=== PATIENT | male | born 1930 | race Caucasian/White ===

== ENCOUNTER 2016-11-14 12:30 | Inpatient (IN) | payer MEDICARE, OTHER ==
[~2016-11-14] VITALS: Ht 177.8 cm; Wt 83.9 kg
--- NOTE | 2016-11-14 13:04 | EKG ---
[facility] [address] [place] [address] Test Date: 2016-11-14 Test Time: 12:36:44 Pat Name: VILMA CELESTIN Department: Room: Gender: Deckhand Maintenance: [place] : 1930 Requested By: Blake CHAMBERS Order Number: [id number] Reading MD: Eugenia Almendarez Measurements Intervals [place] Rate: 90 P: 28 VA: 166 QRS: 0 QRSD: 92 T: 38 QT: 390 QTc: 481 Interpretive Statements SINUS RHYTHM VENTRICULAR PREMATURE COMPLEX(ES) IN COUPLETS No previous ECG available for comparison Electronically Signed On 11-14-2016 21:04:24 CDT by Eugenia Almendarez
--- NOTE | 2016-11-14 13:18 | RAD ---
EXAM: Chest, single view. HISTORY: Syncope. COMPARISON: None. FINDINGS: A frontal view of the chest is obtained. There is no infiltrate, effusion or pneumothorax. The heart is normal in size. There are a few calcified granulomas. There are coarse likely chronic interstitial markings. IMPRESSION: No acute pulmonary finding.
[2016-11-14 13:22] LABS: BASO # 0.1 x10^3/uL (0.0-0.2); BASO % 1 % (0-3); EOS % 2 % (0-3); HEMATOCRIT 40.3 % (39.0-53.0); HEMOGLOBIN 13.4 g/dL (13.0-17.5); LYMPH # 1.5 x10^3/uL (1.0-4.8); LYMPH % 24 % (24-48); MEAN CORPUSCULAR HEMOGLOBIN 30 pg (25-35); MEAN CORPUSCULAR HGB CONC 33 g/dL (31-37); MEAN CORPUSCULAR VOLUME 89 fL (79-100); MONO % 11 % (0-9); NEUT % 62 % (31-73); PLATELET COUNT 173 x10^3/uL (140-400); RED BLOOD COUNT 4.54 x10^6/uL (4.30-5.70); RED CELL DISTRIBUTION WIDTH 14.5 % (11.5-14.5); WHITE BLOOD COUNT 6.1 x10^3/uL (4.0-11.0)
[2016-11-14] MEDS ORDERED: FENTANYL PF 100 MCG/2 ML VIAL. IV PRN ×2 (13:30→15:15)
[2016-11-14 13:42] LABS: CREATININE 2.5 mg/dL (0.7-1.3); GFR 24.6; MAGNESIUM 2.2 mg/dL (1.8-2.4); POTASSIUM 4.1 mmol/L (3.5-5.1)
[2016-11-14] MEDS ORDERED: IV NORMAL SALINE 500ML BAG 500 ML IV ONE (14:00)
--- NOTE | 2016-11-14 14:29 | PHYS DOC ---
Past Medical History Past Medical History: CAD, High Cholesterol, Hypertension Additional Past Medical Histor: V fib arrest Past Surgical History: Other Additional Past Surgical Histo: HERNIA, Cardiac Stent x2 Alcohol Use: None Drug Use: None Adult General Chief Complaint Chief Complaint: SHOULDER INJURY HPI HPI Patient is a 86 year old male who presents with right shoulder pain and right face laceration after fall with presyncope. States he did not have total LOC, but was close. He had an episode of presyncope today and 3 days ago. He saw his PCP yesterday and was feeling well. States both episodes occurred when he changed position from sitting to standing. He tried to reach out with his right hand to catch himself today, and has muscle soreness through right shoulder area , constant, worse with ROM. He denies headache, vision changes, resting dizziness or lightheadedness, chest pain, palpitations, dyspnea, cough, abdominal pain, nausea vomiting, fever or chills, diarrhea, dysuria. Review of Systems Review of Systems Constitutional: Denies fever or chills [] Eyes: Denies change in visual acuity, redness, or eye pain [] HENT: Denies nasal congestion or sore throat [] Respiratory: Denies cough or shortness of breath [] Cardiovascular: No additional information not addressed in HPI [] GI: Denies abdominal pain, nausea, vomiting, bloody stools or diarrhea [] : Denies dysuria or hematuria [] Musculoskeletal: Denies back pain or joint pain [] Integument: Denies rash or skin lesions [] Neurologic: Denies headache, focal weakness or sensory changes [] Endocrine: Denies polyuria or polydipsia [] Current Medications Current Medications Current Medications Medications (Trade) Dose Ordered Sig/Mamta Start Time Stop Time Status Last Admin Dose Admin Acetaminophen (Tylenol) 650 mg PRN Q4HRS PRN 11/14/16 15:15 11/15/16 15:14 Fentanyl Citrate (Fentanyl 2ml Vial) 50 mcg PRN Q2HR PRN 11/14/16 15:15 11/15/16 15:14 Fentanyl Citrate 25 mcg 25 mcg PRN Q15MIN PRN 11/14/16 13:30 11/14/16 13:40 25 MCG Ondansetron HCl (Zofran) 4 mg PRN Q8HRS PRN 11/14/16 15:15 11/15/16 15:14 Sodium Chloride (Iv Sodium Chloride 0.9% 500ml Bag) 500 ml @ 500 mls/hr 1X ONCE 11/14/16 14:00 11/14/16 14:59 DC Allergies Allergies Allergies Coded Allergies Type Severity Reaction Last Updated Verified No Known Drug Allergies 11/14/16 No Physical Exam Physical Exam Constitutional: Well developed, well nourished, no acute distress, non-toxic appearance. [] HENT: Normocephalic, bilateral external ears normal, oropharynx moist, no oral exudates, nose normal. Small abrasion to right cheek that is nonbleeding. No monk sign, hemotympanum, or raccoon eyes [] Eyes: PERRLA, EOMI. [] Neck: Normal range of motion, no tenderness, supple. [] Cardiovascular:Heart rate regular rhythm [] Lungs & Thorax: Bilateral breath sounds clear to auscultation [] Abdomen: Bowel sounds normal, soft, no tenderness. [] Skin: Warm, dry, no erythema, no rash. [] Back: No tenderness, no CVA tenderness. [] Extremities: No tenderness, ROM intact, no edema. [] Neurologic: Alert and oriented X 3, normal motor function, normal sensory function, no focal deficits noted. [] Psychologic: Affect normal, judgement normal, mood normal. [] Current Patient Data Vital Signs Vital Signs Date Time Temp Pulse Resp B/P Pulse Ox O2 Delivery O2 Flow Rate FiO2 11/14/16 13:40 24 98 Room Air 11/14/16 12:45 97.8 90 153/106 97.8 Lab Values Laboratory Tests Test 11/14/16 13:13 White Blood Count 6.1x10^3/uL (4.0-11.0) Red Blood Count 4.54x10^6/uL (4.30-5.70) Hemoglobin 13.4g/dL (13.0-17.5) Hematocrit 40.3% (39.0-53.0) Mean Corpuscular Volume 89fL (79-100) Mean Corpuscular Hemoglobin 30pg (25-35) Mean Corpuscular Hemoglobin Concent 33g/dL (31-37) Red Cell Distribution Width 14.5% (11.5-14.5) Platelet Count 173x10^3/uL (140-400) Neutrophils (%) (Auto) 62% (31-73) Lymphocytes (%) (Auto) 24% (24-48) Monocytes (%) (Auto) 11% (0-9) H Eosinophils (%) (Auto) 2% (0-3) Basophils (%) (Auto) 1% (0-3) Neutrophils # (Auto) 3.8x10^3uL (1.8-7.7) Lymphocytes # (Auto) 1.5x10^3/uL (1.0-4.8) Monocytes # (Auto) 0.7x10^3/uL (0.0-1.1) Eosinophils # (Auto) 0.1x10^3/uL (0.0-0.7) Basophils # (Auto) 0.1x10^3/uL (0.0-0.2) Sodium Level 140mmol/L (136-145) Potassium Level 4.1mmol/L (3.5-5.1) Chloride Level 104mmol/L (98-107) Carbon Dioxide Level 21mmol/L (21-32) Anion Gap 15 (6-14) H Blood Urea Nitrogen 57mg/dL (8-26) H Creatinine 2.5mg/dL (0.7-1.3) H Estimated GFR (Cockcroft-Gault) 24.6 Glucose Level 135mg/dL (70-99) H Calcium Level 9.0mg/dL (8.5-10.1) Magnesium Level 2.2mg/dL (1.8-2.4) Troponin I Quantitative 0.065ng/mL (0.000-0.055) XZ-Zze-H-Type Natriuretic Peptide 2436pg/mL (0-449) H Laboratory Tests 11/14/16 13:13 Laboratory Tests 11/14/16 13:13 EKG EKG EKG as interpreted by me as normal sinus rhythm, rate 90, no ST-T changes, P-R 166, QTC 41, and frequent PVCs Radiology/Procedures Radiology/Procedures Chest xray as interpreted by me with no acute cardiopulmonary disease process Head CT without contrast IMPRESSION: 1. Chronic findings as described above. 2. No acute intracranial abnormality is detected. CT of the cervical spine without contrast, 11/14/2016: IMPRESSION: 1. Moderate multilevel degenerative change as described above. 2. No acute bony abnormality is detected. DICTATED and SIGNED BY: BOLIVAR VILLANUEVA MD DATE: 11/14/16 0593 Course & Med Decision Making Course & Med Decision Making Pertinent Labs and Imaging studies reviewed. (See chart for details) Presyncopal/syncopal episodes are concerning. Imaging is nonacute as above. Has acute on chronic renal insufficiency as well as elevated troponin. Discussed case with Dr. Oneal, who will admit. Discussed case with Dr. Seals, cardiology , for routine consult. Dragon Disclaimer Dragon Disclaimer This electronic medical record was generated, in whole or in part, using a voice recognition dictation system. Departure Departure Impression: Primary Impression: Pre-syncope Additional Impressions: Acute renal failure Elevated troponin Disposition: ADMITTED INPATIENT Condition: STABLE Referrals: LAKHWINDER ONEAL MD (PCP) Problem Qualifiers Additional Impressions: Acute renal failure Acute renal failure type: unspecified Qualified Code: N17.9 - Acute kidney failure, unspecified Blake CHAMBERS MD Nov 14, 2016 14:29
--- NOTE | 2016-11-14 14:59 | RAD ---
CT of the head without contrast, 11/14/2016: History: Syncope, fall, head injury There is mild cerebral atrophy. There are mild bilateral deep white matter lucencies compatible with chronic ischemic change. The ventricles are within normal limits in size. There is no shift of the midline structures. There is no evidence of acute intracranial hemorrhage or mass effect. There is moderate calcific plaquing of the distal internal carotid and vertebral arteries. A small scalp hematoma is noted in the right frontal region. No underlying bony abnormality is detected. IMPRESSION: 1. Chronic findings as described above. 2. No acute intracranial abnormality is detected. CT of the cervical spine without contrast, 11/14/2016: History: Fall, injury Noncontrast scans were obtained with multiplanar reconstructions produced. The cervical vertebral heights are well-maintained. There is moderate disc space narrowing and marginal spurring at multiple levels in the mid and lower cervical spine. There are moderate degenerative changes involving multiple facet joints bilaterally. There is a minimal associated spondylolisthesis at C3-4 and C5-6 due to facet joint arthropathy. There are mild scattered posterior disc bulges. There is mild associated narrowing of the central spinal canal at several levels. No acute fracture or dislocation is evident. There is moderate calcific plaquing at the carotid bifurcations. IMPRESSION: 1. Moderate multilevel degenerative change as described above. 2. No acute bony abnormality is detected. PQRS Compliance Statement: One or more of the following individualized dose reduction techniques were utilized for this examination: 1. Automated exposure control 2. Adjustment of the mA and/or kV according to patient size 3. Use of iterative reconstruction technique
[2016-11-14] MEDS ORDERED: ONDANSETRON PF 4 MG/2 ML VIAL. IV PRN (15:15)
[2016-11-14] MEDS ORDERED: ACETAMINOPHEN 325 MG TABLET. PO PRN (15:15)
--- NOTE | 2016-11-14 16:12 | PDOC2 ---
CYNTHIA GIANG CONVERTIBLE POWER SHOVEL OPERATOR 11/14/16 1612: CARDIAC CONSULT DATE OF CONSULT Date of Consult DATE: 11/14/16 TIME: 15:38 REASON FOR CONSULT Reason for Consult: presyncope REFERRING PHYSICIAN Referring Physician: Horace SOURCE Source: Chart review, Patient HISTORY OF PRESENT ILLNESS HISTORY OF PRESENT ILLNESS This is a pleasant 86 yo male admitted for complains of lightheadedness and fall. Reports that Sunday afternoon he was at [employer] and got lightheaded standing up to read the gospel but immediately resolved after sitting. He end up going home prematurely since he was not feeling good afterwards. He did remember not drinking enough fluids at that time. Sunday around 9AM he started not to feel funny but no experiences of lightheadedness. He just decided to rest that day. Both days he did not have any symptoms of palpitations, SOA nor CP. He has been compliant with his medications. Sunday he did well and no notable complaints till today Sunday when he was no feeling that well to begin with. Around on he was doing laundry at his home with several motions of bending over. After getting out of the laundry room he felt lightheaded. He then leaned to the fridge and decided to sit down trying to reach for the table when he saw floaters, felt lightheaded and noted blurred vision and vision darkening. No tinnitus. No facial droop nor unilateral weakness. Reports that he remembers him falling and no lost of consciousness. after fall he did sustained right facial laceration, supraorbital contusion with swelling and possible contusion or strain to right shoulder. Denies any palpitations, CP, SOA with this event. He then called his friend, a golf club head inspector and adjuster, since his phone is just right by him and was brought to ED. He has been doing well lately till the start of last weekend. Kaleb to do his ADLs without difficulty. PAST MEDICAL HISTORY Cardiovascular: CAD (NSTEMI), CHF (diastolic), HTN, Syncope (associated with NSTEMI and sustained VT), Hyperlipidemia Pulmonary: No pertinent hx CENTRAL NERVOUS SYSTEM: Other (No pertinent history) GI: No pertinent hx Heme/Onc: No pertinent hx Hepatobiliary: No pertinent hx Psych: No pertinent hx Musculoskeletal: Osteoarthritis, Other (traumatic fall 11/2015 associated with very brief cardiac arrest) Infectious disease: No pertinent hx ENT: No pertinent hx Renal/: Chronic renal insuff (CKD3) Endocrine: No pertinent hx Dermatology: No pertinent hx PAST SURGICAL HISTORY Past Surgical History: Arthroscopy (left meniscus repair), Hernia Repair ( right inguinal), Other (PCI/ORQUIDEA to OM1 and LCx 11/2015) FAMILY HISTORY Family History noncontributory to CV SOCIAL HISTORY Smoke: No ALCOHOL: occassional Drugs: None Lives: Alone CURRENT MEDICATIONS CURRENT MEDICATIONS Current Medications Medications (Trade) Dose Ordered Sig/Mamta Route PRN Reason Start Time Stop Time Status Last Admin Dose Admin Fentanyl Citrate (Fentanyl 2ml Vial) 25 mcg PRN Q15MIN PRN IV pain greater than 3 for 3 dose 11/14/16 13:30 11/14/16 13:40 ALLERGIES ALLERGIES: Coded Allergies: No Known Drug Allergies (Unverified , 11/14/16) ROS Review of System 14 point ROS evaluated with pertinent positives noted per HPI PHYSICAL EXAM General: Alert, Oriented X3, Cooperative, No acute distress HEENT: Atraumatic, Mucous membr. moist/pink Lungs: Clear to auscultation, Normal air movement Heart: Normal S1, Normal S2, Other (SR with frequent PVCs) Abdomen: Soft, No tenderness Extremities: No cyanosis, Other (1-2+ bilateral LE pitting edema) Skin: Other (right facial laceration; right supraorbital contusion swelling; no visual disturbances) Neuro: Normal speech, Sensation intact Psych/Mental Status: Mental status NL, Mood NL MUSCULOSKELETAL: Other (limited ROM to left shoulder due to pain) VITALS VITALS Vital Signs Date Time Temp Pulse Resp B/P Pulse Ox O2 Delivery O2 Flow Rate FiO2 11/14/16 13:40 24 98 Room Air 11/14/16 12:45 97.8 90 153/106 97.8 LABS Lab: Laboratory Tests Test 11/14/16 13:13 White Blood Count 6.1x10^3/uL (4.0-11.0) Red Blood Count 4.54x10^6/uL (4.30-5.70) Hemoglobin 13.4g/dL (13.0-17.5) Hematocrit 40.3% (39.0-53.0) Mean Corpuscular Volume 89fL (79-100) Mean Corpuscular Hemoglobin 30pg (25-35) Mean Corpuscular Hemoglobin Concent 33g/dL (31-37) Red Cell Distribution Width 14.5% (11.5-14.5) Platelet Count 173x10^3/uL (140-400) Neutrophils (%) (Auto) 62% (31-73) Lymphocytes (%) (Auto) 24% (24-48) Monocytes (%) (Auto) 11% (0-9) Eosinophils (%) (Auto) 2% (0-3) Basophils (%) (Auto) 1% (0-3) Neutrophils # (Auto) 3.8x10^3uL (1.8-7.7) Lymphocytes # (Auto) 1.5x10^3/uL (1.0-4.8) Monocytes # (Auto) 0.7x10^3/uL (0.0-1.1) Eosinophils # (Auto) 0.1x10^3/uL (0.0-0.7) Basophils # (Auto) 0.1x10^3/uL (0.0-0.2) Sodium Level 140mmol/L (136-145) Potassium Level 4.1mmol/L (3.5-5.1) Chloride Level 104mmol/L (98-107) Carbon Dioxide Level 21mmol/L (21-32) Anion Gap 15 (6-14) Blood Urea Nitrogen 57mg/dL (8-26) Creatinine 2.5mg/dL (0.7-1.3) Estimated GFR (Cockcroft-Gault) 24.6 Glucose Level 135mg/dL (70-99) Calcium Level 9.0mg/dL (8.5-10.1) Magnesium Level 2.2mg/dL (1.8-2.4) Troponin I Quantitative 0.065ng/mL (0.000-0.055) DV-Eji-N-Type Natriuretic Peptide 2436pg/mL (0-449) ASSESSMENT/PLAN ASSESSMENT/PLAN 1. Presyncope with fall (right facial laceration/right supraorbital contusion/ right shoulder pain): Likely vagal episode with element of orthostasis/ dehydration 2. Arrhythmia: frequent PVCs otherwise SR on EKG without acute changes. Bradyarrhythmia possible. 3. CAD: 11/2015 PCI/ORQUIDEA to OM1 and LCx with notable 50% RCA midstenosis. EF at that time was 55%. CP free. 4. Hx of syncope/cardiac arrest associated with NSTEMI and sustained VT r/t CAD on 11/2015 5. Chronic diastolic CHF: compensated, no recent lasix, has been taking lasix intermittently. On lisinopril/HCTZ combo at home 6. HTN: controlled, reports controlled at home as well 7. HLP 8. Mild troponin elevation: initially at 0.065 in the setting renal insufficiency 9. WARNER on CKD: suspect baseline stage 3. likely inadequate po hydration. 10. UTI: per PCP Recommendation 1. Will check for orthostasis. Hold lisinopril/HCTZ. 2. Monitor tele for any significant arrhythmia. TTE today 3. Continue secondary prevention 4. If no significant rhythm changes then will plan for event monitor vs loop recorder. 5. Trend troponin, will consider for ischemic workup pending TTE and trop trend. NPO p MN 6. Continue with secondary prevention. Plavix 7. IVF received in ED. Maintain adequate hydration. 8. TSH, lipids, 9. Recommend right shoulder Xray will defer to PCP 10. Check CK. Recommend renal consult, defer to PCP 11. On adalat at home. Will hold this and will place on low dose metoprolol and note response overnight. 12. PRN IV hydralazine Problems: JUAN CORTES MD 11/15/16 1508: CARDIAC CONSULT ALLERGIES ALLERGIES: Coded Allergies: No Known Drug Allergies (Unverified , 11/14/16) ASSESSMENT/PLAN ASSESSMENT/PLAN Patient seen and examined 11/15/16. Agree with ACCOUNT SUPPORT REP's assessment and plan. Patient with history of coronary artery disease has been admitted with near syncope. Check orthostatics. Monitor with telemetry to rule out any significant arrhythmias. Check 2-D echo to rule out any significant structural abnormalities. We will consider further ischemic workup based on trend of serial cardiac enzymes. Thank you for the consultation. Problems: CYNTHIA GIANG APRN Nov 14, 2016 16:12 JUAN CORTES MD Nov 15, 2016 15:08
[2016-11-14 16:31] VITALS: BP 146/77
--- NOTE | 2016-11-14 16:45 | ACF ---
Admission Forms Criteria SYNCOPE Clinical Indications for Admission to Inpatient Care ( Place 'X' for any and all applicable criteria): Admission is indicated for syncope and ANY ONE of the following (1)(2)(3)(4)(5) (6)(7) : [ ]I. Inpatient admission required rather than observation care (Also use Syncope: Observation Care Criteria as appropriate) because of ANY ONE of the following: [ ]a) Hemodynamic instability that is severe or persistent [ ]b) Cardiac arrhythmias of immediate concern identified or strongly suspected (eg, needs electrophysiologic study) [ ]c) Acute coronary syndrome identified (Also use Myocardial Infarction or Angina Criteria form ) [ ]d) Structural cardiac disorder (eg, aortic stenosis) suspected as cause that requires immediate correction [ ]e) Respiratory symptoms (eg, dyspnea, tachypnea) that are severe or persistent [ ]f) Neurologic signs or symptoms that are severe or persistent ( eg, stroke, seizures, altered mental status) [ ]g) Severe electrolyte abnormalities requiring inpatient care [ ]h) Supplemental oxygen or respiratory treatment for over 24 hrs that are performable only in acute inpatient setting [ ]i) IV fluid to replace significant ongoing (eg, for over 24 hrs ) losses (>3 L/m2 per day) [ ]j) Continuous intravenous infusion of anticoagulation, platelet inhibitor, vasoactive, or antiarrhythmic medication(15)(16) [ ]k) Pulmonary artery catheter monitoring [ ]l) Temporary pacemaker placement(17) [ ]m) Emergent cardioversion(18) [ ]n) Other conditions, treatment or monitoring requiring inpatient admission [ ]II. Suspicion of imminently dangerous cause (eg, rare causes like pericardial tamponade, pulmonary embolism) [X]III. Syncope causing severe injury requiring hospitalization Extended stay beyond goal length of stay may be needed for(28) [ ]a) Dangerous arrhythmia(15)(23)(27)(29) [ ]b) Myocardial ischemia [ ]c) Seizure disorder [ ]d) Syncope-related injuries The original [employer] content created by [employer] has been revised. The portions of the content which have been revised are identified through the use of italic text or in bold, and [facility] has neither reviewed nor approved the modified material. All other unmodified content is copyright [facility]. Please see references footnoted in the original [facility] 2016 Admission Criteria Met?: Yes ARACELI COPELAND Nov 14, 2016 16:45
[2016-11-14 16:52] LABS: ALBUMIN 3.6 g/dL (3.4-5.0); ALBUMIN/GLOBULIN RATIO 1.2 (1.0-1.7); CREATININE 2.4 mg/dL (0.7-1.3); GFR 25.7; POTASSIUM 4.1 mmol/L (3.5-5.1); TOTAL BILIRUBIN 0.5 mg/dL (0.2-1.0); TOTAL PROTEIN 6.7 g/dL (6.4-8.2)
[2016-11-14 17:50] VITALS: BP 152/67
[2016-11-14 17:55] VITALS: BP 141/67
[2016-11-14 18:00] VITALS: BP 125/71
[2016-11-14 18:39] LABS: BILIRUBIN,URINE NEGATIVE (NEG); GLUCOSE,URINE NEGATIVE (NEG); NITRITE,URINE NEGATIVE (NEG); PROTEIN,URINE 100 mg/dL (NEG-TRACE); UROBILINOGEN,URINE 0.2 mg/dL (0.2 mg/dL)
[2016-11-14] MEDS ORDERED: ADENOSINE 6 MG/2 ML VIAL. IV ONE ×2 (18:45)
[2016-11-14 18:54] LABS: BACTERIA,URINE 0 /HPF (0-FEW); WBC,URINE 20-40 /HPF (0-4)
[2016-11-14] MEDS ORDERED: AMIODARONE 900 MG in IV DEXTROSE 5% 500 ML IV PRN (19:00)
[2016-11-14] MEDS ORDERED: AMIODARONE 150 MG in IV DEXTROSE 5% 100 ML IV ONE (19:00)
--- NOTE | 2016-11-14 21:10 | PDOC ---
GENERAL General: see dictated H&P. Problems: VITAL SIGNS Vital Signs: Vital Signs Date Time Temp Pulse Resp B/P Pulse Ox O2 Delivery O2 Flow Rate FiO2 11/14/16 19:30 Nasal Cannula 2.0 11/14/16 18:54 87 146/77 11/14/16 18:00 18 96 11/14/16 16:31 97.3 97.3 ALLERGIES Allergies: Allergies Coded Allergies Type Severity Reaction Last Updated Verified No Known Drug Allergies 11/14/16 No MEDS Medications: Current Medications Medications (Trade) Dose Ordered Sig/Mamta Start Time Stop Time Status Last Admin Dose Admin Acetaminophen (Tylenol) 650 mg PRN Q4HRS PRN 11/14/16 15:15 11/15/16 15:14 Adenosine (Adenocard) 12 mg 1X ONCE 11/14/16 18:45 11/14/16 18:46 DC Amiodarone HCl 150 mg/Dextrose 103 ml @ 618 mls/hr 1X ONCE 11/14/16 19:00 11/14/16 19:09 DC 11/14/16 18:54 618 MLS/HR Amiodarone HCl/ Dextrose (Cordarone) 518 ml @ 0 mls/hr CONT PRN 11/14/16 19:00 Clopidogrel Bisulfate (Plavix) 75 mg [id number] 11/15/16 08:00 Fentanyl Citrate (Fentanyl 2ml Vial) 50 mcg PRN Q2HR PRN 11/14/16 15:15 11/15/16 15:14 Fentanyl Citrate 25 mcg 25 mcg PRN Q15MIN PRN 11/14/16 13:30 11/14/16 13:40 25 MCG Hydralazine HCl 10 mg 10 mg PRN Q4HRS PRN 11/14/16 16:30 Metoprolol Tartrate (Lopressor) 12.5 mg BID 11/14/16 21:00 Ondansetron HCl (Zofran) 4 mg PRN Q8HRS PRN 11/14/16 15:15 11/15/16 15:14 Sodium Chloride (Iv Sodium Chloride 0.9% 500ml Bag) 500 ml @ 500 mls/hr 1X ONCE 11/14/16 14:00 11/14/16 14:59 DC 11/14/16 16:02 500 MLS/HR LAB Lab: Laboratory Tests Test 11/14/16 13:13 11/14/16 17:30 11/14/16 19:45 White Blood Count 6.1x10^3/uL (4.0-11.0) Red Blood Count 4.54x10^6/uL (4.30-5.70) Hemoglobin 13.4g/dL (13.0-17.5) Hematocrit 40.3% (39.0-53.0) Mean Corpuscular Volume 89fL (79-100) Mean Corpuscular Hemoglobin 30pg (25-35) Mean Corpuscular Hemoglobin Concent 33g/dL (31-37) Red Cell Distribution Width 14.5% (11.5-14.5) Platelet Count 173x10^3/uL (140-400) Neutrophils (%) (Auto) 62% (31-73) Lymphocytes (%) (Auto) 24% (24-48) Monocytes (%) (Auto) 11% (0-9) Eosinophils (%) (Auto) 2% (0-3) Basophils (%) (Auto) 1% (0-3) Neutrophils # (Auto) 3.8x10^3uL (1.8-7.7) Lymphocytes # (Auto) 1.5x10^3/uL (1.0-4.8) Monocytes # (Auto) 0.7x10^3/uL (0.0-1.1) Eosinophils # (Auto) 0.1x10^3/uL (0.0-0.7) Basophils # (Auto) 0.1x10^3/uL (0.0-0.2) Sodium Level 140mmol/L (136-145) Potassium Level 4.1mmol/L (3.5-5.1) Chloride Level 104mmol/L (98-107) Carbon Dioxide Level 20mmol/L (21-32) Anion Gap 16 (6-14) Blood Urea Nitrogen 56mg/dL (8-26) Creatinine 2.4mg/dL (0.7-1.3) Estimated GFR (Cockcroft-Gault) 25.7 BUN/Creatinine Ratio 23 (6-20) Glucose Level 136mg/dL (70-99) Calcium Level 9.0mg/dL (8.5-10.1) Magnesium Level 2.2mg/dL (1.8-2.4) Total Bilirubin 0.5mg/dL (0.2-1.0) Aspartate Amino Transf (AST/SGOT) 21U/L (15-37) Alanine Aminotransferase (ALT/SGPT) 26U/L (16-63) Alkaline Phosphatase 78U/L (46-116) Creatine Kinase 261U/L (39-308) Troponin I Quantitative 0.065ng/mL (0.000-0.055) 0.099ng/mL (0.000-0.055) RT-Gxv-B-Type Natriuretic Peptide 2436pg/mL (0-449) Total Protein 6.7g/dL (6.4-8.2) Albumin 3.6g/dL (3.4-5.0) Albumin/Globulin Ratio 1.2 (1.0-1.7) Thyroid Stimulating Hormone (TSH) 1.430uIU/mL (0.358-3.74) Urine Collection Type Unknown Urine Color Yellow Urine Clarity Clear Urine pH 6.0 Urine Specific [place] 1.015 Urine Protein 100mg/dL (NEG-TRACE) Urine Glucose (UA) Negativemg/dL (NEG) Urine Ketones (Stick) Negativemg/dL (NEG) Urine Blood Small (NEG) Urine Nitrite Negative (NEG) Urine Bilirubin Negative (NEG) Urine Urobilinogen Dipstick 0.2mg/dL (0.2 mg/dL) Urine Leukocyte Esterase Moderate (NEG) Urine RBC 1-2/HPF (0-2) Urine WBC 20-40/HPF (0-4) Urine Bacteria 0/HPF (0-FEW) LAKHWINDER AMAYA MD Nov 14, 2016 21:09
[2016-11-14] MEDS: METOPROLOL TART IMMED RELEASE 25 MG TABLET PO SCH (22:19)
[2016-11-14 22:48] VITALS: BP 144/75
--- NOTE | 2016-11-15 01:07 | HP ---
ADMIT DATE: 11/14/2016 CHIEF COMPLAINT AND HISTORY OF PRESENT ILLNESS: This 86-year-old white male is well known to me from followup in the office. The patient had a presyncopal episode on the day of admission with fall sustaining a right shoulder injury as well as right facial lacerations. He states he did not completely lose consciousness, but things started to go dark. I had seen him in the office the day prior to this admission when he had had a ____ on Sunday afternoon where he stood up and got ringing in his ears and sat back down and it went away almost immediately and ____. There was another spell on Sunday where he had just not felt good allover in a week, but no lightheadedness or anything associated with that. Because of the presyncopal episode and the above, the patient was admitted to the hospital. PAST MEDICAL HISTORY: Remarkable for coronary artery disease with stenting of the circumflex coronary artery, has a history of hypertension, hyperlipidemia, chronic kidney disease with a creatinine in the 2 range, had prior V-fib with arrest necessitating a stenting to his circumflex. He has a history of hernia repair. MEDICATIONS: Brought with the patient, listed on the computer and have been addressed. ALLERGIES: He has no known drug allergies. SOCIAL HISTORY: He is , nonsmoker, nondrinker, does not use drugs, he is very active. FAMILY HISTORY: Noncontributory. REVIEW OF SYSTEMS: As mentioned above. PHYSICAL EXAMINATION: GENERAL: He is a well-developed, well-nourished white male appearing younger than his stated age. HEAD, EYES, EARS, NOSE AND THROAT: Remarkable for a small abrasion in the right cheek. NECK: Supple without adenopathy or thyromegaly. CHEST: Clear to auscultation and percussion. HEART: Regular rate and rhythm without S3, S4, or murmur. ABDOMEN: Soft, nontender, without hepatosplenomegaly or masses. EXTREMITIES: Without cyanosis, clubbing, or edema. He has some pain with range of motion of the right shoulder. NEUROLOGIC: Nonfocal. The patient did have imaging done of the head. CT of the head showing no acute changes as well as a CT of the neck showing no acute changes, and chest x-ray was unremarkable. Laboratory screening in the office showed essentially normal CBC, creatinine of 2.4 with BUN of 56, and BNP of 2400. Troponin was elevated at 0.065 on admission. Urine showing 20-40 white blood cells, but no bacteria. IMPRESSION: Presyncopal episode with right shoulder injury as listed above. PLAN: The patient has been admitted. Cardiology has been consulted with his cardiac history. The patient will be monitored, managed, and treated appropriately. LAKHWINDER AMAYA MD DR: DORA/greyson JOB#: [id number] / [id number]
[2016-11-15 02:48] VITALS: BP 135/73
[2016-11-15 04:59] LABS: CHOLESTEROL/HDL RATIO 2.2
[2016-11-15 07:00] VITALS: BP 158/74
[2016-11-15] MEDS: CLOPIDOGREL BISULFATE 75 MG TABLET PO SCH (08:25)
[2016-11-15] MEDS: METOPROLOL TART IMMED RELEASE 25 MG TABLET PO SCH ×2 (08:27→21:54)
[2016-11-15] MEDS ORDERED: HEPARIN 25,000UTS/500ML PREMIX 500 ML IV PRN (09:15)
[2016-11-15] MEDS ORDERED: ASPIRIN 81 MG TAB.CHEW PO SCH (09:15)
[2016-11-15] MEDS ORDERED: HEPARIN for IV BOLUS 10,000 UNIT/10 ML VIAL. IV PRN (09:15)
[2016-11-15] MEDS ORDERED: HEPARIN for IV BOLUS 10,000 UNIT/10 ML VIAL. IV ONE (09:45)
[2016-11-15] MEDS ORDERED: METOPROLOL TART IMMED RELEASE 25 MG TABLET PO ONE (09:45)
--- NOTE | 2016-11-15 09:51 | PDOC ---
CYNTHIA GIANG RAILROAD REPAIRER 11/15/16 0951: CARDIO Progress Notes Date and Time Date of Service 11/15/2016 Time of Evaluation 0900 Subjective Subjective: No Chest Pain, No shortness of breath, No Palpitations, No Dizziness Vitals Vitals Vital Signs Date Time Temp Pulse Resp B/P Pulse Ox O2 Delivery O2 Flow Rate FiO2 11/15/16 08:27 75 158/74 11/15/16 07:00 98.1 22 99 Nasal Cannula 98.1 11/15/16 02:48 2.0 Weight Weight [ ] Input and Output Intake and Output Intake and Output 11/15/16 07:00 Intake Total 250 ml Output Total 350 ml Balance -100 ml Intake Oral 250 ml Output Urine Total 350 ml Laboratory Labs Laboratory Tests Test 11/14/16 13:13 11/14/16 17:30 11/14/16 19:45 11/15/16 03:12 White Blood Count 6.1x10^3/uL (4.0-11.0) Red Blood Count 4.54x10^6/uL (4.30-5.70) Hemoglobin 13.4g/dL (13.0-17.5) Hematocrit 40.3% (39.0-53.0) Mean Corpuscular Volume 89fL (79-100) Mean Corpuscular Hemoglobin 30pg (25-35) Mean Corpuscular Hemoglobin Concent 33g/dL (31-37) Red Cell Distribution Width 14.5% (11.5-14.5) Platelet Count 173x10^3/uL (140-400) Neutrophils (%) (Auto) 62% (31-73) Lymphocytes (%) (Auto) 24% (24-48) Monocytes (%) (Auto) 11% (0-9) Eosinophils (%) (Auto) 2% (0-3) Basophils (%) (Auto) 1% (0-3) Neutrophils # (Auto) 3.8x10^3uL (1.8-7.7) Lymphocytes # (Auto) 1.5x10^3/uL (1.0-4.8) Monocytes # (Auto) 0.7x10^3/uL (0.0-1.1) Eosinophils # (Auto) 0.1x10^3/uL (0.0-0.7) Basophils # (Auto) 0.1x10^3/uL (0.0-0.2) Sodium Level 140mmol/L (136-145) Potassium Level 4.1mmol/L (3.5-5.1) Chloride Level 104mmol/L (98-107) Carbon Dioxide Level 20mmol/L (21-32) Anion Gap 16 (6-14) Blood Urea Nitrogen 56mg/dL (8-26) Creatinine 2.4mg/dL (0.7-1.3) Estimated GFR (Cockcroft-Gault) 25.7 BUN/Creatinine Ratio 23 (6-20) Glucose Level 136mg/dL (70-99) Calcium Level 9.0mg/dL (8.5-10.1) Magnesium Level 2.2mg/dL (1.8-2.4) Total Bilirubin 0.5mg/dL (0.2-1.0) Aspartate Amino Transf (AST/SGOT) 21U/L (15-37) Alanine Aminotransferase (ALT/SGPT) 26U/L (16-63) Alkaline Phosphatase 78U/L (46-116) Creatine Kinase 261U/L (39-308) Troponin I Quantitative 0.065ng/mL (0.000-0.055) 0.099ng/mL (0.000-0.055) 0.256ng/mL (0.000-0.055) EH-Psb-P-Type Natriuretic Peptide 2436pg/mL (0-449) Total Protein 6.7g/dL (6.4-8.2) Albumin 3.6g/dL (3.4-5.0) Albumin/Globulin Ratio 1.2 (1.0-1.7) Thyroid Stimulating Hormone (TSH) 1.430uIU/mL (0.358-3.74) Urine Collection Type Unknown Urine Color Yellow Urine Clarity Clear Urine pH 6.0 Urine Specific [place] 1.015 Urine Protein 100mg/dL (NEG-TRACE) Urine Glucose (UA) Negativemg/dL (NEG) Urine Ketones (Stick) Negativemg/dL (NEG) Urine Blood Small (NEG) Urine Nitrite Negative (NEG) Urine Bilirubin Negative (NEG) Urine Urobilinogen Dipstick 0.2mg/dL (0.2 mg/dL) Urine Leukocyte Esterase Moderate (NEG) Urine RBC 1-2/HPF (0-2) Urine WBC 20-40/HPF (0-4) Urine Bacteria 0/HPF (0-FEW) Triglycerides Level 76mg/dL (0-150) Cholesterol Level 121mg/dL (0-200) LDL Cholesterol, Calculated 52mg/dL (0-100) VLDL Cholesterol, Calculated 15mg/dL (0-40) HDL Cholesterol 54mg/dL (40-60) Cholesterol/HDL Ratio 2.2 Physical Exam HEENT: Neck Supple W Full Motion Chest: Symmetric LUNGS: Clear to Auscultation Heart: S1S2, RRR (SR, episode of sutained VT yesterday), murmurs (2/6 systolic murmur to LLS border) Abdomen: Soft N/T Extremities: No Calf Tenderness, Other (1-2+ bilateral LE pitting edema) Neurology: alert, oriented, follow commands Assessment Assessment 1. Sustained VT about 1800 (approximately 20 minutes duration per staff) with syncope at rest (approx 5 minutes per staff): spontaneously resolved, unresponsive to adenosines 2. Presyncope at home with traumatic fall: likely occurrence as above. Possible mild orthostasis. 3. CAD: 11/2015 PCI/ORQUIDEA to OM1 and LCx with notable 50% RCA midstenosis. EF at that time was 55%. Remains CP free. 4. Elevated troponin: currently at 0.256, expected with previous arrhythmia. Will need to rule out underlying ischemic etiology in relation to #1. 5. Hx of syncope/cardiac arrest associated with NSTEMI and sustained VT r/t CAD on 11/2015 6. 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 HTN: controlled 8. HLP 9. Chronic diastolic CHF: compensated Recommendations 1. Continue with DAPT and amiodarone, increase BB, start on heparin drip 2. Consult renal, anticipate LHC tomorrow pending renal optimization 3. Repeat EKG, TTE pending 4. Continue to hold HCTZ/ACEi/adalat 5. Will start on norvasc pending BP trend after BB adjustment 6. Repeat EKG and troponin 7. VT ablation AICD is a consideration pending result of LHC 8. BMP and Mg today replace K and Mg as warranted. JUAN CORTES MD 11/15/16 9125: CARDIO Progress Notes Assessment Assessment Patient seen and examined. Agree with SPECIAL EDUCATION ADMINISTRATOR's assessment and plan. Episode of approximately 20 minute run of symptomatic ventricular tachycardia noted. Plan for cardiac catheterization in the morning to rule out any significant coronary artery disease. If this does not show any significant stenosis, we will consider AICD implantation for secondary prevention. CYNTHIA GIANG APRN Nov 15, 2016 09:51 JUAN CORTES MD Nov 15, 2016 15:15
--- NOTE | 2016-11-15 10:05 | EKG ---
[facility] [address] [place] [address] Test Date: 2016-11-15 Test Time: 10:03:43 Pat Name: VILMA CELESTIN Department: Room: 208 1 Gender: M Relations Specialist: BLAKE : 1930 Requested By: CYNTHIA GIANG Order Number: [id number] Reading MD: Javier Garcia Measurements Intervals [place] Rate: 70 P: 33 IA: 186 QRS: 1 QRSD: 92 T: 41 QT: 416 QTc: 452 Interpretive Statements SINUS RHYTHM QRS(T) CONTOUR ABNORMALITY CONSIDER ANTEROLATERAL MYOCARDIAL DAMAGE POSSIBLY ABNORMAL ECG Electronically Signed On 11-20-2016 17:01:01 CDT by Javier Garcia
[2016-11-15] MEDS ORDERED: CLOP75TA PO (10:33)
[2016-11-15] MEDS ORDERED: NIFE60TA16 PO (10:33)
[2016-11-15] MEDS ORDERED: LISI1TAB5 PO (10:33)
[2016-11-15] MEDS ORDERED: ATOR40TA59 PO (10:33)
--- NOTE | 2016-11-15 10:40 | EKG ---
[facility] [address] [place] [address] Test Date: 2016-11-14 Test Time: 18:10:35 Pat Name: VILMA CELESTIN Department: Room: 208 1 Gender: M Licensed Professional Counselor: BLAKE : 1930 Requested By: LAKHWINDER AMAYA Order Number: [id number] Reading MD: Eugenia Almendarez Measurements Intervals [place] Rate: 213 P: DC: QRS: 32 QRSD: 126 T: -152 QT: 260 QTc: 491 Interpretive Statements WIDE QRS TACHYCARDIA CANNOT RULE OUT VETRICULAR TACHYCARDIA ABNORMAL ECG RI6.01 Compared to ECG 11/14/2016 12:36:44 Sinus rhythm no longer present Electronically Signed On 11-15-2016 20:00:10 CDT by Eugenia Almendarez
--- NOTE | 2016-11-15 10:57 | PDOC2 ---
CONSULT Date of Consult Date of Consult DATE: 11/15/16 TIME: 10:53 Reason for Consult Reason for Consult: RENAL FAILURE Referring Physician Referring Physician: JOSE LUIS Identification/Chief Complaint Chief Complaint SYNCOPE Source Source: Chart review, Patient History of Present Illness Reason for Visit: THIS IS AN 86 YR OLD WITH SYNCOPE AND CARDIAC ARRHYTHMIA. HIS TROPONIN HAS BEEN HIGH. HE IS IN NEED OF A HEART CATH. HIS CR IS 2.4. NO OLD RECORDS HERE. ACCORDING TO DR AMAYA'S NOTE HIS BASELINE CR IS ABOUT 2.0. NO HX OF ANY KIDNEY OR BLADDER SURGERIES HEMATURIA DYSURIA OR FREQUENCY NOTED Past Medical History Cardiovascular: CAD (NSTEMI), CHF (diastolic), HTN, Syncope (associated with NSTEMI and sustained VT), Hyperlipidemia Pulmonary: No pertinent hx CENTRAL NERVOUS SYSTEM: Other (No pertinent history) GI: No pertinent hx Heme/Onc: No pertinent hx Hepatobiliary: No pertinent hx Psych: No pertinent hx Musculoskeletal: Osteoarthritis, Other (traumatic fall 11/2015 associated with very brief cardiac arrest) Infectious disease: No pertinent hx ENT: No pertinent hx Renal/: Chronic renal insuff (CKD3) Endocrine: No pertinent hx Dermatology: No pertinent hx Past Surgical History Past Surgical History: Arthroscopy (left meniscus repair), Hernia Repair ( right inguinal), Other (PCI/ORQUIDEA to OM1 and LCx 11/2015) Social History No ALCOHOL: occassional Drugs: None Lives: Alone Current Problem List Problem List Problems Medical Problems: (1) Acute renal failure Status: Acute (2) Elevated troponin Status: Acute (3) Pre-syncope Status: Acute (4) Syncope Status: Acute Current Medications Current Medications Current Medications Fentanyl Citrate 25 mcg 25 mcg PRN Q15MIN PRN IV pain greater than 3 for 3 dose Last administered on 11/14/16 13:40; Start 11/14/16 at 13:30 Sodium Chloride (Iv Sodium Chloride 0.9% 500ml Bag) 500 ml @ 500 mls/hr 1X ONCE IV Last administered on 11/14/16 16:02; Start 11/14/16 at 14:00; Stop at 14:59; Status DC Ondansetron HCl (Zofran) 4 mg PRN Q8HRS PRN IV NAUSEA/VOMITING; Start 11/14/16 at 15:15; Stop 11/15/16 at 15:14 Fentanyl Citrate (Fentanyl 2ml Vial) 50 mcg PRN Q2HR PRN IV PAIN; Start at 15:15; Stop 11/15/16 at 15:14 Acetaminophen (Tylenol) 650 mg PRN Q4HRS PRN PO FEVER; Start 11/14/16 at 15:15 ; Stop 11/15/16 at 15:14 Clopidogrel Bisulfate (Plavix) 75 mg DAILYWBKFT PO Last administered on 08:25; Start 11/15/16 at 08:00 Metoprolol Tartrate (Lopressor) 12.5 mg BID PO Last administered on 11/15/16 08:27; Start 11/14/16 at 21:00; Stop 11/15/16 at 09:26; Status DC Hydralazine HCl 10 mg 10 mg PRN Q4HRS PRN IVP ELEVATED BP, SEE COMMENTS; Start 11/14/16 at 16:30 Amiodarone HCl 150 mg/Dextrose 103 ml @ 618 mls/hr 1X ONCE IV Last administered on 11/14/16 18:54; Start 11/14/16 at 19:00; Stop 11/14/16 at 19:09 ; Status DC Amiodarone HCl/ Dextrose (Cordarone) 518 ml @ 0 mls/hr CONT PRN IV SEE I/O RECORD; Start 11/14/16 at 19:00 Adenosine (Adenocard) 12 mg 1X ONCE IV Last administered on 11/14/16 18:40; Start 11/14/16 at 18:45; Stop 11/14/16 at 18:46; Status DC Adenosine (Adenocard) 12 mg 1X ONCE IV ; Start 11/14/16 at 18:45; Stop at 18:46; Status DC Metoprolol Tartrate (Lopressor) 25 mg BID PO ; Start 11/15/16 at 21:00 Aspirin 81 mg 81 mg DAILYWBKFT PO Last administered on 11/15/16 10:22; Start 11/15/16 at 09:15 Heparin Sodium/ Dextrose 500 ml @ 0 mls/hr CONT PRN IV SEE I/O RECORD; Start at 09:15 Heparin Sodium (Porcine) 2,100 unit PRN Q6HRS PRN IV FOR UFH LEVEL LESS THAN 0.2; Start 11/15/16 at 09:15 Metoprolol Tartrate (Lopressor) 12.5 mg 1X ONCE PO Last administered on t 10:22; Start 11/15/16 at 09:45; Stop 11/15/16 at 09:46; Status DC Heparin Sodium (Porcine) 4,000 unit 1X ONCE IV ; Start 11/15/16 at 09:45; Stop 11/15/16 at 09:46; Status DC Active Scripts Active Reported Clopidogrel (Clopidogrel Bisulfate) 75 Mg Tablet 1 Tab PO DAILY Atorvastatin Calcium 40 Mg Tablet 1 Tab PO QHS Lisinopril-Hctz 20-12.5 Mg Tab (Lisinopril/Hydrochlorothiazide) 1 Each Tablet 1 Tab PO DAILY Nifedipine Er (Nifedipine) 60 Mg Tab.er.24 1 Tab PO DAILY Allergies Allergies: Coded Allergies: No Known Drug Allergies (Unverified , 11/14/16) ROS General: YES: Fatigue, Malaise PSYCHOLOGICAL ROS: YES: Anxiety Eyes: Yes Decreased vision HEENT: YES: Heacaches Respiratory: YES: Cough Cardiovascular: yes Palpitations Gastrointestinal: Yes Constipation Genitourinary: YES Other (NOCTURIA) Musculoskeletal: Yes Muscular Weakness Neurological: Yes Weakness Skin: Yes Dry Skin Physical Exam General: Alert, Oriented X3, Cooperative, No acute distress HEENT: Atraumatic, PERRLA, EOMI, Mucous membr. moist/pink Lungs: Clear to auscultation, Normal air movement Heart: Regular rate, Normal S1, Normal S2 Abdomen: Normal bowel sounds Extremities: No clubbing, No cyanosis Skin: No breakdown Neuro: Normal speech, Cranial nerves 3-12 NL Psych/Mental Status: Mental status NL, Mood NL MUSCULOSKELETAL: No deformity Vitals VITALS Vital Signs Date Time Temp Pulse Resp B/P Pulse Ox O2 Delivery O2 Flow Rate FiO2 11/15/16 10:22 68 158/74 11/15/16 07:00 98.1 22 99 Nasal Cannula 98.1 11/15/16 02:48 2.0 Labs Labs Laboratory Tests Test 11/14/16 13:13 11/14/16 17:30 11/14/16 19:45 11/15/16 03:12 White Blood Count 6.1x10^3/uL (4.0-11.0) Red Blood Count 4.54x10^6/uL (4.30-5.70) Hemoglobin 13.4g/dL (13.0-17.5) Hematocrit 40.3% (39.0-53.0) Mean Corpuscular Volume 89fL (79-100) Mean Corpuscular Hemoglobin 30pg (25-35) Mean Corpuscular Hemoglobin Concent 33g/dL (31-37) Red Cell Distribution Width 14.5% (11.5-14.5) Platelet Count 173x10^3/uL (140-400) Neutrophils (%) (Auto) 62% (31-73) Lymphocytes (%) (Auto) 24% (24-48) Monocytes (%) (Auto) 11% (0-9) Eosinophils (%) (Auto) 2% (0-3) Basophils (%) (Auto) 1% (0-3) Neutrophils # (Auto) 3.8x10^3uL (1.8-7.7) Lymphocytes # (Auto) 1.5x10^3/uL (1.0-4.8) Monocytes # (Auto) 0.7x10^3/uL (0.0-1.1) Eosinophils # (Auto) 0.1x10^3/uL (0.0-0.7) Basophils # (Auto) 0.1x10^3/uL (0.0-0.2) Sodium Level 140mmol/L (136-145) Potassium Level 4.1mmol/L (3.5-5.1) Chloride Level 104mmol/L (98-107) Carbon Dioxide Level 20mmol/L (21-32) Anion Gap 16 (6-14) Blood Urea Nitrogen 56mg/dL (8-26) Creatinine 2.4mg/dL (0.7-1.3) Estimated GFR (Cockcroft-Gault) 25.7 BUN/Creatinine Ratio 23 (6-20) Glucose Level 136mg/dL (70-99) Calcium Level 9.0mg/dL (8.5-10.1) Magnesium Level 2.2mg/dL (1.8-2.4) Total Bilirubin 0.5mg/dL (0.2-1.0) Aspartate Amino Transf (AST/SGOT) 21U/L (15-37) Alanine Aminotransferase (ALT/SGPT) 26U/L (16-63) Alkaline Phosphatase 78U/L (46-116) Creatine Kinase 261U/L (39-308) Troponin I Quantitative 0.065ng/mL (0.000-0.055) 0.099ng/mL (0.000-0.055) 0.256ng/mL (0.000-0.055) UX-Ghx-R-Type Natriuretic Peptide 2436pg/mL (0-449) Total Protein 6.7g/dL (6.4-8.2) Albumin 3.6g/dL (3.4-5.0) Albumin/Globulin Ratio 1.2 (1.0-1.7) Thyroid Stimulating Hormone (TSH) 1.430uIU/mL (0.358-3.74) Urine Collection Type Unknown Urine Color Yellow Urine Clarity Clear Urine pH 6.0 Urine Specific [place] 1.015 Urine Protein 100mg/dL (NEG-TRACE) Urine Glucose (UA) Negativemg/dL (NEG) Urine Ketones (Stick) Negativemg/dL (NEG) Urine Blood Small (NEG) Urine Nitrite Negative (NEG) Urine Bilirubin Negative (NEG) Urine Urobilinogen Dipstick 0.2mg/dL (0.2 mg/dL) Urine Leukocyte Esterase Moderate (NEG) Urine RBC 1-2/HPF (0-2) Urine WBC 20-40/HPF (0-4) Urine Bacteria 0/HPF (0-FEW) Triglycerides Level 76mg/dL (0-150) Cholesterol Level 121mg/dL (0-200) LDL Cholesterol, Calculated 52mg/dL (0-100) VLDL Cholesterol, Calculated 15mg/dL (0-40) HDL Cholesterol 54mg/dL (40-60) Cholesterol/HDL Ratio 2.2 Laboratory Tests Test 11/14/16 13:13 11/14/16 17:30 11/14/16 19:45 11/15/16 03:12 White Blood Count 6.1x10^3/uL (4.0-11.0) Red Blood Count 4.54x10^6/uL (4.30-5.70) Hemoglobin 13.4g/dL (13.0-17.5) Hematocrit 40.3% (39.0-53.0) Mean Corpuscular Volume 89fL (79-100) Mean Corpuscular Hemoglobin 30pg (25-35) Mean Corpuscular Hemoglobin Concent 33g/dL (31-37) Red Cell Distribution Width 14.5% (11.5-14.5) Platelet Count 173x10^3/uL (140-400) Neutrophils (%) (Auto) 62% (31-73) Lymphocytes (%) (Auto) 24% (24-48) Monocytes (%) (Auto) 11% (0-9) Eosinophils (%) (Auto) 2% (0-3) Basophils (%) (Auto) 1% (0-3) Neutrophils # (Auto) 3.8x10^3uL (1.8-7.7) Lymphocytes # (Auto) 1.5x10^3/uL (1.0-4.8) Monocytes # (Auto) 0.7x10^3/uL (0.0-1.1) Eosinophils # (Auto) 0.1x10^3/uL (0.0-0.7) Basophils # (Auto) 0.1x10^3/uL (0.0-0.2) Sodium Level 140mmol/L (136-145) Potassium Level 4.1mmol/L (3.5-5.1) Chloride Level 104mmol/L (98-107) Carbon Dioxide Level 20mmol/L (21-32) Anion Gap 16 (6-14) Blood Urea Nitrogen 56mg/dL (8-26) Creatinine 2.4mg/dL (0.7-1.3) Estimated GFR (Cockcroft-Gault) 25.7 BUN/Creatinine Ratio 23 (6-20) Glucose Level 136mg/dL (70-99) Calcium Level 9.0mg/dL (8.5-10.1) Magnesium Level 2.2mg/dL (1.8-2.4) Total Bilirubin 0.5mg/dL (0.2-1.0) Aspartate Amino Transf (AST/SGOT) 21U/L (15-37) Alanine Aminotransferase (ALT/SGPT) 26U/L (16-63) Alkaline Phosphatase 78U/L (46-116) Creatine Kinase 261U/L (39-308) Troponin I Quantitative 0.065ng/mL (0.000-0.055) 0.099ng/mL (0.000-0.055) 0.256ng/mL (0.000-0.055) HJ-Vbs-B-Type Natriuretic Peptide 2436pg/mL (0-449) Total Protein 6.7g/dL (6.4-8.2) Albumin 3.6g/dL (3.4-5.0) Albumin/Globulin Ratio 1.2 (1.0-1.7) Thyroid Stimulating Hormone (TSH) 1.430uIU/mL (0.358-3.74) Urine Collection Type Unknown Urine Color Yellow Urine Clarity Clear Urine pH 6.0 Urine Specific [place] 1.015 Urine Protein 100mg/dL (NEG-TRACE) Urine Glucose (UA) Negativemg/dL (NEG) Urine Ketones (Stick) Negativemg/dL (NEG) Urine Blood Small (NEG) Urine Nitrite Negative (NEG) Urine Bilirubin Negative (NEG) Urine Urobilinogen Dipstick 0.2mg/dL (0.2 mg/dL) Urine Leukocyte Esterase Moderate (NEG) Urine RBC 1-2/HPF (0-2) Urine WBC 20-40/HPF (0-4) Urine Bacteria 0/HPF (0-FEW) Triglycerides Level 76mg/dL (0-150) Cholesterol Level 121mg/dL (0-200) LDL Cholesterol, Calculated 52mg/dL (0-100) VLDL Cholesterol, Calculated 15mg/dL (0-40) HDL Cholesterol 54mg/dL (40-60) Cholesterol/HDL Ratio 2.2 Assessment/Plan Assessment/Plan IMP SYNCOPE CARDIAC ARRHYTHMIA CKD PROB STAGE 3 FROM NEPHROSCLEROSIS HX OF CAD HTN PLAN IVF'S CR AT BASELINE HEART CATH PROB TOMORROW RISK OF CONTRAST NEPHROPATHY D/W PT AND SON WILL FOLLOW ZACH PATTERSON MD Nov 15, 2016 10:57
[2016-11-15 11:18] VITALS: BP 119/57
[2016-11-15] MEDS: IV NORMAL SALINE 1000ML BAG 1,000 ML IV SCH (11:29)
[2016-11-15 11:46] LABS: CALCIUM 9.1 mg/dL (8.5-10.1); CREATININE 0.8 mg/dL (0.7-1.3); GFR 91.4
[2016-11-15 14:47] VITALS: BP 134/70
--- NOTE | 2016-11-15 16:17 | CARD ---
APPROVED REPORT EXAM: Two-dimensional and M-mode echocardiogram with Doppler and color Doppler. Other Information Quality : GoodHR: 79bpm Rhythm : PVC's INDICATION Pre-syncope RISK FACTORS Hypertension Hyperlipidemia 2D DIMENSIONS RVDd2.3 (2.9-3.5cm)Left Atrium(2D)0.9 (1.6-4.0cm) IVSd1.3 (0.7-1.1cm)Aortic Root(2D)2.6 (2.0-3.7cm) LVDd4.3 (3.9-5.9cm)LVOT Diameter2.4 (1.8-2.4cm) PWd1.3 (0.7-1.1cm)LVDs2.8 (2.5-4.0cm) FS (%) 44.5 %SV62.5 ml Mitral Valve MV E Agwsmjxf40.8cm/sMV E Peak Gr.4mmHg MV DECEL [id number] A Krrkyvqr02.9cm/s MV E Mean Gr.2mmHgE/A Ratio1.3 MV A [id number] TDI Medial E' P. V5.61cm/sE/Medial E'15.7 Tricuspid Valve TR P. Taxphqvq696lr/sRAP [id number] TR Peak Gr.43mmHg LEFT VENTRICLE The left ventricle is normal size. There is mild concentric left ventricular hypertrophy. The left ve ntricular systolic function is normal and the ejection fraction is within normal range. The Ejection Fraction is 55-60%. There is normal LV segmental wall motion. The left ventricular diastolic function and filling is normal for age. RIGHT VENTRICLE The right ventricle is normal size. There is normal right ventricular wall thickness. The right ventr icular systolic function is normal. ATRIA The left atrium is mildly dilated. The right atrium size is normal. The interatrial septum is intact with no evidence for an atrial septal defect or patent foramen ovale as noted on 2-D or Doppler imagi ng. AORTIC VALVE The aortic valve is moderately sclerotic. The aortic valve is trileaflet. Doppler and Color Flow reve aled no significant aortic regurgitation. There is no significant aortic valvular stenosis. MITRAL VALVE The mitral valve leaflets are thickened. There is no evidence of mitral valve prolapse. There is no m itral valve stenosis. Doppler and Color Flow revealed mild mitral regurgitation. TRICUSPID VALVE Doppler and Color Flow revealed mild to moderate tricuspid regurgitation. The pulmonary artery systol ic pressure is estimated at 44 mmHg. PULMONIC VALVE The pulmonary valve is normal in structure and function. GREAT VESSELS The aortic root is normal in size. The ascending aorta is normal in size. The pulmonary artery is nor mal. The IVC is normal in size and collapses >50% with inspiration. PERICARDIAL EFFUSION There is no evidence of significant pericardial effusion. Critical Notification Critical Value: No <Conclusion> The left ventricle is normal size. The left ventricular systolic function is normal and the ejection fraction is within normal range. The Ejection Fraction is 55-60%. There is mild concentric left ventricular hypertrophy. There is no significant aortic valvular stenosis. Doppler and Color Flow revealed no significant aortic regurgitation. Doppler and Color Flow revealed mild mitral regurgitation. Doppler and Color Flow revealed mild to moderate tricuspid regurgitation. The pulmonary artery systolic pressure is estimated at 44 mmHg.
--- NOTE | 2016-11-15 17:11 | PDOC ---
GENERAL General: seen this am. patient minimizes events of yesterday but strips reviewed and most consistent with V-tach and syncope reported with same by nursing. chest clear and heart regular and on amiodarone drip this am. cardiology help appreciated and agree with need for cath. Problems: VITAL SIGNS Vital Signs: Vital Signs Date Time Temp Pulse Resp B/P Pulse Ox O2 Delivery O2 Flow Rate FiO2 11/15/16 14:47 98.0 65 18 134/70 98 Room Air 98.0 11/15/16 08:00 2.0 I & O I & O Intake and Output 11/15/16 07:00 Intake Total 250 ml Output Total 350 ml Balance -100 ml Intake Oral 250 ml Output Urine Total 350 ml ALLERGIES Allergies: Allergies Coded Allergies Type Severity Reaction Last Updated Verified No Known Drug Allergies 11/14/16 No MEDS Medications: Current Medications Medications (Trade) Dose Ordered Sig/Mamta Start Time Stop Time Status Last Admin Dose Admin Acetaminophen (Tylenol) 650 mg PRN Q4HRS PRN 11/14/16 15:15 11/15/16 15:14 DC Adenosine (Adenocard) 12 mg 1X ONCE 11/14/16 18:45 11/14/16 18:46 DC Amiodarone HCl (Cordarone) 200 mg DAILY 11/16/16 09:00 Amiodarone HCl 150 mg/Dextrose 103 ml @ 618 mls/hr 1X ONCE 11/14/16 19:00 11/14/16 19:09 DC 11/14/16 18:54 618 MLS/HR Amiodarone HCl/ Dextrose (Cordarone) 518 ml @ 0 mls/hr CONT PRN 11/14/16 19:00 Aspirin 81 mg 81 mg [id number] 11/15/16 09:15 11/15/16 10:22 81 MG Clopidogrel Bisulfate (Plavix) 75 mg DAILYWBKFT 11/15/16 08:00 11/15/16 08:25 75 MG Fentanyl Citrate (Fentanyl 2ml Vial) 50 mcg PRN Q2HR PRN 11/14/16 15:15 11/15/16 15:14 DC Fentanyl Citrate 25 mcg 25 mcg PRN Q15MIN PRN 11/14/16 13:30 11/14/16 13:40 25 MCG Heparin Sodium (Porcine) 2,100 unit PRN Q6HRS PRN 11/15/16 09:15 Heparin Sodium (Porcine) 4000 unit 4,000 unit 1X ONCE 11/15/16 09:45 11/15/16 09:46 DC 11/15/16 11:21 4,000 UNIT Heparin Sodium/ Dextrose 500 ml @ 0 mls/hr CONT PRN 11/15/16 09:15 11/15/16 11:18 19.9 MLS/HR Hydralazine HCl 10 mg 10 mg PRN Q4HRS PRN 11/14/16 16:30 Metoprolol Tartrate (Lopressor) 12.5 mg 1X ONCE 11/15/16 09:45 11/15/16 09:46 DC 11/15/16 10:22 12.5 MG Ondansetron HCl (Zofran) 4 mg PRN Q8HRS PRN 11/14/16 15:15 11/15/16 15:14 DC Sodium Chloride (Iv Sodium Chloride 0.9% 500ml Bag) 500 ml @ 500 mls/hr 1X ONCE 11/14/16 14:00 11/14/16 14:59 DC 11/14/16 16:02 500 MLS/HR Sodium Chloride (Iv Sodium Chloride 0.9% 1000ml Bag) 1,000 ml @ 75 mls/hr [id number] 11/15/16 11:15 11/15/16 11:29 75 MLS/HR LAB Lab: Laboratory Tests Test 11/14/16 17:30 11/14/16 19:45 11/15/16 03:12 11/15/16 09:45 Urine Collection Type Unknown Urine Color Yellow Urine Clarity Clear Urine pH 6.0 Urine Specific Roland 1.015 Urine Protein 100mg/dL (NEG-TRACE) Urine Glucose (UA) Negativemg/dL (NEG) Urine Ketones (Stick) Negativemg/dL (NEG) Urine Blood Small (NEG) Urine Nitrite Negative (NEG) Urine Bilirubin Negative (NEG) Urine Urobilinogen Dipstick 0.2mg/dL (0.2 mg/dL) Urine Leukocyte Esterase Moderate (NEG) Urine RBC 1-2/HPF (0-2) Urine WBC 20-40/HPF (0-4) Urine Bacteria 0/HPF (0-FEW) Troponin I Quantitative 0.099ng/mL (0.000-0.055) 0.256ng/mL (0.000-0.055) < 0.017ng/mL (0.000-0.055) Triglycerides Level 76mg/dL (0-150) Cholesterol Level 121mg/dL (0-200) LDL Cholesterol, Calculated 52mg/dL (0-100) VLDL Cholesterol, Calculated 15mg/dL (0-40) HDL Cholesterol 54mg/dL (40-60) Cholesterol/HDL Ratio 2.2 Sodium Level 142mmol/L (136-145) Potassium Level 4.0mmol/L (3.5-5.1) Chloride Level 106mmol/L (98-107) Carbon Dioxide Level 27mmol/L (21-32) Anion Gap 9 (6-14) Blood Urea Nitrogen 17mg/dL (8-26) Creatinine 0.8mg/dL (0.7-1.3) Estimated GFR (Cockcroft-Gault) 91.4 Glucose Level 199mg/dL (70-99) Calcium Level 9.1mg/dL (8.5-10.1) Magnesium Level 2.1mg/dL (1.8-2.4) LAKHWINDER AMAYA MD Nov 15, 2016 17:11
[2016-11-15] MEDS ORDERED: ACETAMINOPHEN 325 MG TABLET. PO PRN ×3 (17:30→17:45)
[2016-11-15] MEDS: AMIODARONE HCL 200 MG TABLET. PO SCH (17:56)
[2016-11-15 19:20] VITALS: BP 135/69
[2016-11-15 23:25] VITALS: BP 168/87
[2016-11-16] VITALS (13 sets, daily range): BP systolic 97–183; BP diastolic 6–88
[2016-11-16] MEDS: IV NORMAL SALINE 1000ML BAG 1,000 ML IV SCH ×2 (00:30→13:55)
[2016-11-16] MEDS ORDERED: ACETAMINOPHEN 325 MG TABLET. PO PRN (04:53)
[2016-11-16 05:36] LABS: HEMATOCRIT 42.6 % (39.0-53.0); HEMOGLOBIN 14.1 g/dL (13.0-17.5); RED BLOOD COUNT 4.74 x10^6/uL (4.30-5.70); RED CELL DISTRIBUTION WIDTH 14.4 % (11.5-14.5); WHITE BLOOD COUNT 7.5 x10^3/uL (4.0-11.0)
[2016-11-16 05:57] LABS: CALCIUM 8.8 mg/dL (8.5-10.1); CREATININE 2.2 mg/dL (0.7-1.3); GFR 28.5; POTASSIUM 3.9 mmol/L (3.5-5.1)
[2016-11-16] MEDS ORDERED: AMIODARONE HCL 200 MG TABLET. PO SCH (09:00)
[2016-11-16] MEDS: METOPROLOL TART IMMED RELEASE 25 MG TABLET PO SCH (09:23)
[2016-11-16] MEDS: CLOPIDOGREL BISULFATE 75 MG TABLET PO SCH (09:24)
[2016-11-16] MEDS: ASPIRIN CHEWABLE 81 MG TABLET. PO SCH (09:24)
[2016-11-16] MEDS: AMIODARONE HCL 200 MG TABLET. PO SCH (09:25)
--- NOTE | 2016-11-16 11:23 | PDOC ---
Renal-Progress Notes Subjective Notes Notes NO COMPLAINTS History of Present Illness Hx of present illness STABLE Vitals Vitals Vital Signs Date Time Temp Pulse Resp B/P Pulse Ox O2 Delivery O2 Flow Rate FiO2 11/16/16 09:25 81 182/86 11/16/16 07:00 98.4 18 97 Nasal Cannula 2.0 98.4 Weight Weight [ ] I.O. Intake and Output Intake and Output 11/16/16 07:00 Intake Total 2594 ml Output Total 1250 ml Balance 1344 ml Intake Oral 980 ml IV Total 1614 ml Output Urine Total 1250 ml # Voids 3 Labs Labs Laboratory Tests Test 11/15/16 17:35 11/15/16 23:32 11/16/16 04:00 Heparin Anti-Xa Act, Unfractionated 0.37IU/mL (0.30-0.70) 0.43IU/mL (0.30-0.70) 0.37IU/mL (0.30-0.70) White Blood Count 7.5x10^3/uL (4.0-11.0) Red Blood Count 4.74x10^6/uL (4.30-5.70) Hemoglobin 14.1g/dL (13.0-17.5) Hematocrit 42.6% (39.0-53.0) Mean Corpuscular Volume 90fL (79-100) Mean Corpuscular Hemoglobin 30pg (25-35) Mean Corpuscular Hemoglobin Concent 33g/dL (31-37) Red Cell Distribution Width 14.4% (11.5-14.5) Platelet Count 160x10^3/uL (140-400) Sodium Level 140mmol/L (136-145) Potassium Level 3.9mmol/L (3.5-5.1) Chloride Level 104mmol/L (98-107) Carbon Dioxide Level 24mmol/L (21-32) Anion Gap 12 (6-14) Blood Urea Nitrogen 49mg/dL (8-26) Creatinine 2.2mg/dL (0.7-1.3) Estimated GFR (Cockcroft-Gault) 28.5 Glucose Level 95mg/dL (70-99) Calcium Level 8.8mg/dL (8.5-10.1) Review of Systems Constitutional: yes: alert, oriented Ears/Nose/Throat: Yes: no symptom reported Pulmonary: Yes no symptom reported Cardiovascular: Yes no symptom reported Gastrointestional: Yes: no symptom reported Genitourinary: Yes: no symptom reported Musculoskeletal: Yes: no symptom reported Physical Exam General Appearance: no apparent distress Skin: warm Respiratory: bilateral CTA Heart: S1S2 Abdomen: soft, bowel sounds present Neurology: alert, oriented, follow commands Musculoskeletal: Other (traumatic fall 11/2015 associated with very brief cardiac arrest) Assessment Assessment IMP CKD STAGE 3 WITH CR STABLE AT 2.2 CHEST PAIN ARRHYTHMIA SYNCOPE PLAN CONT IVF'S HEART CATH THIS AFTERNOON ZACH PATTERSON MD Nov 16, 2016 11:23
[2016-11-16] MEDS: hydrALAZINE 20 MG/ML VIAL. IVP PRN (12:50)
[2016-11-16] MEDS ORDERED: VERAPAMIL 5 MG/2 ML VIAL. ONE (13:49)
[2016-11-16] MEDS ORDERED: FENTANYL PF 100 MCG/2 ML VIAL. ONE ×2 (13:49→13:59)
[2016-11-16] MEDS ORDERED: MIDAZOLAM HCL/PF 2 MG/2 ML VIAL. ONE ×2 (13:49→13:59)
[2016-11-16] MEDS ORDERED: HEPARIN for IV BOLUS 10,000 UNIT/10 ML VIAL. ONE (13:49)
[2016-11-16] MEDS ORDERED: MIDAZOLAM HCL/PF 2 MG/2 ML VIAL. IV ONE (14:15)
[2016-11-16] MEDS ORDERED: IODIXANOL 320 MG/ML 100 ML VIAL. IART ONE (14:15)
[2016-11-16] MEDS ORDERED: VERAPAMIL 5 MG/2 ML VIAL. IART ONE (14:15)
[2016-11-16] MEDS ORDERED: CONTRAST GIVEN MC PRN (14:15)
[2016-11-16] MEDS ORDERED: LIDOCAINE 2% 20 ML VIAL. IJ ONE (14:15)
[2016-11-16] MEDS ORDERED: FENTANYL PF 100 MCG/2 ML VIAL. IV ONE (14:15)
[2016-11-16] MEDS ORDERED: NITROGLYCERIN 200 MCG/2 ML SYRINGE FOR CATH/VASC LAB. IART ONE (14:15)
[2016-11-16] MEDS ORDERED: HEPARIN for IV BOLUS 10,000 UNIT/10 ML VIAL. IART ONE (14:15)
[2016-11-16] MEDS ORDERED: ADENOSINE 90 MG/30 ML VIAL. IV ONE (14:19)
[2016-11-16] MEDS ORDERED: ATROPINE 0.5 MG/5 ML DISP.SYRIN. ONE (14:32)
[2016-11-16] MEDS ORDERED: ADENOSINE 90 MG in IV NORMAL SALINE 50ML 90 ML IV ONE (14:45)
--- NOTE | 2016-11-16 14:49 | PDOC ---
GENERAL General: vss and afebrile. awake and alert without complaints. son in attendance. black eyes bilaterally this am. has k-pad on right posterior shoulder with full rom right shoulder without pain. for heart cath this pm. no further v-tach since on amiodarone. creatinine at 2.2 which is his baseline. plans to follow heart cath. Problems: VITAL SIGNS Vital Signs: Vital Signs Date Time Temp Pulse Resp B/P Pulse Ox O2 Delivery O2 Flow Rate FiO2 11/16/16 12:50 78 171/80 11/16/16 11:00 98.6 18 98 Nasal Cannula 2.0 98.6 I & O I & O Intake and Output 11/16/16 07:00 Intake Total 2594 ml Output Total 1250 ml Balance 1344 ml Intake Oral 980 ml IV Total 1614 ml Output Urine Total 1250 ml # Voids 3 ALLERGIES Allergies: Allergies Coded Allergies Type Severity Reaction Last Updated Verified No Known Drug Allergies 11/14/16 No MEDS Medications: Current Medications Medications (Trade) Dose Ordered Sig/Mamta Start Time Stop Time Status Last Admin Dose Admin Acetaminophen (Tylenol) 650 mg PRN Q4HRS PRN 11/16/16 04:53 Adenosine (Adenocard) 12 mg 1X ONCE 11/14/16 18:45 11/14/16 18:46 DC Adenosine (Adenoscan) 90 mg STK-MED ONCE 11/16/16 14:19 11/16/16 14:20 DC Adenosine/Sodium Chloride (Adenoscan/Iv Sodium Chloride 0.9% 50ml) 120 ml @ 200 mls/hr 1X ONCE 11/16/16 14:45 11/16/16 15:20 Amiodarone HCl (Cordarone) 200 mg DAILY 11/15/16 17:45 11/16/16 09:25 200 MG Amiodarone HCl 150 mg/Dextrose 103 ml @ 618 mls/hr 1X ONCE 11/14/16 19:00 11/14/16 19:09 DC 11/14/16 18:54 618 MLS/HR Amiodarone HCl/ Dextrose (Cordarone) 518 ml @ 0 mls/hr CONT PRN 11/14/16 19:00 11/15/16 18:09 DC 11/14/16 19:04 33 MLS/HR Aspirin (Children'S Aspirin) 81 mg DAILYWBKFT 11/16/16 08:00 11/16/16 09:24 81 MG Aspirin 81 mg 81 mg DAILYWBKFT 11/15/16 09:15 11/16/16 04:53 DC 11/15/16 10:22 81 MG Atropine Sulfate 0.5 mg 0.5 mg STK-MED ONCE 11/16/16 14:32 11/16/16 14:33 DC Clopidogrel Bisulfate (Plavix) 75 mg DAILYWBKFT 11/15/16 08:00 11/16/16 09:24 75 MG Fentanyl Citrate (Fentanyl 2ml Vial) 100 mcg 1X ONCE 11/16/16 14:15 11/16/16 14:16 DC Fentanyl Citrate 25 mcg 25 mcg PRN Q15MIN PRN 11/14/16 13:30 11/16/16 04:55 DC 11/14/16 13:40 25 MCG Heparin Sodium (Porcine) 2,500 unit 1X ONCE 11/16/16 14:15 11/16/16 14:16 DC Heparin Sodium (Porcine) 4000 unit 4,000 unit 1X ONCE 11/15/16 09:45 11/15/16 09:46 DC 11/15/16 11:21 4,000 UNIT Heparin Sodium/ Dextrose 500 ml @ 0 mls/hr CONT PRN 11/15/16 09:15 11/15/16 11:18 19.9 MLS/HR Heparin Sodium/ Sodium Chloride 1,000 unit 1X ONCE 11/16/16 14:15 11/16/16 14:16 DC Hydralazine HCl 10 mg 10 mg PRN Q4HRS PRN 11/14/16 16:30 11/16/16 12:50 10 MG Info (Do NOT chart on this entry -- for MONITORING) 1 each PRN DAILY PRN 11/16/16 14:15 11/18/16 14:14 Iodixanol (Visipaque 320) 100 ml 1X ONCE 11/16/16 14:15 11/16/16 14:16 DC Lidocaine HCl 20 ml 1X ONCE 11/16/16 14:15 11/16/16 14:16 DC Metoprolol Tartrate (Lopressor) 12.5 mg 1X ONCE 11/15/16 09:45 11/15/16 09:46 DC 11/15/16 10:22 12.5 MG Midazolam HCl (Versed) 2 mg 1X ONCE 11/16/16 14:15 11/16/16 14:16 DC Nitroglycerin (Nitroglycerin) 200 mcg 1X ONCE 11/16/16 14:15 11/16/16 14:16 DC Ondansetron HCl (Zofran) 4 mg PRN Q8HRS PRN 11/14/16 15:15 11/15/16 15:14 DC Sodium Chloride (Iv Sodium Chloride 0.9% 500ml Bag) 500 ml @ 500 mls/hr 1X ONCE 11/14/16 14:00 11/14/16 14:59 DC 11/14/16 16:02 500 MLS/HR Sodium Chloride (Iv Sodium Chloride 0.9% 1000ml Bag) 1,000 ml @ 75 mls/hr [id number] 11/15/16 11:15 11/16/16 00:30 75 MLS/HR Verapamil HCl (Verapamil) 2.5 mg 1X ONCE 11/16/16 14:15 11/16/16 14:16 DC LAB Lab: Laboratory Tests Test 11/15/16 17:35 11/15/16 23:32 11/16/16 04:00 11/16/16 14:13 Heparin Anti-Xa Act, Unfractionated 0.37IU/mL (0.30-0.70) 0.43IU/mL (0.30-0.70) 0.37IU/mL (0.30-0.70) White Blood Count 7.5x10^3/uL (4.0-11.0) Red Blood Count 4.74x10^6/uL (4.30-5.70) Hemoglobin 14.1g/dL (13.0-17.5) Hematocrit 42.6% (39.0-53.0) Mean Corpuscular Volume 90fL (79-100) Mean Corpuscular Hemoglobin 30pg (25-35) Mean Corpuscular Hemoglobin Concent 33g/dL (31-37) Red Cell Distribution Width 14.4% (11.5-14.5) Platelet Count 160x10^3/uL (140-400) Sodium Level 140mmol/L (136-145) Potassium Level 3.9mmol/L (3.5-5.1) Chloride Level 104mmol/L (98-107) Carbon Dioxide Level 24mmol/L (21-32) Anion Gap 12 (6-14) Blood Urea Nitrogen 49mg/dL (8-26) Creatinine 2.2mg/dL (0.7-1.3) Estimated GFR (Cockcroft-Gault) 28.5 Glucose Level 95mg/dL (70-99) Calcium Level 8.8mg/dL (8.5-10.1) Activated Clotting Time 185sec (92-181) APPL,LAKHWINDER Trevino MD Nov 16, 2016 14:49
[2016-11-16] MEDS ORDERED: METOPROLOL TART IMMED RELEASE 25 MG TABLET PO ONE (16:00)
--- NOTE | 2016-11-16 17:35 | CARD ---
APPROVED REPORT Procedure(s) performed: Right transradial approach Left Heart Catheterization IFR / FFR RCA FFR CIRCUMFLEX HISTORY previous MT: previous CHF, previous PCI (The PCI date was 11/23/14), hypertension, dyslipidemia. INDICATION The indication(s) include : unstable angina , arrhythmia, VT. CASE TECHNIQUE During this case, Fluoroscopy and low osmolar contrast were used for imaging. PROCEDURE NARRATIVE The patient was brought electively to the cardiac catheterization lab. A timeout was performed confi rming the patient's name, date of , procedure, and site of procedure. All necessary personnel w ere wearing the appropriate protective equipment and radiation monitor devices. After explaining the risks and benefits of the procedure and alternatives, informed consent was obtained. (See nursing no lakeisha for medications administered). The right wrist was sterilely prepped and draped in the usual fas hion. The right wrist was infiltrated with 1 mL of 2% lidocaine for subcutaneous anesthesia. A 6 Fr ench Terumo glide sheath was inserted into the right radial artery without difficulty. Right and lef t coronary angiography was performed using a 6Fr TIG 4.0 catheter. HEMODYNAMICS: LVEDP 20 mm Hg No gradient on LV to aortic pullback. LEFT VENTRICULOGRAM: Deferred due to renal insufficiency. CORONARY ANGIOGRAPHY: LM is a large caliber vessel with normal angiographic appearance. LAD is a large caliber vessel with mild diffuse luminal irregularities. D1 is a small to moderate caliber vessel with normal angiographic apeparance. LCx is a moderate caliber non-dominant vessel with patent proximal stents, the distal vessel AV LCx i s small in caliber. OM1 is a moderate caliber vessel with patent proximal stent, followed by a proximal 40% stenosis. RCA is a large caliber dominant vessel with a proximal 40%, mid eccentric 50% calcified lesion. RPDA and RPL are moderate caliber vessels with normal angiographic appearance. INTERVENTIONAL TECHNIQUE: The due to the patient's presentation with ventricular tachycardia and moderate caliber stenoses in t he RCA and left circumflex and physiologic ischemic study was performed. Heparin weight-based bolus d osing was used to achieve and maintain an ACT greater than 200. Through a 6 Indian JR4 guide catheter a 0.014 inch pressure wire was advanced to the distal RCA and an initial IFR measurement was perform ed which was positive at 0.85. Unfortunately, due to the patient's multiple PVCs this was felt to be erroneous and therefore a intravenous adenosine infusion at 140 mcg/kg/m was initiated and an FFR valentino surement was noted to be 0.88 (physiologically insignificant stenosis). Next, attention was turned to the left circumflex/obtuse marginal lesion. Through a 6 Indian EBU 3.5 guide catheter the pressure w evette was then advanced to the distal OM1. An FFR measurement was also performed on this lesion and it was negative at 0.97. Given that the coronary disease was insignificant from a physiologic perspectiv e further intervention was deferred. Most FFR angiography of the RCA and left main/LAD and circumflex vessels did not reveal any guide or wire-related complications. Left ventricular end diastolic press ure was obtained with a pigtail catheter and pullback was performed. All catheter exchanges and adv ancements were performed over a guidewire. At case completion the right radial sheath was removed an d a Terumo radial band was applied with 13 ml of air. The patient tolerated the procedure well and t here were no immediate complications. Conclusion 1. Mildly elevated left ventricular filling pressures. 2. Two-vessel coronary artery disease with patent stents in the circumflex and obtuse marginal vessel s. 3. Negative FFR of the RCA at 0.88 and negative FFR of the obtuse marginal and 0.97. Recommendations Aggressive Medical Therapy ICD implantation for symptomatically ventricular tachycardia
[2016-11-16] MEDS ORDERED: METOPROLOL TART IMMED RELEASE 50 MG TABLET PO SCH (21:00)
[2016-11-16] MEDS ORDERED: PHENOL ORAL SPRAY 177ML BOTTLE. PO PRN (22:15)
[2016-11-16] MEDS ORDERED: ALBUTEROL SULFATE 2.5 MG/3 ML NEBU. NEB PRN (22:15)
[2016-11-16] MEDS ORDERED: RACEPINEPHRINE 2.25% 0.5 ML NEBU. NEB ONE (23:00)
[2016-11-17] VITALS (10 sets, daily range): BP systolic 154–176; BP diastolic 74–90
[2016-11-17] MEDS: IV NORMAL SALINE 1000ML BAG 1,000 ML IV SCH ×2 (03:56→17:29)
[2016-11-17] MEDS ORDERED: CALCIUM CARBONATE 500 MG TAB.CHEW PO ONE (04:00)
[2016-11-17 05:28] LABS: CALCIUM 8.4 mg/dL (8.5-10.1); GFR 31.8; POTASSIUM 4.2 mmol/L (3.5-5.1)
[2016-11-17 06:47] LABS: BASO % 0 % (0-3); EOS % 0 % (0-3); HEMATOCRIT 38.3 % (39.0-53.0); HEMOGLOBIN 12.7 g/dL (13.0-17.5); LYMPH % 11 % (24-48); MEAN CORPUSCULAR HEMOGLOBIN 30 pg (25-35); MEAN CORPUSCULAR HGB CONC 33 g/dL (31-37); MEAN CORPUSCULAR VOLUME 89 fL (79-100); MONO % 13 % (0-9); NEUT % 76 % (31-73); PLATELET COUNT 154 x10^3/uL (140-400); RED BLOOD COUNT 4.29 x10^6/uL (4.30-5.70); RED CELL DISTRIBUTION WIDTH 14.6 % (11.5-14.5); WHITE BLOOD COUNT 9.8 x10^3/uL (4.0-11.0)
[2016-11-17] MEDS: CLOPIDOGREL BISULFATE 75 MG TABLET PO SCH (08:00)
[2016-11-17] MEDS: ASPIRIN CHEWABLE 81 MG TABLET. PO SCH (08:00)
[2016-11-17] MEDS ORDERED: CEFAZOLIN 2GM PREMIX 50 ML IV ONE ×4 (08:45→18:00)
[2016-11-17] MEDS: METOPROLOL TART IMMED RELEASE 50 MG TABLET. PO SCH ×2 (08:51→20:40)
[2016-11-17] MEDS: AMIODARONE HCL 200 MG TABLET. PO SCH (08:51)
[2016-11-17] MEDS ORDERED: BACITRACIN 50,000 UNIT in IV NORMAL SALINE 250ML 250 ML IRR ONE (09:00)
[2016-11-17] MEDS ORDERED: LIDOCAINE 2% 100 MG/5 ML DISP.SYRIN. ONE (10:01)
[2016-11-17] MEDS ORDERED: PROPOFOL 20 ML IV ONE ×2 (10:01)
[2016-11-17] MEDS ORDERED: PROPOFOL 0 ML IV ONE (10:02)
[2016-11-17] MEDS ORDERED: LIDOCAINE 2%/EPI 1:100,000 20 ML VIAL. ONE (10:14)
[2016-11-17] MEDS ORDERED: LIDOCAINE 2%/EPI 1:100,000 20 ML VIAL. IJ ONE (11:00)
--- NOTE | 2016-11-17 11:56 | PDOC ---
Renal-Progress Notes Subjective Notes Notes NONE History of Present Illness Hx of present illness NO CHANGE Vitals Vitals Vital Signs Date Time Temp Pulse Resp B/P Pulse Ox O2 Delivery O2 Flow Rate FiO2 11/17/16 08:51 83 171/87 11/17/16 08:00 Room Air 11/17/16 07:46 98.6 19 98 98.6 11/17/16 03:40 2.0 Weight Weight [ ] I.O. Intake and Output Intake and Output 11/17/16 07:00 Intake Total 2040 ml Output Total 2475 ml Balance -435 ml Intake Oral 910 ml IV Total 1130 ml Output Urine Total 2475 ml # Voids 3 # Bowel Movements 3 Labs Labs Laboratory Tests Test 11/16/16 14:13 11/17/16 03:40 11/17/16 05:00 Activated Clotting Time 185sec (92-181) Sodium Level 143mmol/L (136-145) Potassium Level 4.2mmol/L (3.5-5.1) Chloride Level 109mmol/L (98-107) Carbon Dioxide Level 23mmol/L (21-32) Anion Gap 11 (6-14) Blood Urea Nitrogen 45mg/dL (8-26) Creatinine 2.0mg/dL (0.7-1.3) Estimated GFR (Cockcroft-Gault) 31.8 Glucose Level 131mg/dL (70-99) Calcium Level 8.4mg/dL (8.5-10.1) White Blood Count 9.8x10^3/uL (4.0-11.0) Red Blood Count 4.29x10^6/uL (4.30-5.70) Hemoglobin 12.7g/dL (13.0-17.5) Hematocrit 38.3% (39.0-53.0) Mean Corpuscular Volume 89fL (79-100) Mean Corpuscular Hemoglobin 30pg (25-35) Mean Corpuscular Hemoglobin Concent 33g/dL (31-37) Red Cell Distribution Width 14.6% (11.5-14.5) Platelet Count 154x10^3/uL (140-400) Neutrophils (%) (Auto) 76% (31-73) Lymphocytes (%) (Auto) 11% (24-48) Monocytes (%) (Auto) 13% (0-9) Eosinophils (%) (Auto) 0% (0-3) Basophils (%) (Auto) 0% (0-3) Neutrophils # (Auto) 7.5x10^3uL (1.8-7.7) Lymphocytes # (Auto) 1.0x10^3/uL (1.0-4.8) Monocytes # (Auto) 1.2x10^3/uL (0.0-1.1) Eosinophils # (Auto) 0.0x10^3/uL (0.0-0.7) Basophils # (Auto) 0.0x10^3/uL (0.0-0.2) Review of Systems Constitutional: yes: alert, oriented Ears/Nose/Throat: Yes: no symptom reported Pulmonary: Yes no symptom reported Cardiovascular: Yes no symptom reported Gastrointestional: Yes: no symptom reported Genitourinary: Yes: no symptom reported Musculoskeletal: Yes: no symptom reported Physical Exam General Appearance: no apparent distress Skin: warm Respiratory: bilateral CTA Heart: S1S2 Abdomen: soft, bowel sounds present Neurology: alert, oriented, follow commands Musculoskeletal: Other (traumatic fall 11/2015 associated with very brief cardiac arrest) Assessment Assessment IMP CKD STAGE 3 WITH CR STABLE AT 2.0 CHEST PAIN ARRHYTHMIA SYNCOPE PLAN CONT IVF'S LABS IN AM ZACH PATTERSON MD Nov 17, 2016 11:56
--- NOTE | 2016-11-17 12:48 | CARD ---
APPROVED REPORT EXAM Successful implantation of Biotronik dual-chamber automatic implantable cardioverter defibrillator wi defibrillation threshold measurement at the time of implantation. INDICATIONS Secondary prevention of sudden cardiac in a patient with sustained ventricular tachycardia and syncope PROCEDURE After explaining the risks, benefits, and alternative options, informed consent was obtained from the patient. The patient was brought to the cardiac catheterization lab and the left chest and shoulder were prepp ed and draped in the usual fashion. 30 mL of 2% lidocaine was infiltrated into the skin and subcutaneous tissues for local anesthesia. An incision was made over the left infraclavicular fossa and using blunt dissection and cautery pocket was created. Venous access was obtained in the left subclavian vein and 10 and 7 Kazakh sheaths were inserted. A Biotronik bipolar active fixation right ventricular lead model Protego, serial #[id number] was advanc ed under fluoroscopic guidance and the tip was positioned in the right ventricular apex. Following th is, a Biotronik bipolar active fixation right atrial lead model Solia serial #[id number] was advanced u nder fluoroscopic guidance and the tip was positioned in the right atrial appendage. The leads were s ecured into place and very attached to a Biotronik dual-chamber AICD generator model Itrevia 7 DR-T D F4, serial #[id number]. This was placed in the pocket was subsequently closed in 3 layers. Hemostasis w as secured. Ventricular fibrillation was then induced to check defibrillation threshold. Patient successfully con verted to sinus rhythm with 15 J shock therapy with a shock impedance of 44 ohms. At the end of proce dure, the right ventricular lead showed sensing amplitude of 8.7 mV, impedance of 540 ohms and a thre shold of 0.5 V. The right atrial lead showed a sensing amplitude of 4.3 mV, impedance of 435 ohms and a threshold of 1.4 V. Patient are the procedure well. There were no immediate complications. CONCLUSION Successful implantation of Biotronik dual-chamber automatic implantable cardioverter defibrillator fo r secondary prevention of sudden cardiac in a patient with sustained ventricular tachycardia an d syncope. Defibrillation thresholds were measured at the time of implantation.
--- NOTE | 2016-11-17 13:19 | RAD ---
Portable chest, 11/17/2016: History: Post pacemaker insertion Comparison is made to a study from 11/14/2016. A left-sided transvenous pacemaker has been inserted with one lead extending into the right ventricle with the tip of the other lead is projected over the superior aspect of the right atrium. The heart size and pulmonary vascularity are within normal limits. There is calcific plaquing of aorta. No pulmonary infiltrates are seen. There is no evidence of pleural fluid or pneumothorax. IMPRESSION: 1. Interval insertion of a left-sided transvenous pacing device. 2. No acute cardiopulmonary abnormality is detected.
--- NOTE | 2016-11-17 20:32 | PDOC ---
GENERAL General: seen/examined this am. awake and alert and no futher arythmmias. chest clear and heart regular. bilateral black eyes. for defibrillator placement today. blood pressure some increased and will need to address after surgery. Problems: VITAL SIGNS Vital Signs: Vital Signs Date Time Temp Pulse Resp B/P Pulse Ox O2 Delivery O2 Flow Rate FiO2 11/17/16 14:58 80 167/78 11/17/16 14:30 98.4 18 97 Room Air 98.4 11/17/16 11:43 2.0 I & O I & O Intake and Output 11/17/16 07:00 Intake Total 2040 ml Output Total 2475 ml Balance -435 ml Intake Oral 910 ml IV Total 1130 ml Output Urine Total 2475 ml # Voids 3 # Bowel Movements 3 ALLERGIES Allergies: Allergies Coded Allergies Type Severity Reaction Last Updated Verified No Known Drug Allergies 11/14/16 No MEDS Medications: Current Medications Medications (Trade) Dose Ordered Sig/Mamta Start Time Stop Time Status Last Admin Dose Admin Acetaminophen (Tylenol) 650 mg PRN Q4HRS PRN 11/16/16 04:53 Adenosine (Adenocard) 12 mg 1X ONCE 11/14/16 18:45 11/14/16 18:46 DC Adenosine (Adenoscan) 90 mg STK-MED ONCE 11/16/16 14:19 11/16/16 14:20 DC Adenosine/Sodium Chloride (Adenoscan/Iv Sodium Chloride 0.9% 50ml) 120 ml @ 200 mls/hr 1X ONCE 11/16/16 14:45 11/16/16 15:21 DC 11/16/16 14:45 200 MLS/HR Albuterol Sulfate (Ventolin Neb Soln) 2.5 mg PRN Q6HRS PRN 11/16/16 22:15 11/16/16 22:27 2.5 MG Amiodarone HCl (Cordarone) 200 mg DAILY 11/15/16 17:45 11/17/16 08:51 200 MG Amiodarone HCl 150 mg/Dextrose 103 ml @ 618 mls/hr 1X ONCE 11/14/16 19:00 11/14/16 19:09 DC 11/14/16 18:54 618 MLS/HR Amiodarone HCl/ Dextrose (Cordarone) 518 ml @ 0 mls/hr CONT PRN 11/14/16 19:00 11/15/16 18:09 DC 11/14/16 19:04 33 MLS/HR Aspirin (Children'S Aspirin) 81 mg DAILYWBKFT 11/16/16 08:00 11/16/16 09:24 81 MG Aspirin 81 mg 81 mg DAILYWBKFT 11/15/16 09:15 11/16/16 04:53 DC 11/15/16 10:22 81 MG Atropine Sulfate 0.5 mg 0.5 mg STK-MED ONCE 11/16/16 14:32 11/16/16 14:33 DC Bacitracin/Sodium Chloride (Bacitracin/Iv Sodium Chloride 0.9% 250ml) 250 ml @ 0 mls/hr 1X ONCE 11/17/16 09:00 11/17/16 09:01 DC 11/17/16 11:36 250 MLS/HR Calcium Carbonate/ Glycine (Tums) 500 mg 1X ONCE 11/17/16 04:00 11/17/16 04:01 DC 11/17/16 03:55 500 MG Cefazolin Sodium/ Dextrose (Ancef 2gm Premix) 50 ml @ 100 mls/hr 1X ONCE 11/17/16 18:00 11/17/16 18:29 DC 11/17/16 17:49 100 MLS/HR Clopidogrel Bisulfate (Plavix) 75 mg DAILYWBKFT 11/15/16 08:00 11/16/16 09:24 75 MG Epinephrine (S2 Racepinephrine) 0.5 ml 1X ONCE 11/16/16 23:00 11/16/16 23:01 DC 11/16/16 22:33 0.5 ML Fentanyl Citrate (Fentanyl 2ml Vial) 100 mcg 1X ONCE 11/16/16 14:15 11/16/16 14:16 DC 11/16/16 15:03 100 MCG Fentanyl Citrate 25 mcg 25 mcg PRN Q15MIN PRN 11/14/16 13:30 11/16/16 04:55 DC 11/14/16 13:40 25 MCG Heparin Sodium (Porcine) 2,500 unit 1X ONCE 11/16/16 14:15 11/16/16 14:16 DC 11/16/16 15:05 2,500 UNIT Heparin Sodium (Porcine) 4000 unit 4,000 unit 1X ONCE 11/15/16 09:45 11/15/16 09:46 DC 11/15/16 11:21 4,000 UNIT Heparin Sodium/ Dextrose 500 ml @ 0 mls/hr CONT PRN 11/15/16 09:15 11/17/16 08:28 DC 11/15/16 11:18 19.9 MLS/HR Heparin Sodium/ Sodium Chloride 1,000 unit 1X ONCE 11/16/16 14:15 11/16/16 14:16 DC 11/16/16 15:04 1,000 UNIT Hydralazine HCl 10 mg 10 mg PRN Q4HRS PRN 11/14/16 16:30 11/16/16 12:50 10 MG Info (Do NOT chart on this entry -- for MONITORING) 1 each PRN DAILY PRN 11/16/16 14:15 11/18/16 14:14 Iodixanol (Visipaque 320) 100 ml 1X ONCE 11/16/16 14:15 11/16/16 14:16 DC 11/16/16 14:59 98 ML Lidocaine HCl 20 ml 1X ONCE 11/16/16 14:15 11/16/16 14:16 DC 11/16/16 15:01 2 ML Lidocaine HCl 100 mg 100 mg STK-MED ONCE 11/17/16 10:01 11/17/16 10:02 DC Lidocaine/ Epinephrine (Xylocaine 2%-Epi 1:100,000) 20 ml STK-MED ONCE 11/17/16 10:14 11/17/16 10:15 DC Lidocaine/ Epinephrine 20 ml 20 ml 1X ONCE 11/17/16 11:00 11/17/16 11:05 DC 11/17/16 11:36 30 ML Metoprolol Tartrate (Lopressor) 25 mg 1X ONCE 11/16/16 16:00 11/16/16 16:01 DC 11/16/16 16:23 25 MG Metoprolol Tartrate 50 mg 50 mg BID 11/17/16 09:00 11/17/16 08:51 50 MG Midazolam HCl (Versed) 2 mg 1X ONCE 11/16/16 14:15 11/16/16 14:16 DC 11/16/16 15:03 3 MG Nitroglycerin (Nitroglycerin) 200 mcg 1X ONCE 11/16/16 14:15 11/16/16 14:16 DC 11/16/16 15:04 200 MCG Ondansetron HCl (Zofran) 4 mg PRN Q8HRS PRN 11/14/16 15:15 11/15/16 15:14 DC Propofol (Diprivan) 0 ml @ As Directed STK-MED ONCE 11/17/16 10:02 11/17/16 10:03 DC Sodium Chloride (Iv Sodium Chloride 0.9% 500ml Bag) 500 ml @ 500 mls/hr 1X ONCE 11/14/16 14:00 11/14/16 14:59 DC 11/14/16 16:02 500 MLS/HR Sodium Chloride (Iv Sodium Chloride 0.9% 1000ml Bag) 1,000 ml @ 75 mls/hr [id number] 11/15/16 11:15 11/17/16 17:29 75 MLS/HR Throat Lozenges (Chloraseptic) 1 spray PRN Q2HR PRN 11/16/16 22:15 11/17/16 00:04 1 SPRAY Verapamil HCl (Verapamil) 2.5 mg 1X ONCE 11/16/16 14:15 11/16/16 14:16 DC 11/16/16 15:04 2.5 MG LAB Lab: Laboratory Tests Test 11/17/16 03:40 11/17/16 05:00 Sodium Level 143mmol/L (136-145) Potassium Level 4.2mmol/L (3.5-5.1) Chloride Level 109mmol/L (98-107) Carbon Dioxide Level 23mmol/L (21-32) Anion Gap 11 (6-14) Blood Urea Nitrogen 45mg/dL (8-26) Creatinine 2.0mg/dL (0.7-1.3) Estimated GFR (Cockcroft-Gault) 31.8 Glucose Level 131mg/dL (70-99) Calcium Level 8.4mg/dL (8.5-10.1) White Blood Count 9.8x10^3/uL (4.0-11.0) Red Blood Count 4.29x10^6/uL (4.30-5.70) Hemoglobin 12.7g/dL (13.0-17.5) Hematocrit 38.3% (39.0-53.0) Mean Corpuscular Volume 89fL (79-100) Mean Corpuscular Hemoglobin 30pg (25-35) Mean Corpuscular Hemoglobin Concent 33g/dL (31-37) Red Cell Distribution Width 14.6% (11.5-14.5) Platelet Count 154x10^3/uL (140-400) Neutrophils (%) (Auto) 76% (31-73) Lymphocytes (%) (Auto) 11% (24-48) Monocytes (%) (Auto) 13% (0-9) Eosinophils (%) (Auto) 0% (0-3) Basophils (%) (Auto) 0% (0-3) Neutrophils # (Auto) 7.5x10^3uL (1.8-7.7) Lymphocytes # (Auto) 1.0x10^3/uL (1.0-4.8) Monocytes # (Auto) 1.2x10^3/uL (0.0-1.1) Eosinophils # (Auto) 0.0x10^3/uL (0.0-0.7) Basophils # (Auto) 0.0x10^3/uL (0.0-0.2) LAKHWINDER AMAYA MD Nov 17, 2016 20:32
[2016-11-17] MEDS: hydrALAZINE 20 MG/ML VIAL. IVP PRN (23:26)
[2016-11-18 03:45] VITALS: BP 153/70
[2016-11-18] MEDS: IV NORMAL SALINE 1000ML BAG 1,000 ML IV SCH ×2 (05:55→13:22)
[2016-11-18 06:07] LABS: CALCIUM 8.5 mg/dL (8.5-10.1); CREATININE 1.9 mg/dL (0.7-1.3); GFR 33.7; POTASSIUM 3.9 mmol/L (3.5-5.1)
[2016-11-18 07:15] VITALS: BP 169/77
[2016-11-18] MEDS: ASPIRIN CHEWABLE 81 MG TABLET. PO SCH (08:00)
--- NOTE | 2016-11-18 08:34 | RAD ---
EXAM: Chest, single view. HISTORY: Pacemaker. COMPARISON: 11/17/2016. FINDINGS: A frontal view of the chest is obtained. There is a left cardiac pacemaker defibrillator unchanged in position. There is no infiltrate, effusion or pneumothorax. There is lucency along the right hemidiaphragm likely due to linear basilar atelectasis or colonic interposition superior to the liver. IMPRESSION: Cardiac pacemaker defibrillator unchanged in position.
[2016-11-18] MEDS: METOPROLOL TART IMMED RELEASE 50 MG TABLET. PO SCH ×2 (09:00→21:10)
[2016-11-18] MEDS: AMIODARONE HCL 200 MG TABLET. PO SCH (09:00)
[2016-11-18] MEDS ORDERED: AMLODIPINE BESYLATE 5 MG TABLET. PO SCH (09:00)
--- NOTE | 2016-11-18 10:03 | PDOC ---
CARDIO Progress Notes Date and Time Date of Service 11/18/2016 Time of Evaluation 1003 Subjective Subjective: No Chest Pain, No shortness of breath, No Palpitations, No Dizziness Vitals Vitals Vital Signs Date Time Temp Pulse Resp B/P Pulse Ox O2 Delivery O2 Flow Rate FiO2 11/18/16 07:15 98.8 78 20 169/77 95 Room Air 98.8 11/17/16 11:43 2.0 Weight Weight [ ] Input and Output Intake and Output Intake and Output 11/18/16 06:59 Intake Total 1950 ml Output Total 1350 ml Balance 600 ml Intake Oral 500 ml IV Total 1450 ml Output Urine Total 1350 ml Laboratory Labs Laboratory Tests Test 11/18/16 05:00 Sodium Level 143mmol/L (136-145) Potassium Level 3.9mmol/L (3.5-5.1) Chloride Level 110mmol/L (98-107) Carbon Dioxide Level 22mmol/L (21-32) Anion Gap 11 (6-14) Blood Urea Nitrogen 43mg/dL (8-26) Creatinine 1.9mg/dL (0.7-1.3) Estimated GFR (Cockcroft-Gault) 33.7 Glucose Level 105mg/dL (70-99) Calcium Level 8.5mg/dL (8.5-10.1) Physical Exam HEENT: Neck Supple W Full Motion Chest: Symmetric, Other (left pectoral incision c/d/i - no evidence of erythema , edema, ecchymosis; steri-strips intact) LUNGS: Clear to Auscultation Heart: S1S2, RRR (SR, episode of sutained VT yesterday), murmurs (2/6 systolic murmur to LLS border) Abdomen: Soft N/T Extremities: Other (1+ bilateral LE edema) Neurology: alert, oriented, follow commands Diagnostic Tests Chest X-ray: Other (no pneumothorax) Assessment Assessment 1. Sustained VT; symptomatic s/p dual chamber Biotronik ICD for prevention of SCD CXR without ptx today no findings on interrogation continue anti-arrhythmic therapy f/u for wound check in one week and 3 months for ICD interrogation in office 2. CAD PCI/ORQUIDEA 11/2015 to OM1 and LCx cardiac cath demonstrating patent stents continue DAPT 3. chronic diastolic CHF, preserved LVEF of 55-60% compensated with medical management 4. HTN control with meds 5. hyperlipidemia LDLs controlled with statin therapy Agreeable with discharge when planned by primary services Cardiology will contact pt to schedule f/u hattiet. RICHARD CONSTANTINO TRAFFIC CONTROL SPECIALIST Nov 18, 2016 10:03
--- NOTE | 2016-11-18 10:17 | PDOC ---
GENERAL General: vss and afebrile. awake and alert. had short run of v-tach while I was seeing this am that was asymptomatic. will defer to cardiology. defibrillator in yest and site ok. chest clear and heart regular. little unsteady on feet and will ask therapy opinion on whether or not would need snu at md. Problems: VITAL SIGNS Vital Signs: Vital Signs Date Time Temp Pulse Resp B/P Pulse Ox O2 Delivery O2 Flow Rate FiO2 11/18/16 07:15 98.8 78 20 169/77 95 Room Air 98.8 11/17/16 11:43 2.0 I & O I & O Intake and Output 11/18/16 07:00 Intake Total 1950 ml Output Total 1350 ml Balance 600 ml Intake Oral 500 ml IV Total 1450 ml Output Urine Total 1350 ml ALLERGIES Allergies: Allergies Coded Allergies Type Severity Reaction Last Updated Verified No Known Drug Allergies 11/14/16 No MEDS Medications: Current Medications Medications (Trade) Dose Ordered Sig/Mamta Start Time Stop Time Status Last Admin Dose Admin Acetaminophen (Tylenol) 650 mg PRN Q4HRS PRN 11/16/16 04:53 11/17/16 20:40 650 MG Adenosine (Adenocard) 12 mg 1X ONCE 11/14/16 18:45 11/14/16 18:46 DC Adenosine (Adenoscan) 90 mg STK-MED ONCE 11/16/16 14:19 11/16/16 14:20 DC Adenosine/Sodium Chloride (Adenoscan/Iv Sodium Chloride 0.9% 50ml) 120 ml @ 200 mls/hr 1X ONCE 11/16/16 14:45 11/16/16 15:21 DC 11/16/16 14:45 200 MLS/HR Albuterol Sulfate (Ventolin Neb Soln) 2.5 mg PRN Q6HRS PRN 11/16/16 22:15 11/16/16 22:27 2.5 MG Amiodarone HCl (Cordarone) 200 mg DAILY 11/15/16 17:45 11/17/16 08:51 200 MG Amiodarone HCl 150 mg/Dextrose 103 ml @ 618 mls/hr 1X ONCE 11/14/16 19:00 11/14/16 19:09 DC 11/14/16 18:54 618 MLS/HR Amiodarone HCl/ Dextrose (Cordarone) 518 ml @ 0 mls/hr CONT PRN 11/14/16 19:00 11/15/16 18:09 DC 11/14/16 19:04 33 MLS/HR Amlodipine Besylate (Norvasc) 5 mg DAILY 11/18/16 09:00 Aspirin (Children'S Aspirin) 81 mg DAILYWBKFT 11/16/16 08:00 11/16/16 09:24 81 MG Aspirin 81 mg 81 mg DAILYWBKFT 11/15/16 09:15 11/16/16 04:53 DC 11/15/16 10:22 81 MG Atropine Sulfate 0.5 mg 0.5 mg STK-MED ONCE 11/16/16 14:32 11/16/16 14:33 DC Bacitracin/Sodium Chloride (Bacitracin/Iv Sodium Chloride 0.9% 250ml) 250 ml @ 0 mls/hr 1X ONCE 11/17/16 09:00 11/17/16 09:01 DC 11/17/16 11:36 250 MLS/HR Calcium Carbonate/ Glycine (Tums) 500 mg 1X ONCE 11/17/16 04:00 11/17/16 04:01 DC 11/17/16 03:55 500 MG Cefazolin Sodium/ Dextrose (Ancef 2gm Premix) 50 ml @ 100 mls/hr 1X ONCE 11/17/16 18:00 11/17/16 18:29 DC 11/17/16 17:49 100 MLS/HR Clopidogrel Bisulfate (Plavix) 75 mg DAILYWBKFT 11/15/16 08:00 11/16/16 09:24 75 MG Epinephrine (S2 Racepinephrine) 0.5 ml 1X ONCE 11/16/16 23:00 11/16/16 23:01 DC 11/16/16 22:33 0.5 ML Fentanyl Citrate (Fentanyl 2ml Vial) 100 mcg 1X ONCE 11/16/16 14:15 11/16/16 14:16 DC 11/16/16 15:03 100 MCG Fentanyl Citrate 25 mcg 25 mcg PRN Q15MIN PRN 11/14/16 13:30 11/16/16 04:55 DC 11/14/16 13:40 25 MCG Heparin Sodium (Porcine) 2,500 unit 1X ONCE 11/16/16 14:15 3/30/17 14:16 DC 11/16/16 15:05 2,500 UNIT Heparin Sodium (Porcine) 4000 unit 4,000 unit 1X ONCE 11/15/16 09:45 11/15/16 09:46 DC 11/15/16 11:21 4,000 UNIT Heparin Sodium/ Dextrose 500 ml @ 0 mls/hr CONT PRN 11/15/16 09:15 11/17/16 08:28 DC 11/15/16 11:18 19.9 MLS/HR Heparin Sodium/ Sodium Chloride 1,000 unit 1X ONCE 11/16/16 14:15 11/16/16 14:16 DC 11/16/16 15:04 1,000 UNIT Hydralazine HCl 10 mg 10 mg PRN Q4HRS PRN 11/14/16 16:30 11/17/16 23:26 10 MG Info (Do NOT chart on this entry -- for MONITORING) 1 each PRN DAILY PRN 11/16/16 14:15 11/18/16 14:14 Iodixanol (Visipaque 320) 100 ml 1X ONCE 11/16/16 14:15 11/16/16 14:16 DC 11/16/16 14:59 98 ML Lidocaine HCl 20 ml 1X ONCE 11/16/16 14:15 11/16/16 14:16 DC 11/16/16 15:01 2 ML Lidocaine HCl 100 mg 100 mg STK-MED ONCE 11/17/16 10:01 11/17/16 10:02 DC Lidocaine/ Epinephrine (Xylocaine 2%-Epi 1:100,000) 20 ml STK-MED ONCE 11/17/16 10:14 11/17/16 10:15 DC Lidocaine/ Epinephrine 20 ml 20 ml 1X ONCE 11/17/16 11:00 11/17/16 11:05 DC 11/17/16 11:36 30 ML Metoprolol Tartrate (Lopressor) 25 mg 1X ONCE 11/16/16 16:00 11/16/16 16:01 DC 11/16/16 16:23 25 MG Metoprolol Tartrate 50 mg 50 mg BID 11/17/16 09:00 11/17/16 20:40 50 MG Midazolam HCl (Versed) 2 mg 1X ONCE 11/16/16 14:15 11/16/16 14:16 DC 11/16/16 15:03 3 MG Nitroglycerin (Nitroglycerin) 200 mcg 1X ONCE 11/16/16 14:15 11/16/16 14:16 DC 11/16/16 15:04 200 MCG Ondansetron HCl (Zofran) 4 mg PRN Q8HRS PRN 11/14/16 15:15 11/15/16 15:14 DC Propofol (Diprivan) 0 ml @ As Directed STK-MED ONCE 11/17/16 10:02 11/17/16 10:03 DC Sodium Chloride (Iv Sodium Chloride 0.9% 500ml Bag) 500 ml @ 500 mls/hr 1X ONCE 11/14/16 14:00 11/14/16 14:59 DC 11/14/16 16:02 500 MLS/HR Sodium Chloride (Iv Sodium Chloride 0.9% 1000ml Bag) 1,000 ml @ 75 mls/hr [id number] 11/15/16 11:15 11/17/16 17:29 75 MLS/HR Throat Lozenges (Chloraseptic) 1 spray PRN Q2HR PRN 11/16/16 22:15 11/17/16 00:04 1 SPRAY Verapamil HCl (Verapamil) 2.5 mg 1X ONCE 11/16/16 14:15 11/16/16 14:16 DC 11/16/16 15:04 2.5 MG LAB Lab: Laboratory Tests Test 11/18/16 05:00 Sodium Level 143mmol/L (136-145) Potassium Level 3.9mmol/L (3.5-5.1) Chloride Level 110mmol/L (98-107) Carbon Dioxide Level 22mmol/L (21-32) Anion Gap 11 (6-14) Blood Urea Nitrogen 43mg/dL (8-26) Creatinine 1.9mg/dL (0.7-1.3) Estimated GFR (Cockcroft-Gault) 33.7 Glucose Level 105mg/dL (70-99) Calcium Level 8.5mg/dL (8.5-10.1) LAKHWINDER AMAYA MD Nov 18, 2016 10:17
[2016-11-18 11:50] VITALS: BP 169/73
[2016-11-18] MEDS: CLOPIDOGREL BISULFATE 75 MG TABLET PO SCH (12:49)
[2016-11-18 15:00] VITALS: BP 181/72
[2016-11-18] MEDS ORDERED: MAGNESIUM SULFATE 2GM 50 ML IV PRN (16:15)
--- NOTE | 2016-11-18 16:15 | PDOC ---
SUBJECTIVE ROS CKD III feeling fine CVS: no Orthopnea, no CP RESP: no SOB, no COLÓN GI: no Nausea, no Vomiting : no Dysuria, occ Urgency/ Frequency OBJECTIVE Vital Signs Vital Signs Date Time Temp Pulse Resp B/P Pulse Ox O2 Delivery O2 Flow Rate FiO2 11/18/16 11:50 98.1 75 20 169/73 96 Room Air 98.1 11/18/16 08:00 2.0 I & 0 Intake and Output 11/18/16 07:00 Intake Total 1950 ml Output Total 1350 ml Balance 600 ml Intake Oral 500 ml IV Total 1450 ml Output Urine Total 1350 ml PHYSICAL EXAM Physical Exam GEN: Awake, Oriented x 2, In no distress EYES: Vision Unchanged, Conjunctiva Normal; nya-orbital ecchymosis EN: No EN Drainage, Mucous Membranes moist NECK: no JVD, no JVP, Supple, no Thyromegaly CVS: S1S2, + Murmur, No Gallop, No Rub,no Edema RESP: no Rales, no Rhonchi,no Acc. Muscle Use GI: BS + ve, NO Bruit, Non Tender, Non Distended : no CVA tenderness, no Suprapubic Tenderness DIAGNOSIS/ASSESSMENT Assessment & Plan ARF: ? CAN vs AVALOS. Not sure if Creat of 0.8 was true normal. Current fluid and E-lyte status does not necessitate emergent need for dialysis. Will re- evaluate for dialysis in the am ? CKD III - Creat was ^ when he came in too - ? Du to HCTZ + CAITLYN-i (currently off and still ^) HTN: Current BP meds as reviewed. See orders for changes. Urgency / frequency - Bl Scan Discussed Plan of Care with family son at bedside Problems: COMMENT/RELEVANT DATA Meds Current Medications Medications (Trade) Dose Ordered Sig/Mamta Start Time Stop Time Status Last Admin Dose Admin Acetaminophen (Tylenol) 650 mg PRN Q4HRS PRN 11/16/16 04:53 11/17/16 20:40 650 MG Adenosine (Adenocard) 12 mg 1X ONCE 11/14/16 18:45 11/14/16 18:46 DC Adenosine (Adenoscan) 90 mg STK-MED ONCE 11/16/16 14:19 11/16/16 14:20 DC Adenosine/Sodium Chloride (Adenoscan/Iv Sodium Chloride 0.9% 50ml) 120 ml @ 200 mls/hr 1X ONCE 11/16/16 14:45 11/16/16 15:21 DC 11/16/16 14:45 200 MLS/HR Albuterol Sulfate (Ventolin Neb Soln) 2.5 mg PRN Q6HRS PRN 11/16/16 22:15 11/16/16 22:27 2.5 MG Amiodarone HCl (Cordarone) 200 mg DAILY 11/15/16 17:45 11/17/16 08:51 200 MG Amiodarone HCl 150 mg/Dextrose 103 ml @ 618 mls/hr 1X ONCE 11/14/16 19:00 11/14/16 19:09 DC 11/14/16 18:54 618 MLS/HR Amiodarone HCl/ Dextrose (Cordarone) 518 ml @ 0 mls/hr CONT PRN 11/14/16 19:00 11/15/16 18:09 DC 11/14/16 19:04 33 MLS/HR Amlodipine Besylate (Norvasc) 5 mg DAILY 11/18/16 09:00 Aspirin (Children'S Aspirin) 81 mg DAILYWBKFT 11/16/16 08:00 11/16/16 09:24 81 MG Aspirin 81 mg 81 mg DAILYWBKFT 11/15/16 09:15 11/16/16 04:53 DC 11/15/16 10:22 81 MG Atropine Sulfate 0.5 mg 0.5 mg STK-MED ONCE 11/16/16 14:32 11/16/16 14:33 DC Bacitracin/Sodium Chloride (Bacitracin/Iv Sodium Chloride 0.9% 250ml) 250 ml @ 0 mls/hr 1X ONCE 11/17/16 09:00 11/17/16 09:01 DC 11/17/16 11:36 250 MLS/HR Calcium Carbonate/ Glycine (Tums) 500 mg 1X ONCE 11/17/16 04:00 11/17/16 04:01 DC 11/17/16 03:55 500 MG Cefazolin Sodium/ Dextrose (Ancef 2gm Premix) 50 ml @ 100 mls/hr 1X ONCE 11/17/16 18:00 11/17/16 18:29 DC 11/17/16 17:49 100 MLS/HR Clopidogrel Bisulfate (Plavix) 75 mg DAILYWBKFT 11/15/16 08:00 11/18/16 12:49 75 MG Epinephrine (S2 Racepinephrine) 0.5 ml 1X ONCE 11/16/16 23:00 11/16/16 23:01 DC 11/16/16 22:33 0.5 ML Fentanyl Citrate (Fentanyl 2ml Vial) 100 mcg 1X ONCE 11/16/16 14:15 11/16/16 14:16 DC 11/16/16 15:03 100 MCG Fentanyl Citrate 25 mcg 25 mcg PRN Q15MIN PRN 11/14/16 13:30 11/16/16 04:55 DC 11/14/16 13:40 25 MCG Heparin Sodium (Porcine) 2,500 unit 1X ONCE 11/16/16 14:15 11/16/16 14:16 DC 11/16/16 15:05 2,500 UNIT Heparin Sodium (Porcine) 4000 unit 4,000 unit 1X ONCE 11/15/16 09:45 11/15/16 09:46 DC 11/15/16 11:21 4,000 UNIT Heparin Sodium/ Dextrose 500 ml @ 0 mls/hr CONT PRN 11/15/16 09:15 11/17/16 08:28 DC 11/15/16 11:18 19.9 MLS/HR Heparin Sodium/ Sodium Chloride 1,000 unit 1X ONCE 11/16/16 14:15 11/16/16 14:16 DC 11/16/16 15:04 1,000 UNIT Hydralazine HCl 10 mg 10 mg PRN Q4HRS PRN 11/14/16 16:30 11/17/16 23:26 10 MG Info (Do NOT chart on this entry -- for MONITORING) 1 each PRN DAILY PRN 11/16/16 14:15 11/18/16 14:14 DC Iodixanol (Visipaque 320) 100 ml 1X ONCE 11/16/16 14:15 11/16/16 14:16 DC 11/16/16 14:59 98 ML Lidocaine HCl 20 ml 1X ONCE 11/16/16 14:15 11/16/16 14:16 DC 11/16/16 15:01 2 ML Lidocaine HCl 100 mg 100 mg STK-MED ONCE 11/17/16 10:01 11/17/16 10:02 DC Lidocaine/ Epinephrine (Xylocaine 2%-Epi 1:100,000) 20 ml STK-MED ONCE 11/17/16 10:14 11/17/16 10:15 DC Lidocaine/ Epinephrine 20 ml 20 ml 1X ONCE 11/17/16 11:00 11/17/16 11:05 DC 11/17/16 11:36 30 ML Metoprolol Tartrate (Lopressor) 25 mg 1X ONCE 11/16/16 16:00 11/16/16 16:01 DC 11/16/16 16:23 25 MG Metoprolol Tartrate 50 mg 50 mg BID 11/17/16 09:00 11/17/16 20:40 50 MG Midazolam HCl (Versed) 2 mg 1X ONCE 11/16/16 14:15 11/16/16 14:16 DC 11/16/16 15:03 3 MG Nitroglycerin (Nitroglycerin) 200 mcg 1X ONCE 11/16/16 14:15 11/16/16 14:16 DC 11/16/16 15:04 200 MCG Ondansetron HCl (Zofran) 4 mg PRN Q8HRS PRN 11/14/16 15:15 11/15/16 15:14 DC Propofol (Diprivan) 0 ml @ As Directed STK-MED ONCE 11/17/16 10:02 11/17/16 10:03 DC Sodium Chloride (Iv Sodium Chloride 0.9% 500ml Bag) 500 ml @ 500 mls/hr 1X ONCE 11/14/16 14:00 11/14/16 14:59 DC 11/14/16 16:02 500 MLS/HR Sodium Chloride (Iv Sodium Chloride 0.9% 1000ml Bag) 1,000 ml @ 75 mls/hr [id number] 11/15/16 11:15 11/18/16 13:22 75 MLS/HR Throat Lozenges (Chloraseptic) 1 spray PRN Q2HR PRN 11/16/16 22:15 11/17/16 00:04 1 SPRAY Verapamil HCl (Verapamil) 2.5 mg 1X ONCE 11/16/16 14:15 11/16/16 14:16 DC 11/16/16 15:04 2.5 MG Lab Laboratory Tests Test 11/18/16 05:00 Sodium Level 143mmol/L (136-145) Potassium Level 3.9mmol/L (3.5-5.1) Chloride Level 110mmol/L (98-107) Carbon Dioxide Level 22mmol/L (21-32) Anion Gap 11 (6-14) Blood Urea Nitrogen 43mg/dL (8-26) Creatinine 1.9mg/dL (0.7-1.3) Estimated GFR (Cockcroft-Gault) 33.7 Glucose Level 105mg/dL (70-99) Calcium Level 8.5mg/dL (8.5-10.1) GORDO HARRISON MD Nov 18, 2016 16:15
[2016-11-18 19:45] VITALS: BP 183/74
[2016-11-18] MEDS: hydrALAZINE 20 MG/ML VIAL. IVP PRN (19:56)
[2016-11-18 23:40] VITALS: BP 154/64
[2016-11-19] VITALS (7 sets, daily range): BP systolic 148–182; BP diastolic 69–91
[2016-11-19] MEDS: IV NORMAL SALINE 1000ML BAG 1,000 ML IV SCH ×2 (03:12→17:43)
[2016-11-19 05:20] LABS: ALBUMIN 2.8 g/dL (3.4-5.0); CALCIUM 8.7 mg/dL (8.5-10.1); CREATININE 1.7 mg/dL (0.7-1.3); GFR 38.3; PHOSPHORUS 3.2 mg/dL (2.6-4.7); POTASSIUM 3.9 mmol/L (3.5-5.1)
--- NOTE | 2016-11-19 07:13 | PDOC ---
SUBJECTIVE ROS WARNER feeling better this am CVS: no Orthopnea, no CP RESP: no SOB, no COLÓN GI: no Nausea, no Vomiting : no Dysuria, occ Urgency OBJECTIVE Vital Signs Vital Signs Date Time Temp Pulse Resp B/P Pulse Ox O2 Delivery O2 Flow Rate FiO2 11/19/16 03:00 98.1 92 20 155/74 96 Room Air 98.1 11/18/16 08:00 2.0 I & 0 Intake and Output 11/19/16 07:00 Intake Total 1720 ml Output Total 1400 ml Balance 320 ml Intake Oral 820 ml IV Total 900 ml Output Urine Total 1400 ml # Bowel Movements 1 PHYSICAL EXAM Physical Exam GEN: Awake, Oriented x 2, In no distress EYES: Vision Unchanged, Conjunctiva Normal; nya-orbital ecchymosis EN: No EN Drainage, Mucous Membranes moist NECK: no JVD, no JVP, Supple, no Thyromegaly CVS: S1S2, + Murmur, No Gallop, No Rub,no Edema RESP: no Rales, no Rhonchi,no Acc. Muscle Use GI: BS + ve, NO Bruit, Non Tender, Non Distended : no CVA tenderness, no Suprapubic Tenderness DIAGNOSIS/ASSESSMENT Assessment & Plan ARF: ? CAN. Not sure if Creat of 0.8 was true normal however Creat is trending down now so will see where he settles (Off of CAITLYN-i) Current fluid and E-lyte status does not necessitate emergent need for dialysis. Will re-evaluate for dialysis in the am ? CKD III - Creat was ^ when he came in too - ? Du to HCTZ + CAITLYN-i (currently off) HTN: Current BP meds as reviewed. See orders for changes. ^ed Na - currently NPO for swallow eval - Urgency / frequency - Bl Scan had min PVR COMMENT/RELEVANT DATA Meds Current Medications Medications (Trade) Dose Ordered Sig/Mamta Start Time Stop Time Status Last Admin Dose Admin Acetaminophen (Tylenol) 650 mg PRN Q4HRS PRN 11/16/16 04:53 11/17/16 20:40 650 MG Adenosine (Adenocard) 12 mg 1X ONCE 11/14/16 18:45 11/14/16 18:46 DC Adenosine (Adenoscan) 90 mg STK-MED ONCE 11/16/16 14:19 11/16/16 14:20 DC Adenosine/Sodium Chloride (Adenoscan/Iv Sodium Chloride 0.9% 50ml) 120 ml @ 200 mls/hr 1X ONCE 11/16/16 14:45 11/16/16 15:21 DC 11/16/16 14:45 200 MLS/HR Albuterol Sulfate (Ventolin Neb Soln) 2.5 mg PRN Q6HRS PRN 11/16/16 22:15 11/16/16 22:27 2.5 MG Amiodarone HCl (Cordarone) 200 mg DAILY 11/15/16 17:45 11/18/16 09:00 200 MG Amiodarone HCl 150 mg/Dextrose 103 ml @ 618 mls/hr 1X ONCE 11/14/16 19:00 11/14/16 19:09 DC 11/14/16 18:54 618 MLS/HR Amiodarone HCl/ Dextrose (Cordarone) 518 ml @ 0 mls/hr CONT PRN 11/14/16 19:00 11/15/16 18:09 DC 11/14/16 19:04 33 MLS/HR Amlodipine Besylate (Norvasc) 10 mg DAILY 11/19/16 09:00 Amlodipine Besylate 5 mg 5 mg DAILY 11/18/16 09:00 11/18/16 16:17 DC 11/18/16 09:00 5 MG Aspirin (Children'S Aspirin) 81 mg DAILYWBKFT 11/16/16 08:00 11/18/16 08:00 81 MG Aspirin 81 mg 81 mg DAILYWBKFT 11/15/16 09:15 11/16/16 04:53 DC 11/15/16 10:22 81 MG Atropine Sulfate 0.5 mg 0.5 mg STK-MED ONCE 11/16/16 14:32 11/16/16 14:33 DC Bacitracin/Sodium Chloride (Bacitracin/Iv Sodium Chloride 0.9% 250ml) 250 ml @ 0 mls/hr 1X ONCE 11/17/16 09:00 11/17/16 09:01 DC 11/17/16 11:36 250 MLS/HR Calcium Carbonate/ Glycine (Tums) 500 mg 1X ONCE 11/17/16 04:00 11/17/16 04:01 DC 11/17/16 03:55 500 MG Cefazolin Sodium/ Dextrose (Ancef 2gm Premix) 50 ml @ 100 mls/hr 1X ONCE 11/17/16 18:00 11/17/16 18:29 DC 11/17/16 17:49 100 MLS/HR Clopidogrel Bisulfate (Plavix) 75 mg DAILYWBKFT 11/15/16 08:00 11/18/16 12:49 75 MG Epinephrine (S2 Racepinephrine) 0.5 ml 1X ONCE 11/16/16 23:00 11/16/16 23:01 DC 11/16/16 22:33 0.5 ML Fentanyl Citrate (Fentanyl 2ml Vial) 100 mcg 1X ONCE 11/16/16 14:15 11/16/16 14:16 DC 11/16/16 15:03 100 MCG Fentanyl Citrate 25 mcg 25 mcg PRN Q15MIN PRN 11/14/16 13:30 11/16/16 04:55 DC 11/14/16 13:40 25 MCG Heparin Sodium (Porcine) 2,500 unit 1X ONCE 11/16/16 14:15 11/16/16 14:16 DC 11/16/16 15:05 2,500 UNIT Heparin Sodium (Porcine) 4000 unit 4,000 unit 1X ONCE 11/15/16 09:45 11/15/16 09:46 DC 11/15/16 11:21 4,000 UNIT Heparin Sodium/ Dextrose 500 ml @ 0 mls/hr CONT PRN 11/15/16 09:15 11/17/16 08:28 DC 11/15/16 11:18 19.9 MLS/HR Heparin Sodium/ Sodium Chloride 1,000 unit 1X ONCE 11/16/16 14:15 11/16/16 14:16 DC 11/16/16 15:04 1,000 UNIT Hydralazine HCl 10 mg 10 mg PRN Q4HRS PRN 11/14/16 16:30 11/18/16 19:56 10 MG Info (Do NOT chart on this entry -- for MONITORING) 1 each PRN DAILY PRN 11/16/16 14:15 11/18/16 14:14 DC Iodixanol (Visipaque 320) 100 ml 1X ONCE 11/16/16 14:15 11/16/16 14:16 DC 11/16/16 14:59 98 ML Lidocaine HCl 20 ml 1X ONCE 11/16/16 14:15 11/16/16 14:16 DC 11/16/16 15:01 2 ML Lidocaine HCl 100 mg 100 mg STK-MED ONCE 11/17/16 10:01 11/17/16 10:02 DC Lidocaine/ Epinephrine (Xylocaine 2%-Epi 1:100,000) 20 ml STK-MED ONCE 11/17/16 10:14 11/17/16 10:15 DC Lidocaine/ Epinephrine 20 ml 20 ml 1X ONCE 11/17/16 11:00 11/17/16 11:05 DC 11/17/16 11:36 30 ML Magnesium Sulfate/ Dextrose (Magnesium Sulfate PREMIX 2GM) 50 ml @ 25 mls/hr PRN DAILY PRN 11/18/16 16:15 Metoprolol Tartrate (Lopressor) 25 mg 1X ONCE 11/16/16 16:00 11/16/16 16:01 DC 11/16/16 16:23 25 MG Metoprolol Tartrate 50 mg 50 mg BID 11/17/16 09:00 11/18/16 21:10 50 MG Midazolam HCl (Versed) 2 mg 1X ONCE 11/16/16 14:15 11/16/16 14:16 DC 11/16/16 15:03 3 MG Nitroglycerin (Nitroglycerin) 200 mcg 1X ONCE 11/16/16 14:15 11/16/16 14:16 DC 11/16/16 15:04 200 MCG Ondansetron HCl (Zofran) 4 mg PRN Q8HRS PRN 11/14/16 15:15 11/15/16 15:14 DC Propofol (Diprivan) 0 ml @ As Directed STK-MED ONCE 11/17/16 10:02 11/17/16 10:03 DC Sodium Chloride (Iv Sodium Chloride 0.9% 500ml Bag) 500 ml @ 500 mls/hr 1X ONCE 11/14/16 14:00 11/14/16 14:59 DC 11/14/16 16:02 500 MLS/HR Sodium Chloride (Iv Sodium Chloride 0.9% 1000ml Bag) 1,000 ml @ 75 mls/hr [id number] 11/15/16 11:15 11/19/16 03:12 75 MLS/HR Throat Lozenges (Chloraseptic) 1 spray PRN Q2HR PRN 11/16/16 22:15 11/17/16 00:04 1 SPRAY Verapamil HCl (Verapamil) 2.5 mg 1X ONCE 11/16/16 14:15 11/16/16 14:16 DC 11/16/16 15:04 2.5 MG Lab Laboratory Tests Test 11/19/16 04:00 11/19/16 05:00 Sodium Level 146mmol/L (136-145) Potassium Level 3.9mmol/L (3.5-5.1) Chloride Level 112mmol/L (98-107) Carbon Dioxide Level 23mmol/L (21-32) Anion Gap 11 (6-14) Blood Urea Nitrogen 36mg/dL (8-26) Creatinine 1.7mg/dL (0.7-1.3) Estimated GFR (Cockcroft-Gault) 38.3 Glucose Level 102mg/dL (70-99) Calcium Level 8.7mg/dL (8.5-10.1) Phosphorus Level 3.2mg/dL (2.6-4.7) Magnesium Level 1.9mg/dL (1.8-2.4) Albumin 2.8g/dL (3.4-5.0) Hemoglobin 11.8g/dL (13.0-17.5) GORDO HARRISON MD Nov 19, 2016 07:13
[2016-11-19] MEDS: CLOPIDOGREL BISULFATE 75 MG TABLET PO SCH (08:09)
[2016-11-19] MEDS: AMLODIPINE BESYLATE 10 MG TABLET. PO SCH (08:10)
[2016-11-19] MEDS: METOPROLOL TART IMMED RELEASE 50 MG TABLET. PO SCH ×2 (08:10→20:41)
[2016-11-19] MEDS: AMIODARONE HCL 200 MG TABLET. PO SCH (08:11)
[2016-11-19] MEDS: ASPIRIN CHEWABLE 81 MG TABLET. PO SCH (08:11)
[2016-11-19] MEDS: hydrALAZINE 20 MG/ML VIAL. IVP PRN (08:19)
--- NOTE | 2016-11-19 08:23 | RAD ---
EXAM: Renal sonogram. HISTORY: Renal insufficiency. TECHNIQUE: Sonographic imaging of the kidneys and bladder was performed. COMPARISON: None. FINDINGS: The right kidney measures 11.2 cm [id number] and the left kidney measures 12.5 cm [id number]. There are echogenic foci with posterior shadowing in the right kidney measuring 10 mm and 10 mm, likely nonobstructing stones. There is a 6.1 cm simple appearing cyst within the upper pole the left kidney. There is no hydronephrosis. The bladder is unremarkable. IMPRESSION: 1. Suspected right nephrolithiasis. 2. 6.1 cm simple appearing left renal cyst.
[2016-11-19] MEDS ORDERED: BARIUM SULFATE 40% (APPLE) 148 GM PWD. PO ONE (10:30)
--- NOTE | 2016-11-19 11:07 | RAD ---
EXAM: Video swallow evaluation. HISTORY: Dysphagia. TECHNIQUE: Fluoroscopic imaging was performed in coordination with the department of speech pathology during the oral administration of barium contrast of thin and thick consistencies. No fluoroscopic spot image is obtained. The total fluoroscopy time is 1.1 minute. COMPARISON: None. FINDINGS: There is prevertebral soft tissue prominence. This deviates the airway anteriorly and limits epiglottic motion. There is juan aspiration of thin and thick barium consistency without elicitation of a cough reflex. There is significant contrast residual following swallowing attempts. IMPRESSION: 1. Aspiration of thin and thick consistencies and significant residual following swallowing attempts. 2. Prevertebral soft tissue prominence resulting in anterior deviation of the airway and limited epiglottic motion. The possibility of a prevertebral mass, swelling or fluid collection is not excluded. This can better characterized with a contrast-enhanced neck CT.
--- NOTE | 2016-11-19 11:12 | PDOC ---
GENERAL General: vss and afebrile. awake and alert. still with difficulty swallowing and problems noted with bedside swallow and video swallow to be done today. creatinine down to 1.7 this am. blood pressures elevated with norvasc to start this am and will follow. otherwise same. likely will need snu at mt. Problems: VITAL SIGNS Vital Signs: Vital Signs Date Time Temp Pulse Resp B/P Pulse Ox O2 Delivery O2 Flow Rate FiO2 11/19/16 08:34 98 Room Air 11/19/16 08:19 88 180/81 11/19/16 07:45 98.8 20 98.8 11/18/16 08:00 2.0 I & O I & O Intake and Output 11/19/16 07:00 Intake Total 1720 ml Output Total 1400 ml Balance 320 ml Intake Oral 820 ml IV Total 900 ml Output Urine Total 1400 ml # Bowel Movements 1 ALLERGIES Allergies: Allergies Coded Allergies Type Severity Reaction Last Updated Verified No Known Drug Allergies 11/14/16 No MEDS Medications: Current Medications Medications (Trade) Dose Ordered Sig/Mamta Start Time Stop Time Status Last Admin Dose Admin Acetaminophen (Tylenol) 650 mg PRN Q4HRS PRN 11/16/16 04:53 11/17/16 20:40 650 MG Adenosine (Adenocard) 12 mg 1X ONCE 11/14/16 18:45 11/14/16 18:46 DC Adenosine (Adenoscan) 90 mg STK-MED ONCE 11/16/16 14:19 11/16/16 14:20 DC Adenosine/Sodium Chloride (Adenoscan/Iv Sodium Chloride 0.9% 50ml) 120 ml @ 200 mls/hr 1X ONCE 11/16/16 14:45 11/16/16 15:21 DC 11/16/16 14:45 200 MLS/HR Albuterol Sulfate (Ventolin Neb Soln) 2.5 mg PRN Q6HRS PRN 11/16/16 22:15 11/16/16 22:27 2.5 MG Amiodarone HCl (Cordarone) 200 mg DAILY 11/15/16 17:45 11/19/16 08:11 200 MG Amiodarone HCl 150 mg/Dextrose 103 ml @ 618 mls/hr 1X ONCE 11/14/16 19:00 11/14/16 19:09 DC 11/14/16 18:54 618 MLS/HR Amiodarone HCl/ Dextrose (Cordarone) 518 ml @ 0 mls/hr CONT PRN 11/14/16 19:00 11/15/16 18:09 DC 11/14/16 19:04 33 MLS/HR Amlodipine Besylate (Norvasc) 10 mg DAILY 11/19/16 09:00 11/19/16 08:10 10 MG Amlodipine Besylate 5 mg 5 mg DAILY 11/18/16 09:00 11/18/16 16:17 DC 11/18/16 09:00 5 MG Aspirin (Children'S Aspirin) 81 mg DAILYWBKFT 11/16/16 08:00 11/19/16 08:11 81 MG Aspirin 81 mg 81 mg DAILYWBKFT 11/15/16 09:15 11/16/16 04:53 DC 11/15/16 10:22 81 MG Atropine Sulfate 0.5 mg 0.5 mg STK-MED ONCE 11/16/16 14:32 11/16/16 14:33 DC Bacitracin/Sodium Chloride (Bacitracin/Iv Sodium Chloride 0.9% 250ml) 250 ml @ 0 mls/hr 1X ONCE 11/17/16 09:00 11/17/16 09:01 DC 11/17/16 11:36 250 MLS/HR Barium Sulfate (Varibar Thin Liquid Apple) 148 gm 1X ONCE 11/19/16 10:30 11/19/16 10:31 DC 11/19/16 11:02 148 GM Calcium Carbonate/ Glycine (Tums) 500 mg 1X ONCE 11/17/16 04:00 11/17/16 04:01 DC 11/17/16 03:55 500 MG Cefazolin Sodium/ Dextrose (Ancef 2gm Premix) 50 ml @ 100 mls/hr 1X ONCE 11/17/16 18:00 11/17/16 18:29 DC 11/17/16 17:49 100 MLS/HR Clopidogrel Bisulfate (Plavix) 75 mg DAILYWBKFT 11/15/16 08:00 11/19/16 08:09 75 MG Epinephrine (S2 Racepinephrine) 0.5 ml 1X ONCE 11/16/16 23:00 11/16/16 23:01 DC 11/16/16 22:33 0.5 ML Fentanyl Citrate (Fentanyl 2ml Vial) 100 mcg 1X ONCE 11/16/16 14:15 11/16/16 14:16 DC 11/16/16 15:03 100 MCG Fentanyl Citrate 25 mcg 25 mcg PRN Q15MIN PRN 11/14/16 13:30 11/16/16 04:55 DC 11/14/16 13:40 25 MCG Heparin Sodium (Porcine) 2,500 unit 1X ONCE 11/16/16 14:15 11/16/16 14:16 DC 11/16/16 15:05 2,500 UNIT Heparin Sodium (Porcine) 4000 unit 4,000 unit 1X ONCE 11/15/16 09:45 11/15/16 09:46 DC 11/15/16 11:21 4,000 UNIT Heparin Sodium/ Dextrose 500 ml @ 0 mls/hr CONT PRN 11/15/16 09:15 11/17/16 08:28 DC 11/15/16 11:18 19.9 MLS/HR Heparin Sodium/ Sodium Chloride 1,000 unit 1X ONCE 11/16/16 14:15 11/16/16 14:16 DC 11/16/16 15:04 1,000 UNIT Hydralazine HCl 10 mg 10 mg PRN Q4HRS PRN 11/14/16 16:30 11/19/16 08:19 10 MG Info (Do NOT chart on this entry -- for MONITORING) 1 each PRN DAILY PRN 11/16/16 14:15 11/18/16 14:14 DC Iodixanol (Visipaque 320) 100 ml 1X ONCE 11/16/16 14:15 11/16/16 14:16 DC 11/16/16 14:59 98 ML Lidocaine HCl 20 ml 1X ONCE 11/16/16 14:15 11/16/16 14:16 DC 11/16/16 15:01 2 ML Lidocaine HCl 100 mg 100 mg STK-MED ONCE 11/17/16 10:01 11/17/16 10:02 DC Lidocaine/ Epinephrine (Xylocaine 2%-Epi 1:100,000) 20 ml STK-MED ONCE 11/17/16 10:14 11/17/16 10:15 DC Lidocaine/ Epinephrine 20 ml 20 ml 1X ONCE 11/17/16 11:00 11/17/16 11:05 DC 11/17/16 11:36 30 ML Magnesium Sulfate/ Dextrose (Magnesium Sulfate PREMIX 2GM) 50 ml @ 25 mls/hr PRN DAILY PRN 11/18/16 16:15 Metoprolol Tartrate (Lopressor) 25 mg 1X ONCE 11/16/16 16:00 11/16/16 16:01 DC 11/16/16 16:23 25 MG Metoprolol Tartrate 50 mg 50 mg BID 11/17/16 09:00 11/19/16 08:10 50 MG Midazolam HCl (Versed) 2 mg 1X ONCE 11/16/16 14:15 11/16/16 14:16 DC 11/16/16 15:03 3 MG Nitroglycerin (Nitroglycerin) 200 mcg 1X ONCE 11/16/16 14:15 11/16/16 14:16 DC 11/16/16 15:04 200 MCG Ondansetron HCl (Zofran) 4 mg PRN Q8HRS PRN 11/14/16 15:15 11/15/16 15:14 DC Propofol (Diprivan) 0 ml @ As Directed STK-MED ONCE 11/17/16 10:02 11/17/16 10:03 DC Sodium Chloride (Iv Sodium Chloride 0.9% 500ml Bag) 500 ml @ 500 mls/hr 1X ONCE 11/14/16 14:00 11/14/16 14:59 DC 11/14/16 16:02 500 MLS/HR Sodium Chloride (Iv Sodium Chloride 0.9% 1000ml Bag) 1,000 ml @ 75 mls/hr [id number] 11/15/16 11:15 11/19/16 03:12 75 MLS/HR Throat Lozenges (Chloraseptic) 1 spray PRN Q2HR PRN 11/16/16 22:15 11/17/16 00:04 1 SPRAY Verapamil HCl (Verapamil) 2.5 mg 1X ONCE 11/16/16 14:15 11/16/16 14:16 DC 11/16/16 15:04 2.5 MG LAB Lab: Laboratory Tests Test 11/19/16 04:00 11/19/16 05:00 Sodium Level 146mmol/L (136-145) Potassium Level 3.9mmol/L (3.5-5.1) Chloride Level 112mmol/L (98-107) Carbon Dioxide Level 23mmol/L (21-32) Anion Gap 11 (6-14) Blood Urea Nitrogen 36mg/dL (8-26) Creatinine 1.7mg/dL (0.7-1.3) Estimated GFR (Cockcroft-Gault) 38.3 Glucose Level 102mg/dL (70-99) Calcium Level 8.7mg/dL (8.5-10.1) Phosphorus Level 3.2mg/dL (2.6-4.7) Magnesium Level 1.9mg/dL (1.8-2.4) Albumin 2.8g/dL (3.4-5.0) Hemoglobin 11.8g/dL (13.0-17.5) LAKHWINDER AMAYA MD Nov 19, 2016 11:12
[2016-11-19] MEDS ORDERED: IOHEXOL 300 MG/ML 75 ML VIAL IV ONE (13:45)
[2016-11-19] MEDS ORDERED: CONTRAST GIVEN MC PRN (14:00)
[2016-11-19 15:11] LABS: BILIRUBIN,URINE NEGATIVE (NEG); GLUCOSE,URINE NEGATIVE (NEG); NITRITE,URINE NEGATIVE (NEG); PH,URINE 5.5; PROTEIN,URINE >=300 mg/dL (NEG-TRACE); UROBILINOGEN,URINE 0.2 mg/dL (0.2 mg/dL)
[2016-11-19 15:22] LABS: BACTERIA,URINE 0 /HPF (0-FEW); RBC,URINE 0 /HPF (0-2)
[2016-11-19] MEDS: NITROGLYCERIN OINT 1 GM PACKET. TP SCH ×2 (17:43→18:00)
[2016-11-20] VITALS (7 sets, daily range): BP systolic 126–189; BP diastolic 68–93
[2016-11-20] MEDS: NITROGLYCERIN OINT 1 GM PACKET. TP SCH ×2 (00:42→06:16)
[2016-11-20] MEDS: hydrALAZINE 20 MG/ML VIAL. IVP PRN ×3 (01:04→21:13)
[2016-11-20 04:24] LABS: ALBUMIN 2.8 g/dL (3.4-5.0); CALCIUM 8.8 mg/dL (8.5-10.1); CREATININE 1.6 mg/dL (0.7-1.3); GFR 41.1; PHOSPHORUS 3.6 mg/dL (2.6-4.7); POTASSIUM 3.9 mmol/L (3.5-5.1)
[2016-11-20] MEDS: IV NORMAL SALINE 1000ML BAG 1,000 ML IV SCH (06:27)
[2016-11-20] MEDS: ASPIRIN CHEWABLE 81 MG TABLET. PO SCH (08:00)
[2016-11-20] MEDS: CLOPIDOGREL BISULFATE 75 MG TABLET PO SCH (08:00)
--- NOTE | 2016-11-20 08:01 | RAD ---
CT of the neck with contrast, 11/19/2016: History: Soft tissue prominence on the video dysphasia study Multidetector CT imaging was performed following an IV bolus injection of iodinated contrast material. There is extensive prevertebral soft tissue thickening centered at the midline extending from the C2-3 level down to the cervicothoracic junction. This was not present on the CT spine radiographs from 11/14/2016. The esophagus cannot be delineated through this region. There does appear to be mild circumferential mural thickening of the esophagus in its visualized portion in the upper chest. A small amount of radiopaque material in the upper thoracic esophagus is presumably residue from a recent video dysphasia exam. No discrete retropharyngeal fluid collection is seen to suggest a drainable abscess. The larynx and airway are displaced anteriorly by this process. No intrinsic laryngeal abnormality is seen. The trachea is not narrowed. The tonsillar regions are unremarkable. No cervical adenopathy is seen. There is moderate calcific plaquing at both carotid bifurcations. The parotid glands are unremarkable. The left submandibular gland is atrophic or surgically absent. No fluid is identified in the visualized paranasal sinuses. The thyroid gland contains a 13 mm cystic appearing nodule laterally. There is a small calcification in the right lobe of the thyroid. Moderate multilevel degenerative change is present in the cervical spine. No destructive bony lesion is seen. There appears to be a small scalp hematoma in the right frontal region. IMPRESSION: 1. Moderate retropharyngeal prevertebral soft tissue thickening at the midline, not present on 11/14/2016. Diagnostic considerations include an inflammatory process or hematoma. No discrete abscess is delineated. Underlying neoplasm cannot be excluded. 2. Mild associated mural thickening in the upper thoracic esophagus. PQRS Compliance Statement: One or more of the following individualized dose reduction techniques were utilized for this examination: 1. Automated exposure control 2. Adjustment of the mA and/or kV according to patient size 3. Use of iterative reconstruction technique
[2016-11-20] MEDS: AMLODIPINE BESYLATE 10 MG TABLET. PO SCH (09:00)
[2016-11-20] MEDS: AMIODARONE HCL 200 MG TABLET. PO SCH (09:00)
[2016-11-20] MEDS: METOPROLOL TART IMMED RELEASE 50 MG TABLET. PO SCH (09:00)
[2016-11-20] MEDS ORDERED: AMIODARONE 900 MG in IV DEXTROSE 5% 500 ML IV ONE (09:15)
--- NOTE | 2016-11-20 10:50 | PDOC ---
SUBJECTIVE ROS WARNER Doing ok , looks a little better overall CVS: no Orthopnea, no CP RESP: no SOB, no COLÓN GI: no Nausea, no Vomiting : no Dysuria, occ Urgency OBJECTIVE Vital Signs Vital Signs Date Time Temp Pulse Resp B/P Pulse Ox O2 Delivery O2 Flow Rate FiO2 11/20/16 07:58 98.4 102 14 161/89 94 Room Air 98.4 I & 0 Intake and Output 11/20/16 07:00 Intake Total 930 ml Output Total 1050 ml Balance -120 ml Intake Oral 0 ml IV Total 930 ml Output Urine Total 1050 ml PHYSICAL EXAM Physical Exam GEN: Awake, Oriented x 2, In no distress EYES: Vision Unchanged, Conjunctiva Normal; nya-orbital ecchymosis EN: No EN Drainage, Mucous Membranes moist NECK: no JVD, no JVP, Supple, no Thyromegaly CVS: S1S2, + Murmur, No Gallop, No Rub,no Edema RESP: no Rales, no Rhonchi,no Acc. Muscle Use GI: BS + ve, NO Bruit, Non Tender, Non Distended : no CVA tenderness, no Suprapubic Tenderness DIAGNOSIS/ASSESSMENT Assessment & Plan ARF/ ATN: ? CAN. Not sure if Creat of 0.8 was true normal however Creat is trending down now so will see where he settles (Off of CAITLYN-i) Current fluid and E-lyte status does not necessitate emergent need for dialysis. Will re- evaluate for dialysis in the am. ? CKD III - Creat was ^ when he came in too - ? Due to HCTZ + CAITLYN-i (currently off) HTN: Current BP meds as held due to NPO status. See orders for changes. ^ed Na - currently NPO for swallow eval Proteinuria - Quantitate with ratio; suspect worse after holding CAITLYN-i Marginal Anemia - watch trend ^Na - change IVF to PPN COMMENT/RELEVANT DATA Meds Current Medications Medications (Trade) Dose Ordered Sig/Ammta Start Time Stop Time Status Last Admin Dose Admin Acetaminophen (Tylenol) 650 mg PRN Q4HRS PRN 11/16/16 04:53 11/17/16 20:40 650 MG Adenosine (Adenocard) 12 mg 1X ONCE 11/14/16 18:45 11/14/16 18:46 DC Adenosine (Adenoscan) 90 mg STK-MED ONCE 11/16/16 14:19 11/16/16 14:20 DC Adenosine/Sodium Chloride (Adenoscan/Iv Sodium Chloride 0.9% 50ml) 120 ml @ 200 mls/hr 1X ONCE 11/16/16 14:45 11/16/16 15:21 DC 11/16/16 14:45 200 MLS/HR Albuterol Sulfate (Ventolin Neb Soln) 2.5 mg PRN Q6HRS PRN 11/16/16 22:15 11/16/16 22:27 2.5 MG Amiodarone HCl (Cordarone) 200 mg DAILY 11/15/16 17:45 11/19/16 08:11 200 MG Amiodarone HCl/ Dextrose (Cordarone) 518 ml @ 0 mls/hr 1X ONCE 11/20/16 09:15 11/20/16 09:22 DC Amlodipine Besylate (Norvasc) 10 mg DAILY 11/19/16 09:00 11/19/16 08:10 10 MG Amlodipine Besylate 5 mg 5 mg DAILY 11/18/16 09:00 11/18/16 16:17 DC 11/18/16 09:00 5 MG Aspirin (Children'S Aspirin) 81 mg DAILYWBKFT 11/16/16 08:00 11/19/16 08:11 81 MG Aspirin 81 mg 81 mg DAILYWBKFT 11/15/16 09:15 11/16/16 04:53 DC 11/15/16 10:22 81 MG Atropine Sulfate 0.5 mg 0.5 mg STK-MED ONCE 11/16/16 14:32 11/16/16 14:33 DC Bacitracin/Sodium Chloride (Bacitracin/Iv Sodium Chloride 0.9% 250ml) 250 ml @ 0 mls/hr 1X ONCE 11/17/16 09:00 11/17/16 09:01 DC 11/17/16 11:36 250 MLS/HR Barium Sulfate (Varibar Thin Liquid Apple) 148 gm 1X ONCE 11/19/16 10:30 11/19/16 10:31 DC 11/19/16 11:02 148 GM Calcium Carbonate/ Glycine (Tums) 500 mg 1X ONCE 11/17/16 04:00 11/17/16 04:01 DC 11/17/16 03:55 500 MG Cefazolin Sodium/ Dextrose (Ancef 2gm Premix) 50 ml @ 100 mls/hr 1X ONCE 11/17/16 18:00 11/17/16 18:29 DC 11/17/16 17:49 100 MLS/HR Clopidogrel Bisulfate (Plavix) 75 mg DAILYWBKFT 11/15/16 08:00 11/19/16 08:09 75 MG Epinephrine (S2 Racepinephrine) 0.5 ml 1X ONCE 11/16/16 23:00 11/16/16 23:01 DC 11/16/16 22:33 0.5 ML Fentanyl Citrate (Fentanyl 2ml Vial) 100 mcg 1X ONCE 11/16/16 14:15 11/16/16 14:16 DC 11/16/16 15:03 100 MCG Fentanyl Citrate 25 mcg 25 mcg PRN Q15MIN PRN 11/14/16 13:30 11/16/16 04:55 DC 11/14/16 13:40 25 MCG Heparin Sodium (Porcine) 2,500 unit 1X ONCE 11/16/16 14:15 11/16/16 14:16 DC 11/16/16 15:05 2,500 UNIT Heparin Sodium (Porcine) 4000 unit 4,000 unit 1X ONCE 11/15/16 09:45 11/15/16 09:46 DC 11/15/16 11:21 4,000 UNIT Heparin Sodium/ Dextrose 500 ml @ 0 mls/hr CONT PRN 11/15/16 09:15 11/17/16 08:28 DC 11/15/16 11:18 19.9 MLS/HR Heparin Sodium/ Sodium Chloride 1,000 unit 1X ONCE 11/16/16 14:15 11/16/16 14:16 DC 11/16/16 15:04 1,000 UNIT Hydralazine HCl (Apresoline) 10 mg PRN Q4HRS PRN 11/14/16 16:30 11/20/16 06:21 10 MG Info (Do NOT chart on this entry -- for MONITORING) 1 each PRN DAILY PRN 11/16/16 14:15 11/18/16 14:14 DC Info 1 each 1 each PRN DAILY PRN 11/19/16 14:00 11/21/16 13:59 Iodixanol (Visipaque 320) 100 ml 1X ONCE 11/16/16 14:15 11/16/16 14:16 DC 11/16/16 14:59 98 ML Iohexol (Omnipaque 300 Mg/ml) 75 ml 1X ONCE 11/19/16 13:45 11/19/16 13:46 DC 11/19/16 13:45 75 ML Lidocaine HCl 20 ml 1X ONCE 11/16/16 14:15 11/16/16 14:16 DC 11/16/16 15:01 2 ML Lidocaine HCl 100 mg 100 mg STK-MED ONCE 11/17/16 10:01 11/17/16 10:02 DC Lidocaine/ Epinephrine (Xylocaine 2%-Epi 1:100,000) 20 ml STK-MED ONCE 11/17/16 10:14 11/17/16 10:15 DC Lidocaine/ Epinephrine 20 ml 20 ml 1X ONCE 11/17/16 11:00 11/17/16 11:05 DC 11/17/16 11:36 30 ML Magnesium Sulfate/ Dextrose (Magnesium Sulfate PREMIX 2GM) 50 ml @ 25 mls/hr PRN DAILY PRN 11/18/16 16:15 Metoprolol Tartrate (Lopressor) 5 mg Q6H 11/20/16 10:00 Metoprolol Tartrate 50 mg 50 mg BID 11/17/16 09:00 11/20/16 09:21 DC 11/19/16 08:10 50 MG Midazolam HCl (Versed) 2 mg 1X ONCE 11/16/16 14:15 11/16/16 14:16 DC 11/16/16 15:03 3 MG Nitroglycerin (Nitro-Bid Oint) 1.5 inch Q6HRS 11/19/16 13:00 11/20/16 06:16 1.5 INCH Nitroglycerin (Nitroglycerin) 200 mcg 1X ONCE 11/16/16 14:15 11/16/16 14:16 DC 11/16/16 15:04 200 MCG Ondansetron HCl (Zofran) 4 mg PRN Q8HRS PRN 11/14/16 15:15 11/15/16 15:14 DC Propofol (Diprivan) 0 ml @ As Directed STK-MED ONCE 11/17/16 10:02 11/17/16 10:03 DC Sodium Chloride (Iv Sodium Chloride 0.9% 500ml Bag) 500 ml @ 500 mls/hr 1X ONCE 11/14/16 14:00 11/14/16 14:59 DC 11/14/16 16:02 500 MLS/HR Sodium Chloride (Iv Sodium Chloride 0.9% 1000ml Bag) 1,000 ml @ 75 mls/hr [id number] 11/15/16 11:15 11/20/16 06:27 75 MLS/HR Throat Lozenges (Chloraseptic) 1 spray PRN Q2HR PRN 11/16/16 22:15 11/17/16 00:04 1 SPRAY Verapamil HCl (Verapamil) 2.5 mg 1X ONCE 11/16/16 14:15 11/16/16 14:16 DC 11/16/16 15:04 2.5 MG Lab Laboratory Tests Test 11/19/16 13:17 11/20/16 03:40 Urine Collection Type Unknown Urine Color Yellow Urine Clarity Clear Urine pH 5.5 Urine Specific [place] 1.020 Urine Protein >=300mg/dL (NEG-TRACE) Urine Glucose (UA) Negativemg/dL (NEG) Urine Ketones (Stick) Tracemg/dL (NEG) Urine Blood Negative (NEG) Urine Nitrite Negative (NEG) Urine Bilirubin Negative (NEG) Urine Urobilinogen Dipstick 0.2mg/dL (0.2 mg/dL) Urine Leukocyte Esterase Small (NEG) Urine RBC 0/HPF (0-2) Urine WBC 5-10/HPF (0-4) Urine Squamous Epithelial Cells None/LPF Urine Bacteria 0/HPF (0-FEW) Urine Hyaline Casts Few/HPF Urine Mucus Marked/LPF Sodium Level 146mmol/L (136-145) Potassium Level 3.9mmol/L (3.5-5.1) Chloride Level 112mmol/L (98-107) Carbon Dioxide Level 21mmol/L (21-32) Anion Gap 13 (6-14) Blood Urea Nitrogen 36mg/dL (8-26) Creatinine 1.6mg/dL (0.7-1.3) Estimated GFR (Cockcroft-Gault) 41.1 Glucose Level 96mg/dL (70-99) Calcium Level 8.8mg/dL (8.5-10.1) Phosphorus Level 3.6mg/dL (2.6-4.7) Magnesium Level 2.0mg/dL (1.8-2.4) Albumin 2.8g/dL (3.4-5.0) GORDO HARRISON MD Nov 20, 2016 10:50
[2016-11-20] MEDS: METOPROLOL TARTRATE 5 MG/5 ML VIAL. IVP SCH ×2 (11:14→18:38)
[2016-11-20] MEDS: ASPIRIN 300 MG SUPP.RECT PR SCH (13:11)
[2016-11-20] MEDS: AA 4.25%/CALCIUM/LYTES/D5W 1,000 ML IV SCH (13:11)
--- NOTE | 2016-11-20 14:50 | PDOC ---
CARDIO Progress Notes Date and Time Date of Service 11/20/2016 Time of Evaluation 1433 Subjective Subjective: Other (sleeping - did not arouse) Vitals Vitals Vital Signs Date Time Temp Pulse Resp B/P Pulse Ox O2 Delivery O2 Flow Rate FiO2 11/20/16 11:59 97.5 88 19 169/68 94 Room Air 97.5 Weight Weight [ ] Input and Output Intake and Output Intake and Output 11/20/16 06:59 Intake Total 930 ml Output Total 1050 ml Balance -120 ml Intake Oral 0 ml IV Total 930 ml Output Urine Total 1050 ml Laboratory Labs Laboratory Tests Test 11/20/16 03:40 Sodium Level 146mmol/L (136-145) Potassium Level 3.9mmol/L (3.5-5.1) Chloride Level 112mmol/L (98-107) Carbon Dioxide Level 21mmol/L (21-32) Anion Gap 13 (6-14) Blood Urea Nitrogen 36mg/dL (8-26) Creatinine 1.6mg/dL (0.7-1.3) Estimated GFR (Cockcroft-Gault) 41.1 Glucose Level 96mg/dL (70-99) Calcium Level 8.8mg/dL (8.5-10.1) Phosphorus Level 3.6mg/dL (2.6-4.7) Magnesium Level 2.0mg/dL (1.8-2.4) Albumin 2.8g/dL (3.4-5.0) Physical Exam Chest: Other (left pectoral incision c/d/i - no evidence of erythema, edema, ecchymosis; steri-strips intact) LUNGS: Clear to Auscultation Heart: S1S2, RRR (SR, episode of sutained VT yesterday), murmurs (2/6 systolic murmur to LLS border) Abdomen: Soft N/T Extremities: Other (1+ bilateral LE edema) Neurology: alert, oriented, follow commands Diagnostic Tests Chest X-ray: Other (no pneumothorax) Assessment Assessment 1. Sustained VT; symptomatic s/p dual chamber Biotronik ICD for prevention of SCD anti-arrhythmic therapy converted to IV as currently NPO after failed video swallow f/u for wound check in one week and 3 months for ICD interrogation in office 2. CAD PCI/ORQUIDEA 11/2015 to OM1 and LCx cardiac cath demonstrating patent stents hold clopidogrel as NPO and convert ASA to suppository 3. chronic diastolic CHF, preserved LVEF of 55-60% compensated with medical management BB now IV while NPO 4. HTN control with meds 5. hyperlipidemia LDLs controlled with statin therapy 6. dysphagia failed video swallow CT scan demonstrating soft tissue swelling middle of the neck currently NPO RICHARD CONSTANTINO APRN Nov 20, 2016 14:50
--- NOTE | 2016-11-20 16:35 | PDOC ---
GENERAL General: vss and afebrile. awake and alert. throat less sore and not quite as hoarse. failed swallow eval and has prevertebral swelling on CT that is most certainly a hematoma as he relates this beginning after he was suctioned. with slow improvement in pain and hoarseness will watch for now as no ENT on staff to look at. Will start TPN while we wait for clearing of throat and could conceivably go to [facility] if they can take on TPN. Cardiac guerra stable. Problems: VITAL SIGNS Vital Signs: Vital Signs Date Time Temp Pulse Resp B/P Pulse Ox O2 Delivery O2 Flow Rate FiO2 11/20/16 11:59 97.5 88 19 169/68 94 Room Air 97.5 I & O I & O Intake and Output 11/20/16 06:59 Intake Total 930 ml Output Total 1050 ml Balance -120 ml Intake Oral 0 ml IV Total 930 ml Output Urine Total 1050 ml ALLERGIES Allergies: Allergies Coded Allergies Type Severity Reaction Last Updated Verified No Known Drug Allergies 11/14/16 No MEDS Medications: Current Medications Medications (Trade) Dose Ordered Sig/Mamta Start Time Stop Time Status Last Admin Dose Admin Acetaminophen (Tylenol) 650 mg PRN Q4HRS PRN 11/16/16 04:53 11/17/16 20:40 650 MG Adenosine (Adenocard) 12 mg 1X ONCE 11/14/16 18:45 11/14/16 18:46 DC Adenosine (Adenoscan) 90 mg STK-MED ONCE 11/16/16 14:19 11/16/16 14:20 DC Adenosine/Sodium Chloride (Adenoscan/Iv Sodium Chloride 0.9% 50ml) 120 ml @ 200 mls/hr 1X ONCE 11/16/16 14:45 11/16/16 15:21 DC 11/16/16 14:45 200 MLS/HR Albuterol Sulfate (Ventolin Neb Soln) 2.5 mg PRN Q6HRS PRN 11/16/16 22:15 11/16/16 22:27 2.5 MG Amino Acids/ Electrolytes/ Dextrose (Clinimix E 4.25%-5% Solution) 1,000 ml @ 80 mls/hr [id number] 11/20/16 11:00 11/20/16 13:11 80 MLS/HR Amiodarone HCl (Cordarone) 200 mg DAILY 11/15/16 17:45 11/20/16 10:50 DC 11/19/16 08:11 200 MG Amiodarone HCl/ Dextrose (Cordarone) 518 ml @ 0 mls/hr 1X ONCE 11/20/16 09:15 11/20/16 09:22 DC 11/20/16 11:18 0 MLS/HR Amlodipine Besylate (Norvasc) 10 mg DAILY 11/19/16 09:00 11/19/16 08:10 10 MG Amlodipine Besylate 5 mg 5 mg DAILY 11/18/16 09:00 11/18/16 16:17 DC 11/18/16 09:00 5 MG Aspirin (Aspirin) 300 mg DAILY 11/20/16 11:00 11/20/16 13:11 300 MG Aspirin (Children'S Aspirin) 81 mg [id number] 11/16/16 08:00 11/20/16 10:50 DC 11/19/16 08:11 81 MG Aspirin 81 mg 81 mg [id number] 11/15/16 09:15 11/16/16 04:53 DC 11/15/16 10:22 81 MG Atropine Sulfate 0.5 mg 0.5 mg STK-MED ONCE 11/16/16 14:32 11/16/16 14:33 DC Bacitracin/Sodium Chloride (Bacitracin/Iv Sodium Chloride 0.9% 250ml) 250 ml @ 0 mls/hr 1X ONCE 11/17/16 09:00 11/17/16 09:01 DC 11/17/16 11:36 250 MLS/HR Barium Sulfate (Varibar Thin Liquid Apple) 148 gm 1X ONCE 11/19/16 10:30 11/19/16 10:31 DC 11/19/16 11:02 148 GM Calcium Carbonate/ Glycine (Tums) 500 mg 1X ONCE 11/17/16 04:00 11/17/16 04:01 DC 11/17/16 03:55 500 MG Cefazolin Sodium/ Dextrose (Ancef 2gm Premix) 50 ml @ 100 mls/hr 1X ONCE 11/17/16 18:00 11/17/16 18:29 DC 11/17/16 17:49 100 MLS/HR Clopidogrel Bisulfate (Plavix) 75 mg [id number] 11/15/16 08:00 Future Hold 11/19/16 08:09 75 MG Epinephrine (S2 Racepinephrine) 0.5 ml 1X ONCE 11/16/16 23:00 11/16/16 23:01 DC 11/16/16 22:33 0.5 ML Fentanyl Citrate (Fentanyl 2ml Vial) 100 mcg 1X ONCE 11/16/16 14:15 11/16/16 14:16 DC 11/16/16 15:03 100 MCG Fentanyl Citrate 25 mcg 25 mcg PRN Q15MIN PRN 11/14/16 13:30 11/16/16 04:55 DC 11/14/16 13:40 25 MCG Heparin Sodium (Porcine) 2,500 unit 1X ONCE 11/16/16 14:15 11/16/16 14:16 DC 11/16/16 15:05 2,500 UNIT Heparin Sodium (Porcine) 4000 unit 4,000 unit 1X ONCE 11/15/16 09:45 11/15/16 09:46 DC 11/15/16 11:21 4,000 UNIT Heparin Sodium/ Dextrose 500 ml @ 0 mls/hr CONT PRN 11/15/16 09:15 11/17/16 08:28 DC 11/15/16 11:18 19.9 MLS/HR Heparin Sodium/ Sodium Chloride 1,000 unit 1X ONCE 11/16/16 14:15 11/16/16 14:16 DC 11/16/16 15:04 1,000 UNIT Hydralazine HCl (Apresoline) 10 mg PRN Q4HRS PRN 11/14/16 16:30 11/20/16 10:50 DC 11/20/16 06:21 10 MG Hydralazine HCl 20 mg 20 mg PRN Q4HRS PRN 11/20/16 10:45 Info (Do NOT chart on this entry -- for MONITORING) 1 each PRN DAILY PRN 11/16/16 14:15 11/18/16 14:14 DC Info 1 each 1 each PRN DAILY PRN 11/19/16 14:00 11/21/16 13:59 Iodixanol (Visipaque 320) 100 ml 1X ONCE 11/16/16 14:15 11/16/16 14:16 DC 11/16/16 14:59 98 ML Iohexol (Omnipaque 300 Mg/ml) 75 ml 1X ONCE 11/19/16 13:45 11/19/16 13:46 DC 11/19/16 13:45 75 ML Lidocaine HCl 20 ml 1X ONCE 11/16/16 14:15 11/16/16 14:16 DC 11/16/16 15:01 2 ML Lidocaine HCl 100 mg 100 mg STK-MED ONCE 11/17/16 10:01 11/17/16 10:02 DC Lidocaine/ Epinephrine (Xylocaine 2%-Epi 1:100,000) 20 ml STK-MED ONCE 11/17/16 10:14 11/17/16 10:15 DC Lidocaine/ Epinephrine 20 ml 20 ml 1X ONCE 11/17/16 11:00 11/17/16 11:05 DC 11/17/16 11:36 30 ML Magnesium Sulfate/ Dextrose (Magnesium Sulfate PREMIX 2GM) 50 ml @ 25 mls/hr PRN DAILY PRN 11/18/16 16:15 Metoprolol Tartrate (Lopressor) 5 mg Q6H 11/20/16 10:00 11/20/16 11:14 5 MG Metoprolol Tartrate 50 mg 50 mg BID 11/17/16 09:00 11/20/16 09:21 DC 11/19/16 08:10 50 MG Midazolam HCl (Versed) 2 mg 1X ONCE 11/16/16 14:15 11/16/16 14:16 DC 11/16/16 15:03 3 MG Nitroglycerin (Nitro-Bid Oint) 1.5 inch Q6HRS 11/19/16 13:00 11/20/16 10:50 DC 11/20/16 06:16 1.5 INCH Nitroglycerin (Nitroglycerin) 200 mcg 1X ONCE 11/16/16 14:15 11/16/16 14:16 DC 11/16/16 15:04 200 MCG Ondansetron HCl (Zofran) 4 mg PRN Q8HRS PRN 11/14/16 15:15 11/15/16 15:14 DC Propofol (Diprivan) 0 ml @ As Directed STK-MED ONCE 11/17/16 10:02 11/17/16 10:03 DC Sodium Chloride (Iv Sodium Chloride 0.9% 500ml Bag) 500 ml @ 500 mls/hr 1X ONCE 11/14/16 14:00 11/14/16 14:59 DC 11/14/16 16:02 500 MLS/HR Sodium Chloride (Iv Sodium Chloride 0.9% 1000ml Bag) 1,000 ml @ 75 mls/hr [id number] 11/15/16 11:15 11/20/16 10:50 DC 11/20/16 06:27 75 MLS/HR Throat Lozenges (Chloraseptic) 1 spray PRN Q2HR PRN 11/16/16 22:15 11/17/16 00:04 1 SPRAY Verapamil HCl (Verapamil) 2.5 mg 1X ONCE 11/16/16 14:15 11/16/16 14:16 DC 11/16/16 15:04 2.5 MG LAB Lab: Laboratory Tests Test 11/20/16 03:40 Sodium Level 146mmol/L (136-145) Potassium Level 3.9mmol/L (3.5-5.1) Chloride Level 112mmol/L (98-107) Carbon Dioxide Level 21mmol/L (21-32) Anion Gap 13 (6-14) Blood Urea Nitrogen 36mg/dL (8-26) Creatinine 1.6mg/dL (0.7-1.3) Estimated GFR (Cockcroft-Gault) 41.1 Glucose Level 96mg/dL (70-99) Calcium Level 8.8mg/dL (8.5-10.1) Phosphorus Level 3.6mg/dL (2.6-4.7) Magnesium Level 2.0mg/dL (1.8-2.4) Albumin 2.8g/dL (3.4-5.0) LAKHWINDER AMAYA MD Nov 20, 2016 16:35
[2016-11-20] MEDS ORDERED: LIDOCAINE 1% / SOD BICARB 8.4% 20 ML VIAL. IJ ONE ×2 (16:43→17:00)
--- NOTE | 2016-11-20 17:22 | PDOC ---
Exam Dental Prosthetist Dental Prosthetist Deshawn Mortgage Advisor Mortgage Advisor Omid Kim Pre-Procedure Diagnosis Pre-Procedure Diagnosis 86 YO male with cervical prevertebral soft tissue fullness, with dysphagia. Picc requested for TPN. Post-Procedure Diagnosis Post-Procedure Diagnosis Same Procedure Performed Procedure Performed Sono/fluoro guided Power Picc insertion Type of Anesthesia Type of Anesthesia Local Estimated Blood Loss EBL: Minimal Drain/Tubes Drains/Tubes Right basilic vein 5F 2L 44cm Power Picc Condition of Patient Condition of Patient Stable. No apparent complication. Disposition Disposition From IR return to [facility]. F/u with Dr Appl. RANGEL to use Power Picc. Full report to follow. KELLI FRANK MD Nov 20, 2016 17:22
[2016-11-20 18:11] LABS: TOTAL PROTEIN CREATININE RATIO >47850 mg/g creat (0-200); UR PROTEIN RD 191.4 mg/dL (Not Estab.)
[2016-11-21] MEDS: METOPROLOL TARTRATE 5 MG/5 ML VIAL. IVP SCH ×5 (00:10→21:39)
[2016-11-21] MEDS: AA 4.25%/CALCIUM/LYTES/D5W 1,000 ML IV SCH ×3 (03:04→17:00)
[2016-11-21 03:20] VITALS: BP 173/65
[2016-11-21] MEDS: hydrALAZINE 20 MG/ML VIAL. IVP PRN ×2 (04:56→11:31)
[2016-11-21 05:40] LABS: ALBUMIN 2.6 g/dL (3.4-5.0); CALCIUM 8.7 mg/dL (8.5-10.1); CREATININE 1.5 mg/dL (0.7-1.3); GFR 44.3; PHOSPHORUS 3.5 mg/dL (2.6-4.7)
[2016-11-21 06:01] VITALS: BP 140/76
--- NOTE | 2016-11-21 06:46 | RAD ---
Ultrasound and fluoro guided power PICC placement Indication: 86-year-old male with cervical prevertebral soft tissue fullness. Failed swallowing test. PICC requested for TPN. Fluoro time: 0.8 minutes Kerma-Area Product: 3 Gycm2 Anesthesia: Local only Sterility: All elements of maximal sterile barrier technique were utilized, including cap, mask, sterile gown, sterile gloves, large sterile sheet, appropriate hand hygiene, and 2% chlorhexidine for cutaneous antisepsis Procedure: Informed consent was obtained from the patient. He was placed supine on the angiography table. Preliminary ultrasound examination of right upper arm revealed wide patency of right basilic vein, which was documented with a hard copy ultrasound image. Right upper arm was then prepped and draped in the usual sterile fashion, utilizing all elements of maximal sterile barrier technique, as described above. Using aseptic technique, local anesthesia, direct ultrasound guidance, and the micropuncture system, successful percutaneous entry was achieved into right basilic vein at the level of distal humerus. A 5 [place] dual lumen power PICC was trimmed to 44 cm in length, was inserted through a 5 [place] peel-away sheath, and was easily advanced centrally under fluoroscopic control. Tip of the power PICC was positioned at upper-mid right atrium. This was documented with a single fluoroscopic spot image. The PICC was then demonstrated to flush and aspirate normally, and was secured at the skin exit site utilizing suture and sterile dressing. The patient tolerated the procedure well without apparent complication. Impression: Successful, uneventful ultrasound and fluoro guided placement of right basilic vein 5 Trin[place] dual-lumen 44 cm power PICC, as described.
[2016-11-21] MEDS: AMLODIPINE BESYLATE 10 MG TABLET. PO SCH (09:00)
[2016-11-21] MEDS: ASPIRIN 300 MG SUPP.RECT PR SCH (09:40)
[2016-11-21 10:02] VITALS: BP 162/75
--- NOTE | 2016-11-21 10:29 | PDOC ---
PROGRESS NOTES Subjective Subjective Pt awake and pleasant. C/o sore throat and hoarseness. Objective Objective Pt awake and alert. NAD. VSS. Afebrile. Lungs CTA bilat. Resp even and unlabored. Heart with RRR. No murmurs. S/p defib placement - incision site CDI without surrounding edema or erythema. Vital Signs Date Time Temp Pulse Resp B/P Pulse Ox O2 Delivery O2 Flow Rate FiO2 11/21/16 10:02 98.0 73 20 162/75 97 Room Air 98.0 11/18/16 08:00 2.0 Intake and Output 11/21/16 07:00 Intake Total 850 ml Output Total 1125 ml Balance -275 ml IV Total 850 ml Output Urine Total 1125 ml Assessment Assessment Problems Medical Problems: (1) Acute renal failure Status: Acute (2) Elevated troponin Status: Acute (3) Pre-syncope Status: Acute (4) Syncope Status: Acute Plan Plan of Care 1. Syncopal episode secondary to VT -Cardiology consulting -s/p dual chamber Biotronik ICD for prevention of SCD -anti-arrhythmic therapy converted to IV as currently NPO after failed video swallow -f/u for wound check in one week and 3 months for ICD interrogation in office 2. Dysphagia secondary to pharyngeal hematoma -Failed video swallow, pt NPO -hold clopidogrel as NPO and convert ASA to suppository -BB now IV while NPO -TPN per PICC placed on 11/20 Comment Review of Relevant I have reviewed the following items buck (where applicable) has been applied. Labs Laboratory Tests Test 11/19/16 13:17 11/20/16 03:40 11/21/16 04:25 Urine Collection Type Unknown Urine Color Yellow Urine Clarity Clear Urine pH 5.5 Urine Specific Woodrow 1.020 Urine Protein 191.4mg/dL (Not Estab.) Urine Glucose (UA) Negativemg/dL (NEG) Urine Ketones (Stick) Tracemg/dL (NEG) Urine Blood Negative (NEG) Urine Nitrite Negative (NEG) Urine Bilirubin Negative (NEG) Urine Urobilinogen Dipstick 0.2mg/dL (0.2 mg/dL) Urine Leukocyte Esterase Small (NEG) Urine RBC 0/HPF (0-2) Urine WBC 5-10/HPF (0-4) Urine Squamous Epithelial Cells None/LPF Urine Bacteria 0/HPF (0-FEW) Urine Hyaline Casts Few/HPF Urine Mucus Marked/LPF Urine Creatinine <4.0mg/dL (Not Estab.) Urine Protein/Creatinine Ratio >71504df/g creat (0-200) Sodium Level 146mmol/L (136-145) 145mmol/L (136-145) Potassium Level 3.9mmol/L (3.5-5.1) 4.0mmol/L (3.5-5.1) Chloride Level 112mmol/L (98-107) 112mmol/L (98-107) Carbon Dioxide Level 21mmol/L (21-32) 23mmol/L (21-32) Anion Gap 13 (6-14) 10 (6-14) Blood Urea Nitrogen 36mg/dL (8-26) 39mg/dL (8-26) Creatinine 1.6mg/dL (0.7-1.3) 1.5mg/dL (0.7-1.3) Estimated GFR (Cockcroft-Gault) 41.1 44.3 Glucose Level 96mg/dL (70-99) 143mg/dL (70-99) Calcium Level 8.8mg/dL (8.5-10.1) 8.7mg/dL (8.5-10.1) Phosphorus Level 3.6mg/dL (2.6-4.7) 3.5mg/dL (2.6-4.7) Magnesium Level 2.0mg/dL (1.8-2.4) 2.2mg/dL (1.8-2.4) Albumin 2.8g/dL (3.4-5.0) 2.6g/dL (3.4-5.0) Laboratory Tests Test 11/21/16 04:25 Sodium Level 145mmol/L (136-145) Potassium Level 4.0mmol/L (3.5-5.1) Chloride Level 112mmol/L (98-107) Carbon Dioxide Level 23mmol/L (21-32) Anion Gap 10 (6-14) Blood Urea Nitrogen 39mg/dL (8-26) Creatinine 1.5mg/dL (0.7-1.3) Estimated GFR (Cockcroft-Gault) 44.3 Glucose Level 143mg/dL (70-99) Calcium Level 8.7mg/dL (8.5-10.1) Phosphorus Level 3.5mg/dL (2.6-4.7) Magnesium Level 2.2mg/dL (1.8-2.4) Albumin 2.6g/dL (3.4-5.0) Microbiology 11/19/16 Urine Culture - Preliminary, Resulted 11/19/16 Urine Culture Result 1 (DARNELL) - Preliminary, Resulted Medications Current Medications Fentanyl Citrate 25 mcg 25 mcg PRN Q15MIN PRN IV pain greater than 3 for 3 dose Last administered on 11/14/16 13:40; Start 11/14/16 at 13:30; Stop at 04:55; Status DC Sodium Chloride (Iv Sodium Chloride 0.9% 500ml Bag) 500 ml @ 500 mls/hr 1X ONCE IV Last administered on 11/14/16 16:02; Start 11/14/16 at 14:00; Stop at 14:59; Status DC Ondansetron HCl (Zofran) 4 mg PRN Q8HRS PRN IV NAUSEA/VOMITING; Start 11/14/16 at 15:15; Stop 11/15/16 at 15:14; Status DC Fentanyl Citrate (Fentanyl 2ml Vial) 50 mcg PRN Q2HR PRN IV PAIN; Start at 15:15; Stop 11/15/16 at 15:14; Status DC Acetaminophen (Tylenol) 650 mg PRN Q4HRS PRN PO FEVER; Start 11/14/16 at 15:15 ; Stop 11/15/16 at 15:14; Status DC Clopidogrel Bisulfate (Plavix) 75 mg DAILYWBKFT PO Last administered on 08:09; Start 11/15/16 at 08:00; Status Future Hold Metoprolol Tartrate (Lopressor) 12.5 mg BID PO Last administered on 11/15/16 08:27; Start 11/14/16 at 21:00; Stop 11/15/16 at 09:26; Status DC Hydralazine HCl 10 mg 10 mg PRN Q4HRS PRN IVP ELEVATED BP, SEE COMMENTS Last administered on 11/20/16 06:21; Start 11/14/16 at 16:30; Stop 11/20/16 at 10:50; Status DC Amiodarone HCl 150 mg/Dextrose 103 ml @ 618 mls/hr 1X ONCE IV Last administered on 11/14/16 18:54; Start 11/14/16 at 19:00; Stop 11/14/16 at 19:09 ; Status DC Amiodarone HCl/ Dextrose (Cordarone) 518 ml @ 0 mls/hr CONT PRN IV SEE I/O RECORD Last administered on 11/14/16 19:04; Start 11/14/16 at 19:00; Stop 11/15 at 18:09; Status DC Adenosine (Adenocard) 12 mg 1X ONCE IV Last administered on 11/14/16 18:40; Start 11/14/16 at 18:45; Stop 11/14/16 at 18:46; Status DC Adenosine (Adenocard) 12 mg 1X ONCE IV ; Start 11/14/16 at 18:45; Stop at 18:46; Status DC Metoprolol Tartrate (Lopressor) 25 mg BID PO Last administered on 11/16/16 09: 23; Start 11/15/16 at 21:00; Stop 11/16/16 at 15:56; Status DC Aspirin 81 mg 81 mg DAILYWBKFT PO Last administered on 11/15/16 10:22; Start 11/15/16 at 09:15; Stop 11/16/16 at 04:53; Status DC Heparin Sodium/ Dextrose 500 ml @ 0 mls/hr CONT PRN IV SEE I/O RECORD Last administered on 11/15/16 11:18; Start 11/15/16 at 09:15; Stop 11/17/16 at 08:28 ; Status DC Heparin Sodium (Porcine) 2,100 unit PRN Q6HRS PRN IV FOR UFH LEVEL LESS THAN 0.2; Start 11/15/16 at 09:15; Stop 11/17/16 at 08:28; Status DC Metoprolol Tartrate (Lopressor) 12.5 mg 1X ONCE PO Last administered on 10:22; Start 11/15/16 at 09:45; Stop 11/15/16 at 09:46; Status DC Heparin Sodium (Porcine) 4000 unit 4,000 unit 1X ONCE IV Last administered on 11/15/16 11:21; Start 11/15/16 at 09:45; Stop 11/15/16 at 09:46; Status DC Sodium Chloride (Iv Sodium Chloride 0.9% 1000ml Bag) 1,000 ml @ 75 mls/hr [id number] IV Last administered on 11/20/16 06:27; Start 11/15/16 at 11:15; Stop 11/20/16 at 10:50; Status DC Amiodarone HCl (Cordarone) 200 mg DAILY PO ; Start 11/16/16 at 09:00; Stop 11/16 at 09:00; Status DC Acetaminophen (Tylenol) 650 mg Q4HRS PRN PO Pain ; Start 11/15/16 at 17:30; Status Cancel Acetaminophen (Tylenol) 650 mg PRN Q6HRS PRN PO MILD PAIN / TEMP; Start at 17:45; Stop 11/15/16 at 17:45; Status DC Acetaminophen (Tylenol) 650 mg PRN Q4HRS PRN PO MILD PAIN / TEMP Last administered on 11/15/16 17:54; Start 11/15/16 at 17:45; Stop 11/16/16 at 04:53 ; Status DC Amiodarone HCl (Cordarone) 200 mg DAILY PO Last administered on 11/19/16 08:11 ; Start 11/15/16 at 17:45; Stop 11/20/16 at 10:50; Status DC Acetaminophen (Tylenol) 650 mg PRN Q4HRS PRN PO MILD PAIN / TEMP Last administered on 11/17/16 20:40; Start 11/16/16 at 04:53 Aspirin (Children'S Aspirin) 81 mg DAILYWBKFT PO Last administered on 11/19/16 08:11; Start 11/16/16 at 08:00; Stop 11/20/16 at 10:50; Status DC Verapamil HCl (Verapamil) 5 mg STK-MED ONCE .ROUTE ; Start 11/16/16 at 13:49; Stop 11/16/16 at 13:50; Status DC Midazolam HCl (Versed) 2 mg STK-MED ONCE .ROUTE ; Start 11/16/16 at 13:49; Stop 11/16/16 at 13:50; Status DC Fentanyl Citrate (Fentanyl 2ml Vial) 100 mcg STK-MED ONCE .ROUTE ; Start at 13:49; Stop 11/16/16 at 13:50; Status DC Heparin Sodium (Porcine) 10,000 unit STK-MED ONCE .ROUTE ; Start 11/16/16 at 13: 49; Stop 11/16/16 at 13:50; Status DC Midazolam HCl (Versed) 2 mg STK-MED ONCE .ROUTE ; Start 11/16/16 at 13:59; Stop 11/16/16 at 14:00; Status DC Fentanyl Citrate (Fentanyl 2ml Vial) 100 mcg STK-MED ONCE .ROUTE ; Start at 13:59; Stop 11/16/16 at 14:00; Status DC Nitroglycerin (Nitroglycerin) 200 mcg 1X ONCE IART Last administered on 15:04; Start 11/16/16 at 14:15; Stop 11/16/16 at 14:16; Status DC Verapamil HCl (Verapamil) 2.5 mg 1X ONCE IART Last administered on 11/16/16 15:04; Start 11/16/16 at 14:15; Stop 11/16/16 at 14:16; Status DC Heparin Sodium (Porcine) 2,500 unit 1X ONCE IART Last administered on 15:05; Start 11/16/16 at 14:15; Stop 11/16/16 at 14:16; Status DC Heparin Sodium/ Sodium Chloride 1,000 unit 1X ONCE IART Last administered on 15:04; Start 11/16/16 at 14:15; Stop 11/16/16 at 14:16; Status DC Midazolam HCl (Versed) 2 mg 1X ONCE IV Last administered on 11/16/16 15:03; Start 11/16/16 at 14:15; Stop 11/16/16 at 14:16; Status DC Fentanyl Citrate (Fentanyl 2ml Vial) 100 mcg 1X ONCE IV Last administered on 15:03; Start 11/16/16 at 14:15; Stop 11/16/16 at 14:16; Status DC Iodixanol (Visipaque 320) 100 ml 1X ONCE IART Last administered on 11/16/16 14:59; Start 11/16/16 at 14:15; Stop 11/16/16 at 14:16; Status DC Lidocaine HCl 20 ml 1X ONCE IJ Last administered on 11/16/16 15:01; Start at 14:15; Stop 11/16/16 at 14:16; Status DC Info (Do NOT chart on this entry -- for MONITORING) 1 each PRN DAILY PRN MC SEE COMMENTS; Start 11/16/16 at 14:15; Stop 11/18/16 at 14:14; Status DC Adenosine (Adenoscan) 90 mg STK-MED ONCE IV ; Start 11/16/16 at 14:19; Stop at 14:20; Status DC Atropine Sulfate 0.5 mg 0.5 mg STK-MED ONCE .ROUTE ; Start 11/16/16 at 14:32; Stop 11/16/16 at 14:33; Status DC Adenosine/Sodium Chloride (Adenoscan/Iv Sodium Chloride 0.9% 50ml) 120 ml @ 200 mls/hr 1X ONCE IV Last administered on 11/16/16 14:45; Start 11/16/16 at 14:45; Stop 11/16/16 at 15:21; Status DC Metoprolol Tartrate (Lopressor) 50 mg BID PO Last administered on 11/16/16 20: 40; Start 11/16/16 at 21:00; Stop 11/17/16 at 04:58; Status DC Metoprolol Tartrate (Lopressor) 25 mg 1X ONCE PO Last administered on 16:23; Start 11/16/16 at 16:00; Stop 11/16/16 at 16:01; Status DC Albuterol Sulfate (Ventolin Neb Soln) 2.5 mg PRN Q6HRS PRN NEB SHORTNESS OF BREATH Last administered on 11/16/16 22:27; Start 11/16/16 at 22:15 Throat Lozenges (Chloraseptic) 1 spray PRN Q2HR PRN PO SORE THROAT Last administered on 11/17/16 00:04; Start 11/16/16 at 22:15 Epinephrine (S2 Racepinephrine) 0.5 ml 1X ONCE NEB Last administered on 22:33; Start 11/16/16 at 23:00; Stop 11/16/16 at 23:01; Status DC Calcium Carbonate/ Glycine (Tums) 500 mg 1X ONCE PO Last administered on 03:55; Start 11/17/16 at 04:00; Stop 11/17/16 at 04:01; Status DC Metoprolol Tartrate 50 mg 50 mg BID PO Last administered on 11/19/16 08:10; Start 11/17/16 at 09:00; Stop 11/20/16 at 09:21; Status DC Bacitracin 07213 unit/Sodium Chloride 250 ml @ 0 mls/hr 1X ONCE IRR Last administered on 11/17/16 11:36; Start 11/17/16 at 09:00; Stop 11/17/16 at 09:01 ; Status DC Cefazolin Sodium/ Dextrose 50 ml @ 100 mls/hr 1X ONCE IV Last administered on 11/17/16 11:37; Start 11/17/16 at 08:45; Stop 11/17/16 at 09:14; Status DC Cefazolin Sodium/ Dextrose 50 ml @ As Directed STK-MED ONCE IV ; Start 11/17/16 at 09:59; Stop 11/17/16 at 10:00; Status DC Propofol 20 ml @ As Directed STK-MED ONCE IV ; Start 11/17/16 at 10:01; Stop at 10:02; Status DC Propofol (Diprivan) 20 ml @ As Directed STK-MED ONCE IV ; Start 11/17/16 at 10: 01; Stop 11/17/16 at 10:02; Status DC Lidocaine HCl 100 mg 100 mg STK-MED ONCE .ROUTE ; Start 11/17/16 at 10:01; Stop 11/17/16 at 10:02; Status DC Propofol (Diprivan) 0 ml @ As Directed STK-MED ONCE IV ; Start 11/17/16 at 10:02 ; Stop 11/17/16 at 10:03; Status DC Lidocaine/ Epinephrine (Xylocaine 2%-Epi 1:100,000) 20 ml STK-MED ONCE .ROUTE ; Start 11/17/16 at 10:14; Stop 11/17/16 at 10:15; Status DC Lidocaine/ Epinephrine 20 ml 20 ml 1X ONCE IJ Last administered on 11/17/16 11:36; Start 11/17/16 at 11:00; Stop 11/17/16 at 11:05; Status DC Cefazolin Sodium/ Dextrose 50 ml @ 100 mls/hr 1X ONCE IV ; Start 11/17/16 at 11:45; Stop 11/17/16 at 12:14; Status DC Cefazolin Sodium/ Dextrose (Ancef 2gm Premix) 50 ml @ 100 mls/hr 1X ONCE IV Last administered on 11/17/16 17:49; Start 11/17/16 at 18:00; Stop 11/17/16 at 18:29; Status DC Amlodipine Besylate 5 mg 5 mg DAILY PO Last administered on 11/18/16 09:00; Start 11/18/16 at 09:00; Stop 11/18/16 at 16:17; Status DC Magnesium Sulfate/ Dextrose (Magnesium Sulfate PREMIX 2GM) 50 ml @ 25 mls/hr PRN DAILY PRN IV for Mag < 1.7 on am labs; Start 11/18/16 at 16:15 Amlodipine Besylate (Norvasc) 10 mg DAILY PO Last administered on 11/19/16 08: 10; Start 11/19/16 at 09:00 Barium Sulfate (Varibar Thin Liquid Apple) 148 gm 1X ONCE PO Last administered on 11/19/16 11:02; Start 11/19/16 at 10:30; Stop 11/19/16 at 10:31; Status DC Nitroglycerin (Nitro-Bid Oint) 1.5 inch Q6HRS TP Last administered on 11/20/16 06:16; Start 11/19/16 at 13:00; Stop 11/20/16 at 10:50; Status DC Iohexol (Omnipaque 300 Mg/ml) 75 ml 1X ONCE IV Last administered on 11/19/16 13:45; Start 11/19/16 at 13:45; Stop 11/19/16 at 13:46; Status DC Info 1 each 1 each PRN DAILY PRN MC SEE COMMENTS; Start 11/19/16 at 14:00; Stop 11/21/16 at 13:59 Amiodarone HCl/ Dextrose (Cordarone) 518 ml @ 0 mls/hr 1X ONCE IV Last administered on 11/20/16 11:18; Start 11/20/16 at 09:15; Stop 11/20/16 at 09:22; Status DC Metoprolol Tartrate (Lopressor) 5 mg Q6H IVP Last administered on 11/21/16 09: 42; Start 11/20/16 at 10:00 Hydralazine HCl 20 mg 20 mg PRN Q4HRS PRN IVP ELEVATED BP, SEE COMMENTS Last administered on 11/21/16 04:56; Start 11/20/16 at 10:45 Amino Acids/ Electrolytes/ Dextrose (Clinimix E 4.25%-5% Solution) 1,000 ml @ 80 mls/hr [id number] IV Last administered on 11/21/16 03:04; Start 11/20/16 at 11: 00 Aspirin (Aspirin) 300 mg DAILY NV Last administered on 11/21/16 09:40; Start at 11:00 Heparin Sodium/ Sodium Chloride 1,000 unit 1X ONCE IART Last administered on 17:15; Start 11/20/16 at 17:00; Stop 11/20/16 at 17:04; Status DC Lidocaine/Sodium Bicarbonate (Buffered Lidocaine 1%) 20 ml 1X ONCE IJ Last administered on 11/20/16 17:15; Start 11/20/16 at 17:00; Stop 11/20/16 at 17:04; Status DC Info 1 each PRN DAILY PRN MC SEE COMMENTS; Start 11/20/16 at 19:30 Active Scripts Active Reported Clopidogrel (Clopidogrel Bisulfate) 75 Mg Tablet 1 Tab PO DAILY Atorvastatin Calcium 40 Mg Tablet 1 Tab PO QHS Lisinopril-Hctz 20-12.5 Mg Tab (Lisinopril/Hydrochlorothiazide) 1 Each Tablet 1 Tab PO DAILY Nifedipine Er (Nifedipine) 60 Mg Tab.er.24 1 Tab PO DAILY Vitals/I & O Vital Sign - Last 24 Hours 11/20/16 11/20/16 11/20/16 11/20/16 11:14 11:59 15:00 18:38 Temp 97.5 97.6 97.5 97.6 Pulse 102 88 90 90 Resp 19 19 B/P 180/83 169/68 164/85 164/85 Pulse Ox 94 94 O2 Delivery Room Air Room Air 11/20/16 11/20/16 11/20/16 11/20/16 19:45 20:00 21:13 23:15 Temp 97.7 97.9 97.7 97.9 Pulse 83 84 96 Resp 20 18 B/P 189/78 183/90 158/80 Pulse Ox 97 96 O2 Delivery Room Air Room Air Room Air 11/21/16 11/21/16 11/21/16 11/21/16 00:10 03:20 04:55 04:56 Temp 97.8 97.8 Pulse 98 87 95 95 Resp 18 B/P 186/93 173/65 187/89 187/81 Pulse Ox 96 O2 Delivery Room Air 11/21/16 11/21/16 11/21/16 11/21/16 06:01 07:50 09:42 10:02 Temp 98.0 98.0 Pulse 83 89 73 Resp 20 B/P 140/76 174/78 162/75 Pulse Ox 97 O2 Delivery Room Air Room Air Intake and Output 11/20/16 11/20/16 11/21/16 15:00 23:00 07:00 Intake Total 850 ml Output Total 900 ml 225 ml Balance -900 ml 625 ml LAKHWINDER AMAYA MD Nov 21, 2016 10:29
--- NOTE | 2016-11-21 11:48 | PDOC ---
SUBJECTIVE ROS WARNER Doing OK overall CVS: no Orthopnea, no CP RESP: no SOB, no COLÓN GI: no Nausea, no Vomiting : no Dysuria, no Urgency Still unabel to swallo OBJECTIVE Vital Signs Vital Signs Date Time Temp Pulse Resp B/P Pulse Ox O2 Delivery O2 Flow Rate FiO2 11/21/16 11:31 73 162/75 11/21/16 10:02 98.0 20 97 Room Air 98.0 I & 0 Intake and Output 11/21/16 07:00 Intake Total 850 ml Output Total 1125 ml Balance -275 ml IV Total 850 ml Output Urine Total 1125 ml PHYSICAL EXAM Physical Exam GEN: Awake, Oriented x 2, In no distress EYES: Vision Unchanged, Conjunctiva Normal; nya-orbital ecchymosis improved EN: No EN Drainage, Mucous Membranes moist NECK: no JVD, no JVP, Supple, no Thyromegaly CVS: S1S2, + Murmur, No Gallop, No Rub,no Edema RESP: no Rales, no Rhonchi,no Acc. Muscle Use GI: BS + ve, NO Bruit, Non Tender, Non Distended : no CVA tenderness, no Suprapubic Tenderness DIAGNOSIS/ASSESSMENT Assessment & Plan ARF/ ATN: ? CAN. Not sure if Creat of 0.8 was true normal however Creat is trending down now so will see where he settles (Off of CAITLYN-i) Current fluid and E-lyte status does not necessitate emergent need for dialysis. ? CKD III - Creat was ^ when he came in too - ? Due to HCTZ + CAITLYN-i (currently off) HTN: Current BP meds as held due to NPO status. See orders for changes. Catapress patch until able to take PO Proteinuria - Quantitate with ratio; suspect worse after holding CAITLYN-i Marginal Anemia - watch trend ^Na - better with change IVF to PPN; watch when TPN starts tonite COMMENT/RELEVANT DATA Meds Current Medications Medications (Trade) Dose Ordered Sig/Mamta Start Time Stop Time Status Last Admin Dose Admin Acetaminophen (Tylenol) 650 mg PRN Q4HRS PRN 11/16/16 04:53 11/17/16 20:40 650 MG Adenosine (Adenocard) 12 mg 1X ONCE 11/14/16 18:45 11/14/16 18:46 DC Adenosine (Adenoscan) 90 mg STK-MED ONCE 11/16/16 14:19 11/16/16 14:20 DC Adenosine/Sodium Chloride (Adenoscan/Iv Sodium Chloride 0.9% 50ml) 120 ml @ 200 mls/hr 1X ONCE 11/16/16 14:45 11/16/16 15:21 DC 11/16/16 14:45 200 MLS/HR Albuterol Sulfate (Ventolin Neb Soln) 2.5 mg PRN Q6HRS PRN 11/16/16 22:15 11/16/16 22:27 2.5 MG Amino Acids/ Electrolytes/ Dextrose (Clinimix E 4.25%-5% Solution) 1,000 ml @ 80 mls/hr [id number] 11/20/16 11:00 11/21/16 03:04 80 MLS/HR Amiodarone HCl (Cordarone) 200 mg DAILY 11/15/16 17:45 11/20/16 10:50 DC 11/19/16 08:11 200 MG Amiodarone HCl/ Dextrose (Cordarone) 518 ml @ 0 mls/hr 1X ONCE 11/20/16 09:15 11/20/16 09:22 DC 11/20/16 11:18 0 MLS/HR Amlodipine Besylate (Norvasc) 10 mg DAILY 11/19/16 09:00 11/19/16 08:10 10 MG Amlodipine Besylate 5 mg 5 mg DAILY 11/18/16 09:00 11/18/16 16:17 DC 11/18/16 09:00 5 MG Aspirin (Aspirin) 300 mg DAILY 11/20/16 11:00 11/21/16 09:40 300 MG Aspirin (Children'S Aspirin) 81 mg DAILYWBKFT 11/16/16 08:00 11/20/16 10:50 DC 11/19/16 08:11 81 MG Aspirin 81 mg 81 mg DAILYWBKFT 11/15/16 09:15 11/16/16 04:53 DC 11/15/16 10:22 81 MG Atropine Sulfate 0.5 mg 0.5 mg STK-MED ONCE 11/16/16 14:32 11/16/16 14:33 DC Bacitracin/Sodium Chloride (Bacitracin/Iv Sodium Chloride 0.9% 250ml) 250 ml @ 0 mls/hr 1X ONCE 11/17/16 09:00 11/17/16 09:01 DC 11/17/16 11:36 250 MLS/HR Barium Sulfate (Varibar Thin Liquid Apple) 148 gm 1X ONCE 11/19/16 10:30 11/19/16 10:31 DC 11/19/16 11:02 148 GM Calcium Carbonate/ Glycine (Tums) 500 mg 1X ONCE 11/17/16 04:00 11/17/16 04:01 DC 11/17/16 03:55 500 MG Cefazolin Sodium/ Dextrose (Ancef 2gm Premix) 50 ml @ 100 mls/hr 1X ONCE 11/17/16 18:00 11/17/16 18:29 DC 11/17/16 17:49 100 MLS/HR Clopidogrel Bisulfate (Plavix) 75 mg DAILYWBKFT 11/15/16 08:00 Future Hold 11/19/16 08:09 75 MG Epinephrine (S2 Racepinephrine) 0.5 ml 1X ONCE 11/16/16 23:00 11/16/16 23:01 DC 11/16/16 22:33 0.5 ML Fentanyl Citrate (Fentanyl 2ml Vial) 100 mcg 1X ONCE 11/16/16 14:15 11/16/16 14:16 DC 11/16/16 15:03 100 MCG Fentanyl Citrate 25 mcg 25 mcg PRN Q15MIN PRN 11/14/16 13:30 11/16/16 04:55 DC 11/14/16 13:40 25 MCG Heparin Sodium (Porcine) 2,500 unit 1X ONCE 11/16/16 14:15 11/16/16 14:16 DC 11/16/16 15:05 2,500 UNIT Heparin Sodium (Porcine) 4000 unit 4,000 unit 1X ONCE 11/15/16 09:45 11/15/16 09:46 DC 11/15/16 11:21 4,000 UNIT Heparin Sodium/ Dextrose 500 ml @ 0 mls/hr CONT PRN 11/15/16 09:15 11/17/16 08:28 DC 11/15/16 11:18 19.9 MLS/HR Heparin Sodium/ Sodium Chloride 500 ml @ As Directed STK-MED ONCE 11/20/16 16:43 11/21/16 11:25 DC Hydralazine HCl (Apresoline) 10 mg PRN Q4HRS PRN 11/14/16 16:30 11/20/16 10:50 DC 11/20/16 06:21 10 MG Hydralazine HCl 20 mg 20 mg PRN Q4HRS PRN 11/20/16 10:45 11/21/16 11:31 20 MG Info 1 each PRN DAILY PRN 11/20/16 19:30 Info (Do NOT chart on this entry -- for MONITORING) 1 each PRN DAILY PRN 11/16/16 14:15 11/18/16 14:14 DC Info 1 each 1 each PRN DAILY PRN 11/19/16 14:00 11/21/16 13:59 Iodixanol (Visipaque 320) 100 ml 1X ONCE 11/16/16 14:15 11/16/16 14:16 DC 11/16/16 14:59 98 ML Iohexol (Omnipaque 300 Mg/ml) 75 ml 1X ONCE 11/19/16 13:45 11/19/16 13:46 DC 11/19/16 13:45 75 ML Lidocaine HCl 20 ml 1X ONCE 11/16/16 14:15 11/16/16 14:16 DC 11/16/16 15:01 2 ML Lidocaine HCl 100 mg 100 mg STK-MED ONCE 11/17/16 10:01 11/17/16 10:02 DC Lidocaine/ Epinephrine (Xylocaine 2%-Epi 1:100,000) 20 ml STK-MED ONCE 11/17/16 10:14 11/17/16 10:15 DC Lidocaine/ Epinephrine 20 ml 20 ml 1X ONCE 11/17/16 11:00 11/17/16 11:05 DC 11/17/16 11:36 30 ML Lidocaine/Sodium Bicarbonate (Buffered Lidocaine 1%) 20 ml 1X ONCE 11/20/16 17:00 11/20/16 17:04 DC 11/20/16 17:15 20 ML Lidocaine/Sodium Bicarbonate 20 ml 20 ml STK-MED ONCE 11/20/16 16:43 11/21/16 11:25 DC Magnesium Sulfate/ Dextrose (Magnesium Sulfate PREMIX 2GM) 50 ml @ 25 mls/hr PRN DAILY PRN 11/18/16 16:15 Metoprolol Tartrate (Lopressor) 5 mg Q6H 11/20/16 10:00 11/21/16 09:42 5 MG Metoprolol Tartrate 50 mg 50 mg BID 11/17/16 09:00 11/20/16 09:21 DC 11/19/16 08:10 50 MG Midazolam HCl (Versed) 2 mg 1X ONCE 11/16/16 14:15 11/16/16 14:16 DC 11/16/16 15:03 3 MG Nitroglycerin (Nitro-Bid Oint) 1.5 inch Q6HRS 11/19/16 13:00 11/20/16 10:50 DC 11/20/16 06:16 1.5 INCH Nitroglycerin (Nitroglycerin) 200 mcg 1X ONCE 11/16/16 14:15 11/16/16 14:16 DC 11/16/16 15:04 200 MCG Ondansetron HCl (Zofran) 4 mg PRN Q8HRS PRN 11/14/16 15:15 11/15/16 15:14 DC Propofol (Diprivan) 0 ml @ As Directed STK-MED ONCE 11/17/16 10:02 11/17/16 10:03 DC Sodium Chloride (Iv Sodium Chloride 0.9% 500ml Bag) 500 ml @ 500 mls/hr 1X ONCE 11/14/16 14:00 11/14/16 14:59 DC 11/14/16 16:02 500 MLS/HR Sodium Chloride (Iv Sodium Chloride 0.9% 1000ml Bag) 1,000 ml @ 75 mls/hr [id number] 11/15/16 11:15 11/20/16 10:50 DC 11/20/16 06:27 75 MLS/HR Throat Lozenges (Chloraseptic) 1 spray PRN Q2HR PRN 11/16/16 22:15 11/17/16 00:04 1 SPRAY Verapamil HCl (Verapamil) 2.5 mg 1X ONCE 11/16/16 14:15 11/16/16 14:16 DC 11/16/16 15:04 2.5 MG Lab Laboratory Tests Test 11/21/16 04:25 Sodium Level 145mmol/L (136-145) Potassium Level 4.0mmol/L (3.5-5.1) Chloride Level 112mmol/L (98-107) Carbon Dioxide Level 23mmol/L (21-32) Anion Gap 10 (6-14) Blood Urea Nitrogen 39mg/dL (8-26) Creatinine 1.5mg/dL (0.7-1.3) Estimated GFR (Cockcroft-Gault) 44.3 Glucose Level 143mg/dL (70-99) Calcium Level 8.7mg/dL (8.5-10.1) Phosphorus Level 3.5mg/dL (2.6-4.7) Magnesium Level 2.2mg/dL (1.8-2.4) Albumin 2.6g/dL (3.4-5.0) GORDO HARRISON MD Nov 21, 2016 11:48
[2016-11-21] MEDS ORDERED: CLONIDINE TTS-2 PATCH TD SCH (12:00)
[2016-11-21] MEDS: TPN PER PHARMACY MC PRN (13:23)
[2016-11-21 14:28] VITALS: BP 158/74
[2016-11-21] MEDS ORDERED: AMIODARONE 900 MG in IV DEXTROSE 5% 500 ML IV PRN (19:30)
[2016-11-21 19:45] VITALS: BP 175/85
[2016-11-21] MEDS: FENTANYL PF 100 MCG/2 ML VIAL. IV PRN (20:12)
[2016-11-21] MEDS ORDERED: AMINO ACIDS IV SCH ×10 (22:00)
[2016-11-21] MEDS ORDERED: [UNRECOGNIZED DRUG - OTHER] IV SCH ×10 (22:00)
[2016-11-21] MEDS ORDERED: DEXTROSE 70% IV SCH ×10 (22:00)
[2016-11-21] MEDS ORDERED: TOTAL PARENTERAL NUTRITION IV SCH ×10 (22:00)
[2016-11-21 22:40] VITALS: BP 166/72
[2016-11-22 03:15] VITALS: BP 153/78
[2016-11-22] MEDS: METOPROLOL TARTRATE 5 MG/5 ML VIAL. IVP SCH ×4 (05:44→20:41)
[2016-11-22 06:41] LABS: ALBUMIN 2.5 g/dL (3.4-5.0); CALCIUM 8.6 mg/dL (8.5-10.1); CREATININE 1.5 mg/dL (0.7-1.3); GFR 44.3; MAGNESIUM 2.2 mg/dL (1.8-2.4); PHOSPHORUS 3.6 mg/dL (2.6-4.7); POTASSIUM 4.1 mmol/L (3.5-5.1)
[2016-11-22 07:00] VITALS: BP 176/70
[2016-11-22] MEDS: AMLODIPINE BESYLATE 10 MG TABLET. PO SCH (09:00)
[2016-11-22] MEDS: ASPIRIN 300 MG SUPP.RECT PR SCH (09:00)
--- NOTE | 2016-11-22 10:31 | PDOC ---
PROGRESS NOTES Subjective Subjective Pt awake and pleasant. States his ST and hoarseness has improved over the last 24 hours. Continues to deny CP. Objective Objective Vital Signs Date Time Temp Pulse Resp B/P Pulse Ox O2 Delivery O2 Flow Rate FiO2 11/22/16 07:00 98.0 75 18 176/70 97 Room Air 98.0 11/18/16 08:00 2.0 Intake and Output 11/22/16 07:00 Intake Total 888 ml Output Total 700 ml Balance 188 ml Intake Oral 0 ml IV Total 888 ml Output Urine Total 700 ml Assessment Assessment Problems Medical Problems: (1) Acute renal failure Status: Acute (2) Elevated troponin Status: Acute (3) Pre-syncope Status: Acute (4) Syncope Status: Acute Plan Plan of Care 1. Syncopal episode secondary to VT -Cardiology consulting -s/p dual chamber Biotronik ICD for prevention of SCD -anti-arrhythmic therapy converted to IV as currently NPO after failed video swallow -f/u for wound check in one week and 3 months for ICD interrogation in office 2. Dysphagia secondary to pharyngeal hematoma -Failed video swallow, pt NPO. Speech asked to reeval pt today as ST and hoarseness improved. -hold clopidogrel as NPO and convert ASA to suppository -BB now IV while NPO -TPN per PICC placed on 11/20 Pt will need SNF placement upon Dc. SNF refusing acceptance of pt while on TPN. Repeat swallow study ordered for today as pt's ST and hoarseness has improved with probable shrinkage of hematoma. Comment Review of Relevant I have reviewed the following items buck (where applicable) has been applied. Labs Laboratory Tests Test 11/21/16 04:25 11/22/16 06:00 Sodium Level 145mmol/L (136-145) 145mmol/L (136-145) Potassium Level 4.0mmol/L (3.5-5.1) 4.1mmol/L (3.5-5.1) Chloride Level 112mmol/L (98-107) 110mmol/L (98-107) Carbon Dioxide Level 23mmol/L (21-32) 25mmol/L (21-32) Anion Gap 10 (6-14) 10 (6-14) Blood Urea Nitrogen 39mg/dL (8-26) 42mg/dL (8-26) Creatinine 1.5mg/dL (0.7-1.3) 1.5mg/dL (0.7-1.3) Estimated GFR (Cockcroft-Gault) 44.3 44.3 Glucose Level 143mg/dL (70-99) 144mg/dL (70-99) Calcium Level 8.7mg/dL (8.5-10.1) 8.6mg/dL (8.5-10.1) Phosphorus Level 3.5mg/dL (2.6-4.7) 3.6mg/dL (2.6-4.7) Magnesium Level 2.2mg/dL (1.8-2.4) 2.2mg/dL (1.8-2.4) Albumin 2.6g/dL (3.4-5.0) 2.5g/dL (3.4-5.0) Laboratory Tests Test 11/22/16 06:00 Sodium Level 145mmol/L (136-145) Potassium Level 4.1mmol/L (3.5-5.1) Chloride Level 110mmol/L (98-107) Carbon Dioxide Level 25mmol/L (21-32) Anion Gap 10 (6-14) Blood Urea Nitrogen 42mg/dL (8-26) Creatinine 1.5mg/dL (0.7-1.3) Estimated GFR (Cockcroft-Gault) 44.3 Glucose Level 144mg/dL (70-99) Calcium Level 8.6mg/dL (8.5-10.1) Phosphorus Level 3.6mg/dL (2.6-4.7) Magnesium Level 2.2mg/dL (1.8-2.4) Albumin 2.5g/dL (3.4-5.0) Microbiology 11/19/16 Urine Culture - Final, Complete 11/19/16 Urine Culture Result 1 (DARNELL) - Final, Complete Medications Current Medications Fentanyl Citrate 25 mcg 25 mcg PRN Q15MIN PRN IV pain greater than 3 for 3 dose Last administered on 11/14/16t 13:40; Start 11/14/16 at 13:30; Stop at 04:55; Status DC Sodium Chloride (Iv Sodium Chloride 0.9% 500ml Bag) 500 ml @ 500 mls/hr 1X ONCE IV Last administered on 11/14/16 16:02; Start 11/14/16 at 14:00; Stop at 14:59; Status DC Ondansetron HCl (Zofran) 4 mg PRN Q8HRS PRN IV NAUSEA/VOMITING; Start 11/14/16 at 15:15; Stop 11/15/16 at 15:14; Status DC Fentanyl Citrate (Fentanyl 2ml Vial) 50 mcg PRN Q2HR PRN IV PAIN; Start at 15:15; Stop 11/15/16 at 15:14; Status DC Acetaminophen (Tylenol) 650 mg PRN Q4HRS PRN PO FEVER; Start 11/14/16 at 15:15 ; Stop 11/15/16 at 15:14; Status DC Clopidogrel Bisulfate (Plavix) 75 mg DAILYWBKFT PO Last administered on 08:09; Start 11/15/16 at 08:00; Stop 11/21/16 at 16:02; Status DC Metoprolol Tartrate (Lopressor) 12.5 mg BID PO Last administered on 11/15/16 08:27; Start 11/14/16 at 21:00; Stop 11/15/16 at 09:26; Status DC Hydralazine HCl 10 mg 10 mg PRN Q4HRS PRN IVP ELEVATED BP, SEE COMMENTS Last administered on 11/20/16 06:21; Start 11/14/16 at 16:30; Stop 11/20/16 at 10:50; Status DC Amiodarone HCl 150 mg/Dextrose 103 ml @ 618 mls/hr 1X ONCE IV Last administered on 11/14/16 18:54; Start 11/14/16 at 19:00; Stop 11/14/16 at 19:09 ; Status DC Amiodarone HCl/ Dextrose (Cordarone) 518 ml @ 0 mls/hr CONT PRN IV SEE I/O RECORD Last administered on 11/14/16 19:04; Start 11/14/16 at 19:00; Stop 11/15 at 18:09; Status DC Adenosine (Adenocard) 12 mg 1X ONCE IV Last administered on 11/14/16 18:40; Start 11/14/16 at 18:45; Stop 11/14/16 at 18:46; Status DC Adenosine (Adenocard) 12 mg 1X ONCE IV ; Start 11/14/16 at 18:45; Stop at 18:46; Status DC Metoprolol Tartrate (Lopressor) 25 mg BID PO Last administered on 11/16/16 09: 23; Start 11/15/16 at 21:00; Stop 11/16/16 at 15:56; Status DC Aspirin 81 mg 81 mg DAILYWBKFT PO Last administered on 11/15/16 10:22; Start 11/15/16 at 09:15; Stop 11/16/16 at 04:53; Status DC Heparin Sodium/ Dextrose 500 ml @ 0 mls/hr CONT PRN IV SEE I/O RECORD Last administered on 11/15/16 11:18; Start 11/15/16 at 09:15; Stop 11/17/16 at 08:28 ; Status DC Heparin Sodium (Porcine) 2,100 unit PRN Q6HRS PRN IV FOR UFH LEVEL LESS THAN 0.2; Start 11/15/16 at 09:15; Stop 11/17/16 at 08:28; Status DC Metoprolol Tartrate (Lopressor) 12.5 mg 1X ONCE PO Last administered on 10:22; Start 11/15/16 at 09:45; Stop 11/15/16 at 09:46; Status DC Heparin Sodium (Porcine) 4000 unit 4,000 unit 1X ONCE IV Last administered on 11/15/16 11:21; Start 11/15/16 at 09:45; Stop 11/15/16 at 09:46; Status DC Sodium Chloride (Iv Sodium Chloride 0.9% 1000ml Bag) 1,000 ml @ 75 mls/hr [id number] IV Last administered on 11/20/16 06:27; Start 11/15/16 at 11:15; Stop 11/20/16 at 10:50; Status DC Amiodarone HCl (Cordarone) 200 mg DAILY PO ; Start 11/16/16 at 09:00; Stop 11/16 at 09:00; Status DC Acetaminophen (Tylenol) 650 mg Q4HRS PRN PO Pain ; Start 11/15/16 at 17:30; Status Cancel Acetaminophen (Tylenol) 650 mg PRN Q6HRS PRN PO MILD PAIN / TEMP; Start at 17:45; Stop 11/15/16 at 17:45; Status DC Acetaminophen (Tylenol) 650 mg PRN Q4HRS PRN PO MILD PAIN / TEMP Last administered on 11/15/16 17:54; Start 11/15/16 at 17:45; Stop 11/16/16 at 04:53 ; Status DC Amiodarone HCl (Cordarone) 200 mg DAILY PO Last administered on 11/19/16 08:11 ; Start 11/15/16 at 17:45; Stop 11/20/16 at 10:50; Status DC Acetaminophen (Tylenol) 650 mg PRN Q4HRS PRN PO MILD PAIN / TEMP Last administered on 11/17/16 20:40; Start 11/16/16 at 04:53 Aspirin (Children'S Aspirin) 81 mg DAILYWBKFT PO Last administered on 11/19/16 08:11; Start 11/16/16 at 08:00; Stop 11/20/16 at 10:50; Status DC Verapamil HCl (Verapamil) 5 mg STK-MED ONCE .ROUTE ; Start 11/16/16 at 13:49; Stop 11/16/16 at 13:50; Status DC Midazolam HCl (Versed) 2 mg STK-MED ONCE .ROUTE ; Start 11/16/16 at 13:49; Stop 11/16/16 at 13:50; Status DC Fentanyl Citrate (Fentanyl 2ml Vial) 100 mcg STK-MED ONCE .ROUTE ; Start at 13:49; Stop 11/16/16 at 13:50; Status DC Heparin Sodium (Porcine) 10,000 unit STK-MED ONCE .ROUTE ; Start 11/16/16 at 13: 49; Stop 11/16/16 at 13:50; Status DC Midazolam HCl (Versed) 2 mg STK-MED ONCE .ROUTE ; Start 11/16/16 at 13:59; Stop 11/16/16 at 14:00; Status DC Fentanyl Citrate (Fentanyl 2ml Vial) 100 mcg STK-MED ONCE .ROUTE ; Start at 13:59; Stop 11/16/16 at 14:00; Status DC Nitroglycerin (Nitroglycerin) 200 mcg 1X ONCE IART Last administered on 15:04; Start 11/16/16 at 14:15; Stop 11/16/16 at 14:16; Status DC Verapamil HCl (Verapamil) 2.5 mg 1X ONCE IART Last administered on 11/16/16 15:04; Start 11/16/16 at 14:15; Stop 11/16/16 at 14:16; Status DC Heparin Sodium (Porcine) 2,500 unit 1X ONCE IART Last administered on 15:05; Start 11/16/16 at 14:15; Stop 11/16/16 at 14:16; Status DC Heparin Sodium/ Sodium Chloride 1,000 unit 1X ONCE IART Last administered on 15:04; Start 11/16/16 at 14:15; Stop 11/16/16 at 14:16; Status DC Midazolam HCl (Versed) 2 mg 1X ONCE IV Last administered on 11/16/16 15:03; Start 11/16/16 at 14:15; Stop 11/16/16 at 14:16; Status DC Fentanyl Citrate (Fentanyl 2ml Vial) 100 mcg 1X ONCE IV Last administered on 15:03; Start 11/16/16 at 14:15; Stop 11/16/16 at 14:16; Status DC Iodixanol (Visipaque 320) 100 ml 1X ONCE IART Last administered on 11/16/16 14:59; Start 11/16/16 at 14:15; Stop 11/16/16 at 14:16; Status DC Lidocaine HCl 20 ml 1X ONCE IJ Last administered on 11/16/16 15:01; Start at 14:15; Stop 11/16/16 at 14:16; Status DC Info (Do NOT chart on this entry -- for MONITORING) 1 each PRN DAILY PRN MC SEE COMMENTS; Start 11/16/16 at 14:15; Stop 11/18/16 at 14:14; Status DC Adenosine (Adenoscan) 90 mg STK-MED ONCE IV ; Start 11/16/16 at 14:19; Stop at 14:20; Status DC Atropine Sulfate 0.5 mg 0.5 mg STK-MED ONCE .ROUTE ; Start 11/16/16 at 14:32; Stop 11/16/16 at 14:33; Status DC Adenosine/Sodium Chloride (Adenoscan/Iv Sodium Chloride 0.9% 50ml) 120 ml @ 200 mls/hr 1X ONCE IV Last administered on 11/16/16 14:45; Start 11/16/16 at 14:45; Stop 11/16/16 at 15:21; Status DC Metoprolol Tartrate (Lopressor) 50 mg BID PO Last administered on 11/16/16 20: 40; Start 11/16/16 at 21:00; Stop 11/17/16 at 04:58; Status DC Metoprolol Tartrate (Lopressor) 25 mg 1X ONCE PO Last administered on 16:23; Start 11/16/16 at 16:00; Stop 11/16/16 at 16:01; Status DC Albuterol Sulfate (Ventolin Neb Soln) 2.5 mg PRN Q6HRS PRN NEB SHORTNESS OF BREATH Last administered on 11/16/16 22:27; Start 11/16/16 at 22:15 Throat Lozenges (Chloraseptic) 1 spray PRN Q2HR PRN PO SORE THROAT Last administered on 11/17/16 00:04; Start 11/16/16 at 22:15 Epinephrine (S2 Racepinephrine) 0.5 ml 1X ONCE NEB Last administered on 22:33; Start 11/16/16 at 23:00; Stop 11/16/16 at 23:01; Status DC Calcium Carbonate/ Glycine (Tums) 500 mg 1X ONCE PO Last administered on 03:55; Start 11/17/16 at 04:00; Stop 11/17/16 at 04:01; Status DC Metoprolol Tartrate 50 mg 50 mg BID PO Last administered on 11/19/16 08:10; Start 11/17/16 at 09:00; Stop 11/20/16 at 09:21; Status DC Bacitracin 70873 unit/Sodium Chloride 250 ml @ 0 mls/hr 1X ONCE IRR Last administered on 11/17/16 11:36; Start 11/17/16 at 09:00; Stop 11/17/16 at 09:01 ; Status DC Cefazolin Sodium/ Dextrose 50 ml @ 100 mls/hr 1X ONCE IV Last administered on 11/17/16 11:37; Start 11/17/16 at 08:45; Stop 11/17/16 at 09:14; Status DC Cefazolin Sodium/ Dextrose 50 ml @ As Directed STK-MED ONCE IV ; Start 11/17/16 at 09:59; Stop 11/17/16 at 10:00; Status DC Propofol 20 ml @ As Directed STK-MED ONCE IV ; Start 11/17/16 at 10:01; Stop at 10:02; Status DC Propofol (Diprivan) 20 ml @ As Directed STK-MED ONCE IV ; Start 11/17/16 at 10: 01; Stop 11/17/16 at 10:02; Status DC Lidocaine HCl 100 mg 100 mg STK-MED ONCE .ROUTE ; Start 11/17/16 at 10:01; Stop 11/17/16 at 10:02; Status DC Propofol (Diprivan) 0 ml @ As Directed STK-MED ONCE IV ; Start 11/17/16 at 10:02 ; Stop 11/17/16 at 10:03; Status DC Lidocaine/ Epinephrine (Xylocaine 2%-Epi 1:100,000) 20 ml STK-MED ONCE .ROUTE ; Start 11/17/16 at 10:14; Stop 11/17/16 at 10:15; Status DC Lidocaine/ Epinephrine 20 ml 20 ml 1X ONCE IJ Last administered on 11/17/16 11:36; Start 11/17/16 at 11:00; Stop 11/17/16 at 11:05; Status DC Cefazolin Sodium/ Dextrose 50 ml @ 100 mls/hr 1X ONCE IV ; Start 11/17/16 at 11:45; Stop 11/17/16 at 12:14; Status DC Cefazolin Sodium/ Dextrose (Ancef 2gm Premix) 50 ml @ 100 mls/hr 1X ONCE IV Last administered on 11/17/16 17:49; Start 11/17/16 at 18:00; Stop 11/17/16 at 18:29; Status DC Amlodipine Besylate 5 mg 5 mg DAILY PO Last administered on 11/18/16 09:00; Start 11/18/16 at 09:00; Stop 11/18/16 at 16:17; Status DC Magnesium Sulfate/ Dextrose (Magnesium Sulfate PREMIX 2GM) 50 ml @ 25 mls/hr PRN DAILY PRN IV for Mag < 1.7 on am labs; Start 11/18/16 at 16:15 Amlodipine Besylate (Norvasc) 10 mg DAILY PO Last administered on 11/19/16 08: 10; Start 11/19/16 at 09:00 Barium Sulfate (Varibar Thin Liquid Apple) 148 gm 1X ONCE PO Last administered on 11/19/16 11:02; Start 11/19/16 at 10:30; Stop 11/19/16 at 10:31; Status DC Nitroglycerin (Nitro-Bid Oint) 1.5 inch Q6HRS TP Last administered on 11/20/16 06:16; Start 11/19/16 at 13:00; Stop 11/20/16 at 10:50; Status DC Iohexol (Omnipaque 300 Mg/ml) 75 ml 1X ONCE IV Last administered on 11/19/16 13:45; Start 11/19/16 at 13:45; Stop 11/19/16 at 13:46; Status DC Info 1 each 1 each PRN DAILY PRN MC SEE COMMENTS; Start 11/19/16 at 14:00; Stop 11/21/16 at 13:59; Status DC Amiodarone HCl/ Dextrose (Cordarone) 518 ml @ 0 mls/hr 1X ONCE IV Last administered on 11/20/16 11:18; Start 11/20/16 at 09:15; Stop 11/20/16 at 09:22; Status DC Metoprolol Tartrate (Lopressor) 5 mg Q6H IVP Last administered on 11/22/16 05: 44; Start 11/20/16 at 10:00 Hydralazine HCl 20 mg 20 mg PRN Q4HRS PRN IVP ELEVATED BP, SEE COMMENTS Last administered on 11/21/16 11:31; Start 11/20/16 at 10:45 Amino Acids/ Electrolytes/ Dextrose (Clinimix E 4.25%-5% Solution) 1,000 ml @ 80 mls/hr [id number] IV Last administered on 11/21/16 17:00; Start 11/20/16 at 11: 00; Stop 11/21/16 at 21:59; Status DC Aspirin (Aspirin) 300 mg DAILY [place] Last administered on 11/21/16 09:40; Start at 11:00 Heparin Sodium/ Sodium Chloride 1,000 unit 1X ONCE IART Last administered on 17:15; Start 11/20/16 at 17:00; Stop 11/20/16 at 17:04; Status DC Lidocaine/Sodium Bicarbonate (Buffered Lidocaine 1%) 20 ml 1X ONCE IJ Last administered on 11/20/16 17:15; Start 11/20/16 at 17:00; Stop 11/20/16 at 17:04; Status DC Info 1 each PRN DAILY PRN MC SEE COMMENTS Last administered on 11/21/16 13:23; Start 11/20/16 at 19:30 Lidocaine/Sodium Bicarbonate 20 ml 20 ml STK-MED ONCE IJ ; Start 11/20/16 at 16: 43; Stop 11/21/16 at 11:25; Status DC Heparin Sodium/ Sodium Chloride 500 ml @ As Directed STK-MED ONCE .ROUTE ; Start 11/20/16 at 16:43; Stop 11/21/16 at 11:25; Status DC Clonidine HCl 1 patch 1 patch Tu TD Last administered on 11/21/16 12:16; Start 11/21/16 at 12:00 Sodium Chloride 75 meq/Potassium Chloride 50 meq/ Potassium Phosphate 13.6 mmol/ Magnesium Sulfate 10 meq/ Calcium Gluconate 10 meq/ Multivitamins 10 ml/Chromium / Copper/Manganese/ Seleni/Zn 1 ml/ Total Parenteral Nutrition/Amino Acids/ Dextrose/ Fat Emulsion Intravenous 1,512 ml @ 63 mls/hr TPN CONT IV Last administered on 11/21/16 21:40; Start 11/21/16 at 22:00; Stop 11/22/16 at 21:59 Amiodarone HCl/ Dextrose (Cordarone) 518 ml @ 0 mls/hr CONT PRN IV SEE I/O RECORD Last administered on 11/21/16 20:11; Start 11/21/16 at 19:30; Stop at 20:12; Status DC Fentanyl Citrate (Fentanyl 2ml Vial) 50 mcg PRN Q2HR PRN IV PAIN Last administered on 11/21/16 20:12; Start 11/21/16 at 19:45 Active Scripts Active Reported Clopidogrel (Clopidogrel Bisulfate) 75 Mg Tablet 1 Tab PO DAILY Atorvastatin Calcium 40 Mg Tablet 1 Tab PO QHS Lisinopril-Hctz 20-12.5 Mg Tab (Lisinopril/Hydrochlorothiazide) 1 Each Tablet 1 Tab PO DAILY Nifedipine Er (Nifedipine) 60 Mg Tab.er.24 1 Tab PO DAILY Vitals/I & O Vital Sign - Last 24 Hours 11/21/16 11/21/16 11/21/16 11/21/16 11:31 14:28 17:23 19:45 Temp 98.1 98.2 98.1 98.2 Pulse 73 85 85 83 Resp 20 20 B/P 162/75 158/74 158/74 175/85 Pulse Ox 96 98 O2 Delivery Room Air Room Air 11/21/16 11/21/16 11/21/16 11/21/16 20:00 20:12 20:42 21:39 Pulse 83 B/P 175/85 Pulse Ox 96 96 O2 Delivery Room Air Room Air Room Air 11/21/16 11/22/16 11/22/16 11/22/16 22:40 03:15 05:44 07:00 Temp 98.6 98.7 98.0 98.6 98.7 98.0 Pulse 71 77 77 75 Resp 18 18 18 B/P 166/72 153/78 153/78 176/70 Pulse Ox 96 97 97 O2 Delivery Room Air Room Air Room Air Intake and Output 11/21/16 11/21/16 11/22/16 15:00 23:00 07:00 Intake Total 888 ml Output Total 300 ml 400 ml Balance -300 ml 488 ml LAKHWINDER AMAYA MD Nov 22, 2016 10:31
--- NOTE | 2016-11-22 10:56 | PDOC ---
SUBJECTIVE ROS WARNER +/- CKD III? doing and feeling better today - tempted to try and eat some, but awaiting swallow eval in am CVS: no Orthopnea, no CP RESP: no SOB, no COLÓN GI: no Nausea, no Vomiting : no Dysuria, no Urgency OBJECTIVE Vital Signs Vital Signs Date Time Temp Pulse Resp B/P Pulse Ox O2 Delivery O2 Flow Rate FiO2 11/22/16 07:00 98.0 75 18 176/70 97 Room Air 98.0 I & 0 Intake and Output 11/22/16 07:00 Intake Total 888 ml Output Total 700 ml Balance 188 ml Intake Oral 0 ml IV Total 888 ml Output Urine Total 700 ml PHYSICAL EXAM Physical Exam GEN: Awake, Oriented x 2, In no distress EYES: Vision Unchanged, Conjunctiva Normal; nya-orbital ecchymosis improved EN: No EN Drainage, Mucous Membranes moist NECK: no JVD, no JVP, Supple, no Thyromegaly CVS: S1S2, + Murmur, No Gallop, No Rub,no Edema RESP: no Rales, no Rhonchi,no Acc. Muscle Use GI: BS + ve, NO Bruit, Non Tender, Non Distended : no CVA tenderness, no Suprapubic Tenderness DIAGNOSIS/ASSESSMENT Assessment & Plan ARF/ ATN: ? CAN. Not sure if Creat of 0.8 was true normal however Creat is trending down now so will see where he settles (Off of CAITLYN-i) Current fluid and E-lyte status does not necessitate emergent need for dialysis. ? CKD III - Creat was ^ when he came in too - ? Due to HCTZ + CAITLYN-i (currently off) HTN: remains uncontrolled. Current BP meds held due to NPO status. See orders for changes. ct Catapress patch until able to take PO. IV Hdyralazine for now Proteinuria - Quantitate with ratio; suspect worse after holding CAITLYN-i Marginal Anemia - watch trend COMMENT/RELEVANT DATA Meds Current Medications Medications (Trade) Dose Ordered Sig/Mamta Start Time Stop Time Status Last Admin Dose Admin Acetaminophen (Tylenol) 650 mg PRN Q4HRS PRN 11/16/16 04:53 11/17/16 20:40 650 MG Adenosine (Adenocard) 12 mg 1X ONCE 11/14/16 18:45 3/28/17 18:46 DC Adenosine (Adenoscan) 90 mg STK-MED ONCE 11/16/16 14:19 11/16/16 14:20 DC Adenosine/Sodium Chloride (Adenoscan/Iv Sodium Chloride 0.9% 50ml) 120 ml @ 200 mls/hr 1X ONCE 11/16/16 14:45 11/16/16 15:21 DC 11/16/16 14:45 200 MLS/HR Albuterol Sulfate (Ventolin Neb Soln) 2.5 mg PRN Q6HRS PRN 11/16/16 22:15 11/16/16 22:27 2.5 MG Amino Acids/ Electrolytes/ Dextrose (Clinimix E 4.25%-5% Solution) 1,000 ml @ 80 mls/hr [id number] 11/20/16 11:00 11/21/16 21:59 DC 11/21/16 17:00 80 MLS/HR Amiodarone HCl (Cordarone) 200 mg DAILY 11/15/16 17:45 11/20/16 10:50 DC 11/19/16 08:11 200 MG Amiodarone HCl/ Dextrose (Cordarone) 518 ml @ 0 mls/hr CONT PRN 11/21/16 19:30 11/21/16 20:12 DC 11/21/16 20:11 16.7 MLS/HR Amlodipine Besylate (Norvasc) 10 mg DAILY 11/19/16 09:00 11/19/16 08:10 10 MG Amlodipine Besylate 5 mg 5 mg DAILY 11/18/16 09:00 11/18/16 16:17 DC 11/18/16 09:00 5 MG Aspirin (Aspirin) 300 mg DAILY 11/20/16 11:00 11/21/16 09:40 300 MG Aspirin (Children'S Aspirin) 81 mg DAILYWBKFT 11/16/16 08:00 11/20/16 10:50 DC 11/19/16 08:11 81 MG Aspirin 81 mg 81 mg DAILYWBKFT 11/15/16 09:15 11/16/16 04:53 DC 11/15/16 10:22 81 MG Atropine Sulfate 0.5 mg 0.5 mg STK-MED ONCE 11/16/16 14:32 11/16/16 14:33 DC Bacitracin/Sodium Chloride (Bacitracin/Iv Sodium Chloride 0.9% 250ml) 250 ml @ 0 mls/hr 1X ONCE 11/17/16 09:00 11/17/16 09:01 DC 11/17/16 11:36 250 MLS/HR Barium Sulfate (Varibar Thin Liquid Apple) 148 gm 1X ONCE 11/19/16 10:30 11/19/16 10:31 DC 11/19/16 11:02 148 GM Calcium Carbonate/ Glycine (Tums) 500 mg 1X ONCE 11/17/16 04:00 11/17/16 04:01 DC 11/17/16 03:55 500 MG Cefazolin Sodium/ Dextrose (Ancef 2gm Premix) 50 ml @ 100 mls/hr 1X ONCE 11/17/16 18:00 11/17/16 18:29 DC 11/17/16 17:49 100 MLS/HR Clonidine HCl 1 patch 1 patch Tu 11/21/16 12:00 11/21/16 12:16 1 PATCH Clopidogrel Bisulfate (Plavix) 75 mg DAILYWBKFT 11/15/16 08:00 11/21/16 16:02 DC 11/19/16 08:09 75 MG Epinephrine (S2 Racepinephrine) 0.5 ml 1X ONCE 11/16/16 23:00 11/16/16 23:01 DC 11/16/16 22:33 0.5 ML Fentanyl Citrate (Fentanyl 2ml Vial) 50 mcg PRN Q2HR PRN 11/21/16 19:45 11/21/16 20:12 50 MCG Fentanyl Citrate 25 mcg 25 mcg PRN Q15MIN PRN 11/14/16 13:30 11/16/16 04:55 DC 11/14/16 13:40 25 MCG Heparin Sodium (Porcine) 2,500 unit 1X ONCE 11/16/16 14:15 11/16/16 14:16 DC 11/16/16 15:05 2,500 UNIT Heparin Sodium (Porcine) 4000 unit 4,000 unit 1X ONCE 11/15/16 09:45 11/15/16 09:46 DC 11/15/16 11:21 4,000 UNIT Heparin Sodium/ Dextrose 500 ml @ 0 mls/hr CONT PRN 11/15/16 09:15 11/17/16 08:28 DC 11/15/16 11:18 19.9 MLS/HR Heparin Sodium/ Sodium Chloride 500 ml @ As Directed STK-MED ONCE 11/20/16 16:43 11/21/16 11:25 DC Hydralazine HCl (Apresoline) 10 mg PRN Q4HRS PRN 11/14/16 16:30 11/20/16 10:50 DC 11/20/16 06:21 10 MG Hydralazine HCl 20 mg 20 mg PRN Q4HRS PRN 11/20/16 10:45 11/21/16 11:31 20 MG Info 1 each PRN DAILY PRN 11/20/16 19:30 11/21/16 13:23 1 EACH Info (Do NOT chart on this entry -- for MONITORING) 1 each PRN DAILY PRN 11/19/16 14:00 11/21/16 13:59 DC Iodixanol (Visipaque 320) 100 ml 1X ONCE 11/16/16 14:15 11/16/16 14:16 DC 11/16/16 14:59 98 ML Iohexol (Omnipaque 300 Mg/ml) 75 ml 1X ONCE 11/19/16 13:45 11/19/16 13:46 DC 11/19/16 13:45 75 ML Lidocaine HCl 20 ml 1X ONCE 11/16/16 14:15 11/16/16 14:16 DC 11/16/16 15:01 2 ML Lidocaine HCl 100 mg 100 mg STK-MED ONCE 11/17/16 10:01 11/17/16 10:02 DC Lidocaine/ Epinephrine (Xylocaine 2%-Epi 1:100,000) 20 ml STK-MED ONCE 11/17/16 10:14 11/17/16 10:15 DC Lidocaine/ Epinephrine 20 ml 20 ml 1X ONCE 11/17/16 11:00 11/17/16 11:05 DC 11/17/16 11:36 30 ML Lidocaine/Sodium Bicarbonate (Buffered Lidocaine 1%) 20 ml 1X ONCE 11/20/16 17:00 11/20/16 17:04 DC 11/20/16 17:15 20 ML Lidocaine/Sodium Bicarbonate 20 ml 20 ml STK-MED ONCE 11/20/16 16:43 11/21/16 11:25 DC Magnesium Sulfate/ Dextrose (Magnesium Sulfate PREMIX 2GM) 50 ml @ 25 mls/hr PRN DAILY PRN 11/18/16 16:15 Metoprolol Tartrate (Lopressor) 5 mg Q6H 11/20/16 10:00 11/22/16 05:44 5 MG Metoprolol Tartrate 50 mg 50 mg BID 11/17/16 09:00 11/20/16 09:21 DC 11/19/16 08:10 50 MG Midazolam HCl (Versed) 2 mg 1X ONCE 11/16/16 14:15 11/16/16 14:16 DC 11/16/16 15:03 3 MG Nitroglycerin (Nitro-Bid Oint) 1.5 inch Q6HRS 11/19/16 13:00 11/20/16 10:50 DC 11/20/16 06:16 1.5 INCH Nitroglycerin (Nitroglycerin) 200 mcg 1X ONCE 11/16/16 14:15 11/16/16 14:16 DC 11/16/16 15:04 200 MCG Ondansetron HCl (Zofran) 4 mg PRN Q8HRS PRN 11/14/16 15:15 11/15/16 15:14 DC Propofol (Diprivan) 0 ml @ As Directed STK-MED ONCE 11/17/16 10:02 11/17/16 10:03 DC Sodium Chloride (Iv Sodium Chloride 0.9% 500ml Bag) 500 ml @ 500 mls/hr 1X ONCE 11/14/16 14:00 11/14/16 14:59 DC 11/14/16 16:02 500 MLS/HR Sodium Chloride (Iv Sodium Chloride 0.9% 1000ml Bag) 1,000 ml @ 75 mls/hr [id number] 11/15/16 11:15 11/20/16 10:50 DC 11/20/16 06:27 75 MLS/HR Sodium Chloride 75 meq/Potassium Chloride 50 meq/ Potassium Phosphate 13.6 mmol/Magnesium Sulfate 10 meq/ Calcium Gluconate 10 meq/ Multivitamins 10 ml/Chromium/ Copper/Manganese/ Seleni/Zn 1 ml/ Total Parenteral Nutrition/Amino Acids/Dextrose/ Fat Emulsion Intravenous 1,512 ml @ 63 mls/hr TPN CONT 11/21/16 22:00 11/22/16 21:59 11/21/16 21:40 63 MLS/HR Throat Lozenges (Chloraseptic) 1 spray PRN Q2HR PRN 3/30/17 22:15 11/17/16 00:04 1 SPRAY Verapamil HCl (Verapamil) 2.5 mg 1X ONCE 11/16/16 14:15 11/16/16 14:16 DC 11/16/16 15:04 2.5 MG Lab Laboratory Tests Test 11/22/16 06:00 Sodium Level 145mmol/L (136-145) Potassium Level 4.1mmol/L (3.5-5.1) Chloride Level 110mmol/L (98-107) Carbon Dioxide Level 25mmol/L (21-32) Anion Gap 10 (6-14) Blood Urea Nitrogen 42mg/dL (8-26) Creatinine 1.5mg/dL (0.7-1.3) Estimated GFR (Cockcroft-Gault) 44.3 Glucose Level 144mg/dL (70-99) Calcium Level 8.6mg/dL (8.5-10.1) Phosphorus Level 3.6mg/dL (2.6-4.7) Magnesium Level 2.2mg/dL (1.8-2.4) Albumin 2.5g/dL (3.4-5.0) GORDO HARRISON MD Nov 22, 2016 10:56
[2016-11-22 11:00] VITALS: BP 185/85
[2016-11-22] MEDS ORDERED: hydrALAZINE 20 MG/ML VIAL. IVP PRN (12:15)
--- NOTE | 2016-11-22 12:48 | PDOC ---
CARDIO Progress Notes Date and Time Date of Service 11/22/2016 Time of Evaluation 1244 Subjective Subjective: No Chest Pain, No shortness of breath, No Palpitations Vitals Vitals Vital Signs Date Time Temp Pulse Resp B/P Pulse Ox O2 Delivery O2 Flow Rate FiO2 11/22/16 07:00 98.0 75 18 176/70 97 Room Air 98.0 Weight Weight [ ] Input and Output Intake and Output Intake and Output 11/22/16 07:00 Intake Total 888 ml Output Total 700 ml Balance 188 ml Intake Oral 0 ml IV Total 888 ml Output Urine Total 700 ml Laboratory Labs Laboratory Tests Test 11/22/16 06:00 Sodium Level 145mmol/L (136-145) Potassium Level 4.1mmol/L (3.5-5.1) Chloride Level 110mmol/L (98-107) Carbon Dioxide Level 25mmol/L (21-32) Anion Gap 10 (6-14) Blood Urea Nitrogen 42mg/dL (8-26) Creatinine 1.5mg/dL (0.7-1.3) Estimated GFR (Cockcroft-Gault) 44.3 Glucose Level 144mg/dL (70-99) Calcium Level 8.6mg/dL (8.5-10.1) Phosphorus Level 3.6mg/dL (2.6-4.7) Magnesium Level 2.2mg/dL (1.8-2.4) Albumin 2.5g/dL (3.4-5.0) Microbiology Micro Microbiology 11/19/16 Urine Culture - Final, Complete 11/19/16 Urine Culture Result 1 (DARNELL) - Final, Complete Physical Exam HEENT: Neck Supple W Full Motion Chest: Other (left pectoral incision c/d/i - no evidence of erythema, edema, steri-strips intact; truncal ecchymosis) LUNGS: Clear to Auscultation Heart: S1S2, RRR (SR, episode of sutained VT yesterday), murmurs (2/6 systolic murmur to LLS border), other (SR; V-paced; PVC) Abdomen: Soft N/T Extremities: Other (1+ bilateral LE edema) Neurology: alert, oriented, follow commands Diagnostic Tests Chest X-ray: Other (no pneumothorax) Assessment Assessment 1. Sustained VT; symptomatic s/p dual chamber Biotronik ICD for prevention of SCD anti-arrhythmic therapy converted to IV as currently NPO after failed video swallow remains on amiodarone gtt ICD site healing well 2. CAD PCI/ORQUIDEA 11/2015 to OM1 and LCx cardiac cath demonstrating patent stents hold clopidogrel as NPO and convert ASA to suppository 3. chronic diastolic CHF, preserved LVEF of 55-60% compensated with medical management BB now IV while NPO 4. HTN control with meds 5. hyperlipidemia LDLs controlled with statin therapy 6. dysphagia failed video swallow remains NPO RICHARD CONSTANTINO [employer] SET UP OPERATOR Nov 22, 2016 12:48
[2016-11-22] MEDS ORDERED: BARIUM SULFATE 40% (APPLE) 148 GM PWD. PO ONE (14:30)
[2016-11-22] MEDS: TPN PER PHARMACY MC PRN (14:38)
[2016-11-22 15:00] VITALS: BP 184/74
--- NOTE | 2016-11-22 15:19 | RAD ---
Video dysphasia study, 11/22/2016: History: Difficulty swallowing, pharyngeal hematoma The swallowing mechanism was examined in the lateral projection while the patient ingested a small amount of thin and thickened barium. 0.8 minutes of fluoroscopy time was utilized. One video loop was recorded by a member of the speech Department. When ingesting a small amount of the liquid barium there is lack of epiglottic inversion. There is severe smooth narrowing of the esophagus in the lower cervical region associated with prevertebral soft tissue thickening. A small amount of barium does pass through the cervical esophagus. There was laryngeal penetration of the liquid barium extending down to the level of the vocal cords with minimal juan aspiration. The exam was terminated at this point due to the obstructive findings. 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 There is associated lack of epiglottic inversion with deep laryngeal penetration and minimal juan aspiration during this limited exam.
[2016-11-22] MEDS: FENTANYL PF 100 MCG/2 ML VIAL. IV PRN (16:44)
[2016-11-22 19:15] VITALS: BP 105/74
[2016-11-22] MEDS: AMIODARONE 900 MG in IV DEXTROSE 5% 500 ML IV PRN (20:40)
[2016-11-22] MEDS ORDERED: TOTAL PARENTERAL NUTRITION IV SCH ×10 (22:00)
[2016-11-22] MEDS ORDERED: [UNRECOGNIZED DRUG - OTHER] IV SCH ×10 (22:00)
[2016-11-22] MEDS ORDERED: DEXTROSE 70% IV SCH ×10 (22:00)
[2016-11-22] MEDS ORDERED: AMINO ACIDS IV SCH ×10 (22:00)
[2016-11-22 22:15] VITALS: BP 169/75
[2016-11-23 02:40] VITALS: BP 180/79
[2016-11-23] MEDS: METOPROLOL TARTRATE 5 MG/5 ML VIAL. IVP SCH ×4 (04:15→21:11)
[2016-11-23 06:52] LABS: ALBUMIN 2.5 g/dL (3.4-5.0); CALCIUM 8.7 mg/dL (8.5-10.1); CREATININE 1.6 mg/dL (0.7-1.3); GFR 41.1; PHOSPHORUS 3.6 mg/dL (2.6-4.7); POTASSIUM 4.2 mmol/L (3.5-5.1)
[2016-11-23 07:50] VITALS: BP 184/105
[2016-11-23] MEDS: AMLODIPINE BESYLATE 10 MG TABLET. PO SCH (09:00)
--- NOTE | 2016-11-23 09:13 | PDOC ---
SUBJECTIVE ROS CKD III Doign better overall CVS: no Orthopnea, no CP RESP: no SOB, no COLÓN GI: no Nausea, no Vomiting : no Dysuria, no Urgency OBJECTIVE Vital Signs Vital Signs Date Time Temp Pulse Resp B/P Pulse Ox O2 Delivery O2 Flow Rate FiO2 11/23/16 07:50 97.6 79 19 184/105 98 Room Air 97.6 I & 0 Intake and Output 11/23/16 07:00 Intake Total 1852 ml Output Total 1250 ml Balance 602 ml Intake Oral 0 ml IV Total 1852 ml Output Urine Total 1250 ml # Bowel Movements 1 PHYSICAL EXAM Physical Exam GEN: Awake, Oriented x 2, In no distress EYES: Vision Unchanged, Conjunctiva Normal; nya-orbital ecchymosis improved EN: No EN Drainage, Mucous Membranes moist NECK: no JVD, no JVP, Supple, no Thyromegaly CVS: S1S2, + Murmur, No Gallop, No Rub,no Edema RESP: no Rales, no Rhonchi,no Acc. Muscle Use GI: BS + ve, NO Bruit, Non Tender, Non Distended : no CVA tenderness, no Suprapubic Tenderness DIAGNOSIS/ASSESSMENT Assessment & Plan ARF/ ATN: I suspect this has resolved off of CAITLYN-i and HCTZ, cannot r/o a renovascular component to the same. RAD today ? CKD III - Creat was ^ when he came in too - ? Due to HCTZ + CAITLYN-i (currently off) HTN: remains uncontrolled. Current BP meds held due to NPO status. See orders for changes. ct Catapress patch until able to take PO. added IV Hydralazine for now. ? Renovascular etio - check Duplex Proteinuria - re- Quantitate with ratio; cannot believe there was no creat in Urine. non obstructing ? kidney stone: currently asymptomatic, informed pt re s/s to look for Marginal Anemia - watch trend COMMENT/RELEVANT DATA Meds Current Medications Medications (Trade) Dose Ordered Sig/Mamta Start Time Stop Time Status Last Admin Dose Admin Acetaminophen (Tylenol) 650 mg PRN Q4HRS PRN 11/16/16 04:53 11/17/16 20:40 650 MG Adenosine (Adenocard) 12 mg 1X ONCE 11/14/16 18:45 11/14/16 18:46 DC Adenosine (Adenoscan) 90 mg STK-MED ONCE 3/30/17 14:19 11/16/16 14:20 DC Adenosine/Sodium Chloride (Adenoscan/Iv Sodium Chloride 0.9% 50ml) 120 ml @ 200 mls/hr 1X ONCE 11/16/16 14:45 11/16/16 15:21 DC 11/16/16 14:45 200 MLS/HR Albuterol Sulfate (Ventolin Neb Soln) 2.5 mg PRN Q6HRS PRN 11/16/16 22:15 11/16/16 22:27 2.5 MG Amino Acids/ Electrolytes/ Dextrose (Clinimix E 4.25%-5% Solution) 1,000 ml @ 80 mls/hr [id number] 11/20/16 11:00 11/21/16 21:59 DC 11/21/16 17:00 80 MLS/HR Amiodarone HCl (Cordarone) 200 mg DAILY 11/15/16 17:45 11/20/16 10:50 DC 11/19/16 08:11 200 MG Amiodarone HCl/ Dextrose (Cordarone) 518 ml @ 0 mls/hr CONT PRN 11/22/16 19:15 11/22/16 20:40 16.7 MLS/HR Amlodipine Besylate (Norvasc) 10 mg DAILY 11/19/16 09:00 11/19/16 08:10 10 MG Amlodipine Besylate 5 mg 5 mg DAILY 11/18/16 09:00 11/18/16 16:17 DC 11/18/16 09:00 5 MG Aspirin (Aspirin) 300 mg DAILY 11/20/16 11:00 11/21/16 09:40 300 MG Aspirin (Children'S Aspirin) 81 mg [id number] 11/16/16 08:00 11/20/16 10:50 DC 11/19/16 08:11 81 MG Aspirin 81 mg 81 mg [id number] 11/15/16 09:15 11/16/16 04:53 DC 11/15/16 10:22 81 MG Atropine Sulfate 0.5 mg 0.5 mg STK-MED ONCE 11/16/16 14:32 11/16/16 14:33 DC Bacitracin/Sodium Chloride (Bacitracin/Iv Sodium Chloride 0.9% 250ml) 250 ml @ 0 mls/hr 1X ONCE 11/17/16 09:00 11/17/16 09:01 DC 11/17/16 11:36 250 MLS/HR Barium Sulfate (Varibar Thin Liquid Apple) 148 gm 1X ONCE 11/19/16 10:30 11/19/16 10:31 DC 11/19/16 11:02 148 GM Barium Sulfate 148 gm 148 gm 1X ONCE 11/22/16 14:30 11/22/16 14:31 DC 11/22/16 14:56 148 GM Calcium Carbonate/ Glycine (Tums) 500 mg 1X ONCE 11/17/16 04:00 11/17/16 04:01 DC 11/17/16 03:55 500 MG Cefazolin Sodium/ Dextrose (Ancef 2gm Premix) 50 ml @ 100 mls/hr 1X ONCE 11/17/16 18:00 11/17/16 18:29 DC 11/17/16 17:49 100 MLS/HR Clonidine HCl (Catapres Tts-2) 1 patch Tu 11/21/16 12:00 11/21/16 12:16 1 PATCH Clopidogrel Bisulfate (Plavix) 75 mg [id number] 11/15/16 08:00 11/21/16 16:02 DC 11/19/16 08:09 75 MG Epinephrine (S2 Racepinephrine) 0.5 ml 1X ONCE 11/16/16 23:00 11/16/16 23:01 DC 11/16/16 22:33 0.5 ML Fentanyl Citrate (Fentanyl 2ml Vial) 50 mcg PRN Q2HR PRN 11/21/16 19:45 11/22/16 16:44 50 MCG Fentanyl Citrate 25 mcg 25 mcg PRN Q15MIN PRN 11/14/16 13:30 11/16/16 04:55 DC 11/14/16 13:40 25 MCG Heparin Sodium (Porcine) 2,500 unit 1X ONCE 11/16/16 14:15 11/16/16 14:16 DC 11/16/16 15:05 2,500 UNIT Heparin Sodium (Porcine) 4000 unit 4,000 unit 1X ONCE 11/15/16 09:45 11/15/16 09:46 DC 11/15/16 11:21 4,000 UNIT Heparin Sodium/ Dextrose 500 ml @ 0 mls/hr CONT PRN 11/15/16 09:15 11/17/16 08:28 DC 11/15/16 11:18 19.9 MLS/HR Heparin Sodium/ Sodium Chloride 500 ml @ As Directed STK-MED ONCE 11/20/16 16:43 11/21/16 11:25 DC Hydralazine HCl (Apresoline) 10 mg PRN Q4HRS PRN 11/14/16 16:30 11/20/16 10:50 DC 11/20/16 06:21 10 MG Hydralazine HCl 20 mg 20 mg PRN Q4HRS PRN 11/22/16 12:15 UNV Info 1 each PRN DAILY PRN 11/20/16 19:30 11/22/16 14:38 1 EACH Info (Do NOT chart on this entry -- for MONITORING) 1 each PRN DAILY PRN 11/19/16 14:00 11/21/16 13:59 DC Iodixanol (Visipaque 320) 100 ml 1X ONCE 11/16/16 14:15 11/16/16 14:16 DC 11/16/16 14:59 98 ML Iohexol (Omnipaque 300 Mg/ml) 75 ml 1X ONCE 11/19/16 13:45 11/19/16 13:46 DC 11/19/16 13:45 75 ML Lidocaine HCl 20 ml 1X ONCE 11/16/16 14:15 11/16/16 14:16 DC 11/16/16 15:01 2 ML Lidocaine HCl 100 mg 100 mg STK-MED ONCE 11/17/16 10:01 11/17/16 10:02 DC Lidocaine/ Epinephrine (Xylocaine 2%-Epi 1:100,000) 20 ml STK-MED ONCE 11/17/16 10:14 11/17/16 10:15 DC Lidocaine/ Epinephrine 20 ml 20 ml 1X ONCE 11/17/16 11:00 11/17/16 11:05 DC 11/17/16 11:36 30 ML Lidocaine/Sodium Bicarbonate (Buffered Lidocaine 1%) 20 ml 1X ONCE 11/20/16 17:00 11/20/16 17:04 DC 11/20/16 17:15 20 ML Lidocaine/Sodium Bicarbonate 20 ml 20 ml STK-MED ONCE 11/20/16 16:43 11/21/16 11:25 DC Magnesium Sulfate/ Dextrose (Magnesium Sulfate PREMIX 2GM) 50 ml @ 25 mls/hr PRN DAILY PRN 11/18/16 16:15 Metoprolol Tartrate (Lopressor) 25 mg 1X ONCE 11/16/16 16:00 11/16/16 16:01 DC 11/16/16 16:23 25 MG Metoprolol Tartrate 5 mg 5 mg Q6H 11/20/16 10:00 11/23/16 04:15 5 MG Metoprolol Tartrate 50 mg 50 mg BID 11/17/16 09:00 11/20/16 09:21 DC 11/19/16 08:10 50 MG Midazolam HCl (Versed) 2 mg 1X ONCE 11/16/16 14:15 11/16/16 14:16 DC 11/16/16 15:03 3 MG Nitroglycerin (Nitro-Bid Oint) 1.5 inch Q6HRS 11/19/16 13:00 11/20/16 10:50 DC 11/20/16 06:16 1.5 INCH Nitroglycerin (Nitroglycerin) 200 mcg 1X ONCE 11/16/16 14:15 11/16/16 14:16 DC 11/16/16 15:04 200 MCG Ondansetron HCl (Zofran) 4 mg PRN Q8HRS PRN 11/14/16 15:15 11/15/16 15:14 DC Propofol (Diprivan) 0 ml @ As Directed STK-MED ONCE 11/17/16 10:02 11/17/16 10:03 DC Sodium Chloride (Iv Sodium Chloride 0.9% 500ml Bag) 500 ml @ 500 mls/hr 1X ONCE 11/14/16 14:00 11/14/16 14:59 DC 11/14/16 16:02 500 MLS/HR Sodium Chloride (Iv Sodium Chloride 0.9% 1000ml Bag) 1,000 ml @ 75 mls/hr [id number] 11/15/16 11:15 11/20/16 10:50 DC 11/20/16 06:27 75 MLS/HR Sodium Chloride/ Potassium Chloride/ Potassium Phosphate/ Magnesium Sulfate/ Calcium Gluconate/ Multivitamins/ Chromium/Copper/ Manganese/Seleni/ Zn/Total Parenteral Nutrition/Amino Acids/Dextrose/ Fat Emulsion Intravenous (Sodium Chloride/ Potassium Phosphate/Calc... 1,512 ml @ 63 mls/hr TPN CONT 11/22/16 22:00 11/23/16 21:59 11/22/16 20:41 63 MLS/HR Throat Lozenges (Chloraseptic) 1 spray PRN Q2HR PRN 11/16/16 22:15 11/17/16 00:04 1 SPRAY Verapamil HCl (Verapamil) 2.5 mg 1X ONCE 11/16/16 14:15 11/16/16 14:16 DC 11/16/16 15:04 2.5 MG Lab Laboratory Tests Test 11/23/16 06:15 Sodium Level 144mmol/L (136-145) Potassium Level 4.2mmol/L (3.5-5.1) Chloride Level 110mmol/L (98-107) Carbon Dioxide Level 24mmol/L (21-32) Anion Gap 10 (6-14) Blood Urea Nitrogen 41mg/dL (8-26) Creatinine 1.6mg/dL (0.7-1.3) Estimated GFR (Cockcroft-Gault) 41.1 Glucose Level 117mg/dL (70-99) Calcium Level 8.7mg/dL (8.5-10.1) Phosphorus Level 3.6mg/dL (2.6-4.7) Magnesium Level 2.2mg/dL (1.8-2.4) Albumin 2.5g/dL (3.4-5.0) GORDO HARRISON MD Nov 23, 2016 09:13
--- NOTE | 2016-11-23 09:45 | PDOC ---
PROGRESS NOTES Subjective Subjective Pt awake and pleasant. Pt states his ST and hoarseness is improving every day. Pt continues to deny CP, SOB, or presyncopal symptoms since admission. Objective Objective Pt awake and alert. NAD. VSS. Afebrile. Lungs CTA bilat. Resp even and unlabored. Heart with RRR. No murmurs. Incision site of defib CDI. Vital Signs Date Time Temp Pulse Resp B/P Pulse Ox O2 Delivery O2 Flow Rate FiO2 11/23/16 07:50 97.6 79 19 184/105 98 Room Air 97.6 11/18/16 08:00 2.0 Intake and Output 11/23/16 06:59 Intake Total 1852 ml Output Total 1250 ml Balance 602 ml Intake Oral 0 ml IV Total 1852 ml Output Urine Total 1250 ml # Bowel Movements 1 Assessment Assessment Problems Medical Problems: (1) Acute renal failure Status: Acute (2) Elevated troponin Status: Acute (3) Pre-syncope Status: Acute (4) Syncope Status: Acute Plan Plan of Care 1. Syncopal episode secondary to VT -Cardiology consulting -s/p dual chamber Biotronik ICD for prevention of SCD -anti-arrhythmic therapy converted to IV as currently NPO after failed video swallow -f/u for wound check in one week and 3 months for ICD interrogation in office 2. Dysphagia secondary to pharyngeal hematoma -Failed video swallow, pt NPO. Monitoring on a day-day basis. -hold clopidogrel as NPO and convert ASA to suppository -BB now IV while NPO -TPN per PICC placed on 11/20 Pt will need SNF placement upon Dc. SNF refusing acceptance of pt while on TPN. Will monitor pt on a day-day basis for shrinkage of hematoma to initiate PO. Comment Review of Relevant I have reviewed the following items buck (where applicable) has been applied. Labs Laboratory Tests Test 11/22/16 06:00 11/23/16 06:15 Sodium Level 145mmol/L (136-145) 144mmol/L (136-145) Potassium Level 4.1mmol/L (3.5-5.1) 4.2mmol/L (3.5-5.1) Chloride Level 110mmol/L (98-107) 110mmol/L (98-107) Carbon Dioxide Level 25mmol/L (21-32) 24mmol/L (21-32) Anion Gap 10 (6-14) 10 (6-14) Blood Urea Nitrogen 42mg/dL (8-26) 41mg/dL (8-26) Creatinine 1.5mg/dL (0.7-1.3) 1.6mg/dL (0.7-1.3) Estimated GFR (Cockcroft-Gault) 44.3 41.1 Glucose Level 144mg/dL (70-99) 117mg/dL (70-99) Calcium Level 8.6mg/dL (8.5-10.1) 8.7mg/dL (8.5-10.1) Phosphorus Level 3.6mg/dL (2.6-4.7) 3.6mg/dL (2.6-4.7) Magnesium Level 2.2mg/dL (1.8-2.4) 2.2mg/dL (1.8-2.4) Albumin 2.5g/dL (3.4-5.0) 2.5g/dL (3.4-5.0) Laboratory Tests Test 11/23/16 06:15 Sodium Level 144mmol/L (136-145) Potassium Level 4.2mmol/L (3.5-5.1) Chloride Level 110mmol/L (98-107) Carbon Dioxide Level 24mmol/L (21-32) Anion Gap 10 (6-14) Blood Urea Nitrogen 41mg/dL (8-26) Creatinine 1.6mg/dL (0.7-1.3) Estimated GFR (Cockcroft-Gault) 41.1 Glucose Level 117mg/dL (70-99) Calcium Level 8.7mg/dL (8.5-10.1) Phosphorus Level 3.6mg/dL (2.6-4.7) Magnesium Level 2.2mg/dL (1.8-2.4) Albumin 2.5g/dL (3.4-5.0) Microbiology 11/19/16 Urine Culture - Final, Complete 11/19/16 Urine Culture Result 1 (DARNELL) - Final, Complete Medications Current Medications Fentanyl Citrate 25 mcg 25 mcg PRN Q15MIN PRN IV pain greater than 3 for 3 dose Last administered on 11/14/16t 13:40; Start 11/14/16 at 13:30; Stop at 04:55; Status DC Sodium Chloride (Iv Sodium Chloride 0.9% 500ml Bag) 500 ml @ 500 mls/hr 1X ONCE IV Last administered on 11/14/16 16:02; Start 11/14/16 at 14:00; Stop at 14:59; Status DC Ondansetron HCl (Zofran) 4 mg PRN Q8HRS PRN IV NAUSEA/VOMITING; Start 11/14/16 at 15:15; Stop 11/15/16 at 15:14; Status DC Fentanyl Citrate (Fentanyl 2ml Vial) 50 mcg PRN Q2HR PRN IV PAIN; Start at 15:15; Stop 11/15/16 at 15:14; Status DC Acetaminophen (Tylenol) 650 mg PRN Q4HRS PRN PO FEVER; Start 11/14/16 at 15:15 ; Stop 11/15/16 at 15:14; Status DC Clopidogrel Bisulfate (Plavix) 75 mg DAILYWBKFT PO Last administered on 08:09; Start 11/15/16 at 08:00; Stop 11/21/16 at 16:02; Status DC Metoprolol Tartrate (Lopressor) 12.5 mg BID PO Last administered on 11/15/16 08:27; Start 11/14/16 at 21:00; Stop 11/15/16 at 09:26; Status DC Hydralazine HCl 10 mg 10 mg PRN Q4HRS PRN IVP ELEVATED BP, SEE COMMENTS Last administered on 11/20/16 06:21; Start 11/14/16 at 16:30; Stop 11/20/16 at 10:50; Status DC Amiodarone HCl 150 mg/Dextrose 103 ml @ 618 mls/hr 1X ONCE IV Last administered on 11/14/16 18:54; Start 11/14/16 at 19:00; Stop 11/14/16 at 19:09 ; Status DC Amiodarone HCl/ Dextrose (Cordarone) 518 ml @ 0 mls/hr CONT PRN IV SEE I/O RECORD Last administered on 11/14/16 19:04; Start 11/14/16 at 19:00; Stop 11/15 at 18:09; Status DC Adenosine (Adenocard) 12 mg 1X ONCE IV Last administered on 11/14/16 18:40; Start 11/14/16 at 18:45; Stop 11/14/16 at 18:46; Status DC Adenosine (Adenocard) 12 mg 1X ONCE IV ; Start 11/14/16 at 18:45; Stop at 18:46; Status DC Metoprolol Tartrate (Lopressor) 25 mg BID PO Last administered on 11/16/16 09: 23; Start 11/15/16 at 21:00; Stop 11/16/16 at 15:56; Status DC Aspirin 81 mg 81 mg DAILYWBKFT PO Last administered on 11/15/16 10:22; Start 11/15/16 at 09:15; Stop 11/16/16 at 04:53; Status DC Heparin Sodium/ Dextrose 500 ml @ 0 mls/hr CONT PRN IV SEE I/O RECORD Last administered on 11/15/16 11:18; Start 11/15/16 at 09:15; Stop 11/17/16 at 08:28 ; Status DC Heparin Sodium (Porcine) 2,100 unit PRN Q6HRS PRN IV FOR UFH LEVEL LESS THAN 0.2; Start 11/15/16 at 09:15; Stop 11/17/16 at 08:28; Status DC Metoprolol Tartrate (Lopressor) 12.5 mg 1X ONCE PO Last administered on 10:22; Start 11/15/16 at 09:45; Stop 11/15/16 at 09:46; Status DC Heparin Sodium (Porcine) 4000 unit 4,000 unit 1X ONCE IV Last administered on 11/15/16 11:21; Start 11/15/16 at 09:45; Stop 11/15/16 at 09:46; Status DC Sodium Chloride (Iv Sodium Chloride 0.9% 1000ml Bag) 1,000 ml @ 75 mls/hr [id number] IV Last administered on 11/20/16 06:27; Start 11/15/16 at 11:15; Stop 11/20/16 at 10:50; Status DC Amiodarone HCl (Cordarone) 200 mg DAILY PO ; Start 11/16/16 at 09:00; Stop 11/16 at 09:00; Status DC Acetaminophen (Tylenol) 650 mg Q4HRS PRN PO Pain ; Start 11/15/16 at 17:30; Status Cancel Acetaminophen (Tylenol) 650 mg PRN Q6HRS PRN PO MILD PAIN / TEMP; Start at 17:45; Stop 11/15/16 at 17:45; Status DC Acetaminophen (Tylenol) 650 mg PRN Q4HRS PRN PO MILD PAIN / TEMP Last administered on 11/15/16 17:54; Start 11/15/16 at 17:45; Stop 11/16/16 at 04:53 ; Status DC Amiodarone HCl (Cordarone) 200 mg DAILY PO Last administered on 11/19/16 08:11 ; Start 11/15/16 at 17:45; Stop 11/20/16 at 10:50; Status DC Acetaminophen (Tylenol) 650 mg PRN Q4HRS PRN PO MILD PAIN / TEMP Last administered on 11/17/16 20:40; Start 11/16/16 at 04:53 Aspirin (Children'S Aspirin) 81 mg DAILYWBKFT PO Last administered on 11/19/16 08:11; Start 11/16/16 at 08:00; Stop 11/20/16 at 10:50; Status DC Verapamil HCl (Verapamil) 5 mg STK-MED ONCE .ROUTE ; Start 11/16/16 at 13:49; Stop 11/16/16 at 13:50; Status DC Midazolam HCl (Versed) 2 mg STK-MED ONCE .ROUTE ; Start 11/16/16 at 13:49; Stop 11/16/16 at 13:50; Status DC Fentanyl Citrate (Fentanyl 2ml Vial) 100 mcg STK-MED ONCE .ROUTE ; Start at 13:49; Stop 11/16/16 at 13:50; Status DC Heparin Sodium (Porcine) 10,000 unit STK-MED ONCE .ROUTE ; Start 11/16/16 at 13: 49; Stop 11/16/16 at 13:50; Status DC Midazolam HCl (Versed) 2 mg STK-MED ONCE .ROUTE ; Start 11/16/16 at 13:59; Stop 11/16/16 at 14:00; Status DC Fentanyl Citrate (Fentanyl 2ml Vial) 100 mcg STK-MED ONCE .ROUTE ; Start at 13:59; Stop 11/16/16 at 14:00; Status DC Nitroglycerin (Nitroglycerin) 200 mcg 1X ONCE IART Last administered on 15:04; Start 11/16/16 at 14:15; Stop 11/16/16 at 14:16; Status DC Verapamil HCl (Verapamil) 2.5 mg 1X ONCE IART Last administered on 11/16/16 15:04; Start 11/16/16 at 14:15; Stop 11/16/16 at 14:16; Status DC Heparin Sodium (Porcine) 2,500 unit 1X ONCE IART Last administered on 15:05; Start 11/16/16 at 14:15; Stop 11/16/16 at 14:16; Status DC Heparin Sodium/ Sodium Chloride 1,000 unit 1X ONCE IART Last administered on 15:04; Start 11/16/16 at 14:15; Stop 11/16/16 at 14:16; Status DC Midazolam HCl (Versed) 2 mg 1X ONCE IV Last administered on 11/16/16 15:03; Start 11/16/16 at 14:15; Stop 11/16/16 at 14:16; Status DC Fentanyl Citrate (Fentanyl 2ml Vial) 100 mcg 1X ONCE IV Last administered on 15:03; Start 11/16/16 at 14:15; Stop 11/16/16 at 14:16; Status DC Iodixanol (Visipaque 320) 100 ml 1X ONCE IART Last administered on 11/16/16 14:59; Start 11/16/16 at 14:15; Stop 11/16/16 at 14:16; Status DC Lidocaine HCl 20 ml 1X ONCE IJ Last administered on 11/16/16 15:01; Start at 14:15; Stop 11/16/16 at 14:16; Status DC Info (Do NOT chart on this entry -- for MONITORING) 1 each PRN DAILY PRN MC SEE COMMENTS; Start 11/16/16 at 14:15; Stop 11/18/16 at 14:14; Status DC Adenosine (Adenoscan) 90 mg STK-MED ONCE IV ; Start 11/16/16 at 14:19; Stop at 14:20; Status DC Atropine Sulfate 0.5 mg 0.5 mg STK-MED ONCE .ROUTE ; Start 11/16/16 at 14:32; Stop 11/16/16 at 14:33; Status DC Adenosine/Sodium Chloride (Adenoscan/Iv Sodium Chloride 0.9% 50ml) 120 ml @ 200 mls/hr 1X ONCE IV Last administered on 11/16/16 14:45; Start 11/16/16 at 14:45; Stop 11/16/16 at 15:21; Status DC Metoprolol Tartrate (Lopressor) 50 mg BID PO Last administered on 11/16/16 20: 40; Start 11/16/16 at 21:00; Stop 11/17/16 at 04:58; Status DC Metoprolol Tartrate (Lopressor) 25 mg 1X ONCE PO Last administered on 16:23; Start 11/16/16 at 16:00; Stop 11/16/16 at 16:01; Status DC Albuterol Sulfate (Ventolin Neb Soln) 2.5 mg PRN Q6HRS PRN NEB SHORTNESS OF BREATH Last administered on 11/16/16 22:27; Start 11/16/16 at 22:15 Throat Lozenges (Chloraseptic) 1 spray PRN Q2HR PRN PO SORE THROAT Last administered on 11/17/16 00:04; Start 11/16/16 at 22:15 Epinephrine (S2 Racepinephrine) 0.5 ml 1X ONCE NEB Last administered on 22:33; Start 11/16/16 at 23:00; Stop 11/16/16 at 23:01; Status DC Calcium Carbonate/ Glycine (Tums) 500 mg 1X ONCE PO Last administered on 03:55; Start 11/17/16 at 04:00; Stop 11/17/16 at 04:01; Status DC Metoprolol Tartrate 50 mg 50 mg BID PO Last administered on 11/19/16 08:10; Start 11/17/16 at 09:00; Stop 11/20/16 at 09:21; Status DC Bacitracin 53350 unit/Sodium Chloride 250 ml @ 0 mls/hr 1X ONCE IRR Last administered on 11/17/16 11:36; Start 11/17/16 at 09:00; Stop 11/17/16 at 09:01 ; Status DC Cefazolin Sodium/ Dextrose 50 ml @ 100 mls/hr 1X ONCE IV Last administered on 11/17/16 11:37; Start 11/17/16 at 08:45; Stop 11/17/16 at 09:14; Status DC Cefazolin Sodium/ Dextrose 50 ml @ As Directed STK-MED ONCE IV ; Start 11/17/16 at 09:59; Stop 11/17/16 at 10:00; Status DC Propofol 20 ml @ As Directed STK-MED ONCE IV ; Start 11/17/16 at 10:01; Stop at 10:02; Status DC Propofol (Diprivan) 20 ml @ As Directed STK-MED ONCE IV ; Start 11/17/16 at 10: 01; Stop 11/17/16 at 10:02; Status DC Lidocaine HCl 100 mg 100 mg STK-MED ONCE .ROUTE ; Start 11/17/16 at 10:01; Stop 11/17/16 at 10:02; Status DC Propofol (Diprivan) 0 ml @ As Directed STK-MED ONCE IV ; Start 11/17/16 at 10:02 ; Stop 11/17/16 at 10:03; Status DC Lidocaine/ Epinephrine (Xylocaine 2%-Epi 1:100,000) 20 ml STK-MED ONCE .ROUTE ; Start 11/17/16 at 10:14; Stop 11/17/16 at 10:15; Status DC Lidocaine/ Epinephrine 20 ml 20 ml 1X ONCE IJ Last administered on 11/17/16 11:36; Start 11/17/16 at 11:00; Stop 11/17/16 at 11:05; Status DC Cefazolin Sodium/ Dextrose 50 ml @ 100 mls/hr 1X ONCE IV ; Start 11/17/16 at 11:45; Stop 11/17/16 at 12:14; Status DC Cefazolin Sodium/ Dextrose (Ancef 2gm Premix) 50 ml @ 100 mls/hr 1X ONCE IV Last administered on 11/17/16 17:49; Start 11/17/16 at 18:00; Stop 11/17/16 at 18:29; Status DC Amlodipine Besylate 5 mg 5 mg DAILY PO Last administered on 11/18/16 09:00; Start 11/18/16 at 09:00; Stop 11/18/16 at 16:17; Status DC Magnesium Sulfate/ Dextrose (Magnesium Sulfate PREMIX 2GM) 50 ml @ 25 mls/hr PRN DAILY PRN IV for Mag < 1.7 on am labs; Start 11/18/16 at 16:15 Amlodipine Besylate (Norvasc) 10 mg DAILY PO Last administered on 11/19/16 08: 10; Start 11/19/16 at 09:00 Barium Sulfate (Varibar Thin Liquid Apple) 148 gm 1X ONCE PO Last administered on 11/19/16 11:02; Start 11/19/16 at 10:30; Stop 11/19/16 at 10:31; Status DC Nitroglycerin (Nitro-Bid Oint) 1.5 inch Q6HRS TP Last administered on 11/20/16 06:16; Start 11/19/16 at 13:00; Stop 11/20/16 at 10:50; Status DC Iohexol (Omnipaque 300 Mg/ml) 75 ml 1X ONCE IV Last administered on 11/19/16 13:45; Start 11/19/16 at 13:45; Stop 11/19/16 at 13:46; Status DC Info 1 each 1 each PRN DAILY PRN MC SEE COMMENTS; Start 11/19/16 at 14:00; Stop 11/21/16 at 13:59; Status DC Amiodarone HCl/ Dextrose (Cordarone) 518 ml @ 0 mls/hr 1X ONCE IV Last administered on 11/20/16 11:18; Start 11/20/16 at 09:15; Stop 11/20/16 at 09:22; Status DC Metoprolol Tartrate (Lopressor) 5 mg Q6H IVP Last administered on 11/23/16 04: 15; Start 11/20/16 at 10:00 Hydralazine HCl 20 mg 20 mg PRN Q4HRS PRN IVP ELEVATED BP, SEE COMMENTS Last administered on 11/21/16 11:31; Start 11/20/16 at 10:45 Amino Acids/ Electrolytes/ Dextrose (Clinimix E 4.25%-5% Solution) 1,000 ml @ 80 mls/hr [id number] IV Last administered on 11/21/16 17:00; Start 11/20/16 at 11: 00; Stop 11/21/16 at 21:59; Status DC Aspirin (Aspirin) 300 mg DAILY [place] Last administered on 11/21/16 09:40; Start at 11:00 Heparin Sodium/ Sodium Chloride 1,000 unit 1X ONCE IART Last administered on 17:15; Start 11/20/16 at 17:00; Stop 11/20/16 at 17:04; Status DC Lidocaine/Sodium Bicarbonate (Buffered Lidocaine 1%) 20 ml 1X ONCE IJ Last administered on 11/20/16 17:15; Start 11/20/16 at 17:00; Stop 11/20/16 at 17:04; Status DC Info 1 each PRN DAILY PRN MC SEE COMMENTS Last administered on 11/22/16 14:38; Start 11/20/16 at 19:30 Lidocaine/Sodium Bicarbonate 20 ml 20 ml STK-MED ONCE IJ ; Start 11/20/16 at 16: 43; Stop 11/21/16 at 11:25; Status DC Heparin Sodium/ Sodium Chloride 500 ml @ As Directed STK-MED ONCE .ROUTE ; Start 11/20/16 at 16:43; Stop 11/21/16 at 11:25; Status DC Clonidine HCl 1 patch 1 patch Tu TD Last administered on 11/21/16 12:16; Start 11/21/16 at 12:00 Sodium Chloride 75 meq/Potassium Chloride 50 meq/ Potassium Phosphate 13.6 mmol/ Magnesium Sulfate 10 meq/ Calcium Gluconate 10 meq/ Multivitamins 10 ml/Chromium / Copper/Manganese/ Seleni/Zn 1 ml/ Total Parenteral Nutrition/Amino Acids/ Dextrose/ Fat Emulsion Intravenous 1,512 ml @ 63 mls/hr TPN CONT IV Last administered on 11/21/16 21:40; Start 11/21/16 at 22:00; Stop 11/22/16 at 21:59; Status DC Amiodarone HCl/ Dextrose (Cordarone) 518 ml @ 0 mls/hr CONT PRN IV SEE I/O RECORD Last administered on 11/21/16 20:11; Start 11/21/16 at 19:30; Stop at 20:12; Status DC Fentanyl Citrate (Fentanyl 2ml Vial) 50 mcg PRN Q2HR PRN IV PAIN Last administered on 11/22/16 16:44; Start 11/21/16 at 19:45 Hydralazine HCl 20 mg 20 mg PRN Q4HRS PRN IVP ELEVATED BP, SEE COMMENTS; Start 11/22/16 at 12:15; Status UNV Sodium Chloride/ Potassium Chloride/ Potassium Phosphate/ Magnesium Sulfate/ Calcium Gluconate/ Multivitamins/ Chromium/Copper/ Manganese/Seleni/ Zn/Total Parenteral Nutrition/Amino Acids/Dextrose/ Fat Emulsion Intravenous (Sodium Chloride/ Potassium Phosphate/Calc... 1,512 ml @ 63 mls/hr TPN CONT IV Last administered on 11/22/16 20:41; Start 11/22/16 at 22:00; Stop 11/23/16 at 21:59 Barium Sulfate 148 gm 148 gm 1X ONCE PO Last administered on 11/22/16 14:56; Start 11/22/16 at 14:30; Stop 11/22/16 at 14:31; Status DC Amiodarone HCl/ Dextrose (Cordarone) 518 ml @ 0 mls/hr CONT PRN IV SEE I/O RECORD Last administered on 11/22/16 20:40; Start 11/22/16 at 19:15 Active Scripts Active Reported Clopidogrel (Clopidogrel Bisulfate) 75 Mg Tablet 1 Tab PO DAILY Atorvastatin Calcium 40 Mg Tablet 1 Tab PO QHS Lisinopril-Hctz 20-12.5 Mg Tab (Lisinopril/Hydrochlorothiazide) 1 Each Tablet 1 Tab PO DAILY Nifedipine Er (Nifedipine) 60 Mg Tab.er.24 1 Tab PO DAILY Vitals/I & O Vital Sign - Last 24 Hours 11/22/16 11/22/16 11/22/16 11/22/16 11:00 15:00 16:42 16:44 Temp 98.1 98.4 98.1 98.4 Pulse 75 73 Resp 18 18 B/P 185/85 184/74 184/74 Pulse Ox 98 99 O2 Delivery Room Air Room Air Room Air 11/22/16 11/22/16 11/22/16 11/22/16 17:14 19:15 20:00 20:41 Temp 98.0 98.0 Pulse 64 64 Resp 16 B/P 105/74 105/74 Pulse Ox 95 O2 Delivery Room Air Room Air Room Air 11/22/16 11/23/16 11/23/1611/23/17 22:15 02:40 04:15 07:50 Temp 97.8 97.4 97.6 97.8 97.4 97.6 Pulse 78 76 76 79 Resp 16 16 19 B/P 169/75 180/79 180/79 184/105 Pulse Ox 96 96 98 O2 Delivery Room Air Room Air Room Air Intake and Output 11/22/16 11/22/16 11/23/16 14:59 22:59 06:59 Intake Total 0 ml 1852 ml Output Total 850 ml 400 ml Balance -850 ml 1452 ml LAKHWINDER AMAYA MD Nov 23, 2016 09:45
[2016-11-23] MEDS: TPN PER PHARMACY MC PRN (10:10)
[2016-11-23] MEDS: ASPIRIN 300 MG SUPP.RECT PR SCH (11:15)
[2016-11-23 11:23] VITALS: BP 178/81
[2016-11-23 15:00] VITALS: BP 187/72
[2016-11-23 19:38] VITALS: BP 196/96
[2016-11-23] MEDS ORDERED: TOTAL PARENTERAL NUTRITION IV SCH ×11 (22:00)
[2016-11-23] MEDS ORDERED: DEXTROSE 70% IV SCH ×11 (22:00)
[2016-11-23] MEDS ORDERED: AMINO ACIDS IV SCH ×11 (22:00)
[2016-11-23] MEDS ORDERED: [UNRECOGNIZED DRUG - OTHER] IV SCH ×11 (22:00)
[2016-11-23 22:30] VITALS: BP 195/78
[2016-11-23] MEDS: hydrALAZINE 20 MG/ML VIAL. IVP PRN (22:44)
[2016-11-24] VITALS (7 sets, daily range): BP systolic 137–179; BP diastolic 65–84
[2016-11-24] MEDS: METOPROLOL TARTRATE 5 MG/5 ML VIAL. IVP SCH ×4 (03:48→21:58)
--- NOTE | 2016-11-24 08:22 | RAD ---
Deep Doppler renal ultrasound, 11/23/2016: History: Uncontrolled hypertension Duplex evaluation of the renal arteries was performed including grayscale, color-flow and spectral Doppler analysis. The right kidney measures 10.8 cm in length while the left kidney measures 12.2 cm. There is a 5.5 cm cyst arising from the upper pole the left kidney. On the right, there is a high velocity noted in the renal artery at the renal hilar level. The peak systolic velocity at this level is 341 cm/s. The origin of the renal artery from the aorta was not clearly defined. No elevated velocities are identified in the visualized portions of the left main renal artery. IMPRESSION: Doppler findings suggesting significant right renal artery stenosis. CT angiography is suggested for further evaluation.
--- NOTE | 2016-11-24 08:47 | PDOC ---
GENERAL General: vss and afebrile. awake and alert. exam stable. will need ongoing tpn and iv meds till pharyngeal swelling allow normal swallow. otherwise same. Problems: VITAL SIGNS Vital Signs: Vital Signs Date Time Temp Pulse Resp B/P Pulse Ox O2 Delivery O2 Flow Rate FiO2 11/24/16 03:48 76 155/71 11/24/16 02:22 97.9 18 96 Room Air 97.9 I & O I & O Intake and Output 11/24/16 07:00 Intake Total 956 ml Output Total 250 ml Balance 706 ml Intake Oral 0 ml Other 956 ml Output Urine Total 250 ml # Voids 2 ALLERGIES Allergies: Allergies Coded Allergies Type Severity Reaction Last Updated Verified No Known Drug Allergies 11/14/16 No MEDS Medications: Current Medications Medications (Trade) Dose Ordered Sig/Mamta Start Time Stop Time Status Last Admin Dose Admin Acetaminophen (Tylenol) 650 mg PRN Q4HRS PRN 11/16/16 04:53 11/17/16 20:40 650 MG Adenosine (Adenocard) 12 mg 1X ONCE 11/14/16 18:45 11/14/16 18:46 DC Adenosine (Adenoscan) 90 mg STK-MED ONCE 11/16/16 14:19 11/16/16 14:20 DC Adenosine/Sodium Chloride (Adenoscan/Iv Sodium Chloride 0.9% 50ml) 120 ml @ 200 mls/hr 1X ONCE 11/16/16 14:45 11/16/16 15:21 DC 11/16/16 14:45 200 MLS/HR Albuterol Sulfate (Ventolin Neb Soln) 2.5 mg PRN Q6HRS PRN 11/16/16 22:15 11/16/16 22:27 2.5 MG Amino Acids/ Electrolytes/ Dextrose (Clinimix E 4.25%-5% Solution) 1,000 ml @ 80 mls/hr [id number] 11/20/16 11:00 11/21/16 21:59 DC 11/21/16 17:00 80 MLS/HR Amiodarone HCl (Cordarone) 200 mg DAILY 11/15/16 17:45 11/20/16 10:50 DC 11/19/16 08:11 200 MG Amiodarone HCl 900 mg/Dextrose 518 ml @ 0 mls/hr CONT PRN 11/22/16 19:15 11/22/16 20:40 16.7 MLS/HR Amiodarone HCl/ Dextrose (Cordarone) 518 ml @ 0 mls/hr CONT PRN 11/21/16 19:30 11/21/16 20:12 DC 11/21/16 20:11 16.7 MLS/HR Amlodipine Besylate (Norvasc) 10 mg DAILY 11/19/16 09:00 11/19/16 08:10 10 MG Amlodipine Besylate 5 mg 5 mg DAILY 11/18/16 09:00 11/18/16 16:17 DC 11/18/16 09:00 5 MG Aspirin (Aspirin) 300 mg DAILY 11/20/16 11:00 11/23/16 11:15 300 MG Aspirin (Children'S Aspirin) 81 mg DAILYWBKFT 11/16/16 08:00 11/20/16 10:50 DC 11/19/16 08:11 81 MG Aspirin 81 mg 81 mg DAILYWBKFT 11/15/16 09:15 11/16/16 04:53 DC 11/15/16 10:22 81 MG Atropine Sulfate 0.5 mg 0.5 mg STK-MED ONCE 11/16/16 14:32 11/16/16 14:33 DC Bacitracin/Sodium Chloride (Bacitracin/Iv Sodium Chloride 0.9% 250ml) 250 ml @ 0 mls/hr 1X ONCE 11/17/16 09:00 11/17/16 09:01 DC 11/17/16 11:36 250 MLS/HR Barium Sulfate (Varibar Thin Liquid Apple) 148 gm 1X ONCE 11/19/16 10:30 11/19/16 10:31 DC 11/19/16 11:02 148 GM Barium Sulfate 148 gm 148 gm 1X ONCE 11/22/16 14:30 11/22/16 14:31 DC 11/22/16 14:56 148 GM Calcium Carbonate/ Glycine (Tums) 500 mg 1X ONCE 11/17/16 04:00 11/17/16 04:01 DC 11/17/16 03:55 500 MG Cefazolin Sodium/ Dextrose (Ancef 2gm Premix) 50 ml @ 100 mls/hr 1X ONCE 11/17/16 18:00 11/17/16 18:29 DC 11/17/16 17:49 100 MLS/HR Clonidine HCl 1 patch 1 patch Tu 11/21/16 12:00 11/21/16 12:16 1 PATCH Clopidogrel Bisulfate (Plavix) 75 mg DAILYWBKFT 11/15/16 08:00 11/21/16 16:02 DC 11/19/16 08:09 75 MG Epinephrine (S2 Racepinephrine) 0.5 ml 1X ONCE 11/16/16 23:00 11/16/16 23:01 DC 11/16/16 22:33 0.5 ML Fentanyl Citrate (Fentanyl 2ml Vial) 50 mcg PRN Q2HR PRN 11/21/16 19:45 11/22/16 16:44 50 MCG Fentanyl Citrate 25 mcg 25 mcg PRN Q15MIN PRN 11/14/16 13:30 11/16/16 04:55 DC 11/14/16 13:40 25 MCG Heparin Sodium (Porcine) 2,500 unit 1X ONCE 11/16/16 14:15 11/16/16 14:16 DC 11/16/16 15:05 2,500 UNIT Heparin Sodium (Porcine) 4000 unit 4,000 unit 1X ONCE 11/15/16 09:45 11/15/16 09:46 DC 11/15/16 11:21 4,000 UNIT Heparin Sodium/ Dextrose 500 ml @ 0 mls/hr CONT PRN 11/15/16 09:15 11/17/16 08:28 DC 11/15/16 11:18 19.9 MLS/HR Heparin Sodium/ Sodium Chloride 500 ml @ As Directed STK-MED ONCE 11/20/16 16:43 11/21/16 11:25 DC Hydralazine HCl (Apresoline) 10 mg PRN Q4HRS PRN 11/14/16 16:30 11/20/16 10:50 DC 11/20/16 06:21 10 MG Hydralazine HCl 20 mg 20 mg PRN Q4HRS PRN 11/22/16 12:15 UNV Info 1 each PRN DAILY PRN 11/20/16 19:30 11/23/16 10:10 1 EACH Info (Do NOT chart on this entry -- for MONITORING) 1 each PRN DAILY PRN 11/19/16 14:00 11/21/16 13:59 DC Iodixanol (Visipaque 320) 100 ml 1X ONCE 11/16/16 14:15 11/16/16 14:16 DC 11/16/16 14:59 98 ML Iohexol (Omnipaque 300 Mg/ml) 75 ml 1X ONCE 11/19/16 13:45 11/19/16 13:46 DC 11/19/16 13:45 75 ML Lidocaine HCl 20 ml 1X ONCE 11/16/16 14:15 11/16/16 14:16 DC 11/16/16 15:01 2 ML Lidocaine HCl 100 mg 100 mg STK-MED ONCE 11/17/16 10:01 11/17/16 10:02 DC Lidocaine/ Epinephrine (Xylocaine 2%-Epi 1:100,000) 20 ml STK-MED ONCE 11/17/16 10:14 11/17/16 10:15 DC Lidocaine/ Epinephrine 20 ml 20 ml 1X ONCE 11/17/16 11:00 11/17/16 11:05 DC 11/17/16 11:36 30 ML Lidocaine/Sodium Bicarbonate (Buffered Lidocaine 1%) 20 ml 1X ONCE 11/20/16 17:00 11/20/16 17:04 DC 11/20/16 17:15 20 ML Lidocaine/Sodium Bicarbonate 20 ml 20 ml STK-MED ONCE 11/20/16 16:43 11/21/16 11:25 DC Magnesium Sulfate/ Dextrose (Magnesium Sulfate PREMIX 2GM) 50 ml @ 25 mls/hr PRN DAILY PRN 11/18/16 16:15 Metoprolol Tartrate (Lopressor) 25 mg 1X ONCE 11/16/16 16:00 11/16/16 16:01 DC 11/16/16 16:23 25 MG Metoprolol Tartrate 5 mg 5 mg Q6H 11/20/16 10:00 11/24/16 03:48 5 MG Metoprolol Tartrate 50 mg 50 mg BID 11/17/16 09:00 11/20/16 09:21 DC 11/19/16 08:10 50 MG Midazolam HCl (Versed) 2 mg 1X ONCE 11/16/16 14:15 11/16/16 14:16 DC 11/16/16 15:03 3 MG Nitroglycerin (Nitro-Bid Oint) 1.5 inch Q6HRS 11/19/16 13:00 11/20/16 10:50 DC 11/20/16 06:16 1.5 INCH Nitroglycerin (Nitroglycerin) 200 mcg 1X ONCE 11/16/16 14:15 11/16/16 14:16 DC 11/16/16 15:04 200 MCG Ondansetron HCl (Zofran) 4 mg PRN Q8HRS PRN 11/14/16 15:15 11/15/16 15:14 DC Propofol (Diprivan) 0 ml @ As Directed STK-MED ONCE 11/17/16 10:02 11/17/16 10:03 DC Sodium Acetate/ Potassium Chloride/ Potassium Acetate/ Potassium Phosphate/ Magnesium Sulfate/ Calcium Gluconate/ Multivitamins/ Chromium/Copper/ Manganese/Seleni/ Zn/Total Parenteral Nutrition/Amino Acids/Dextrose/ Fat Emulsion Intravenous (Potassium Phosphate/Calc... 1,512 ml @ 63 mls/hr TPN CONT 11/23/16 22:00 11/24/16 21:59 11/23/16 22:31 63 MLS/HR Sodium Chloride (Iv Sodium Chloride 0.9% 500ml Bag) 500 ml @ 500 mls/hr 1X ONCE 11/14/16 14:00 11/14/16 14:59 DC 11/14/16 16:02 500 MLS/HR Sodium Chloride (Iv Sodium Chloride 0.9% 1000ml Bag) 1,000 ml @ 75 mls/hr [id number] 11/15/16 11:15 11/20/16 10:50 DC 11/20/16 06:27 75 MLS/HR Sodium Chloride 75 meq/Potassium Chloride 50 meq/ Potassium Phosphate 13.6 mmol/Magnesium Sulfate 10 meq/ Calcium Gluconate 10 meq/ Multivitamins 10 ml/Chromium/ Copper/Manganese/ Seleni/Zn 1 ml/ Total Parenteral Nutrition/Amino Acids/Dextrose/ Fat Emulsion Intravenous 1,512 ml @ 63 mls/hr TPN CONT 11/21/16 22:00 11/22/16 21:59 DC 11/21/16 21:40 63 MLS/HR Sodium Chloride/ Potassium Chloride/ Potassium Phosphate/ Magnesium Sulfate/ Calcium Gluconate/ Multivitamins/ Chromium/Copper/ Manganese/Seleni/ Zn/Total Parenteral Nutrition/Amino Acids/Dextrose/ Fat Emulsion Intravenous (Sodium Chloride/ Potassium Phosphate/Calc... 1,512 ml @ 63 mls/hr TPN CONT 11/22/16 22:00 11/23/16 21:59 DC 11/22/16 20:41 63 MLS/HR Throat Lozenges (Chloraseptic) 1 spray PRN Q2HR PRN 11/16/16 22:15 11/17/16 00:04 1 SPRAY Verapamil HCl (Verapamil) 2.5 mg 1X ONCE 11/16/16 14:15 11/16/16 14:16 DC 11/16/16 15:04 2.5 MG LAKHWINDER AMAYA MD Nov 24, 2016 08:46
[2016-11-24] MEDS: AMLODIPINE BESYLATE 10 MG TABLET. PO SCH (09:00)
[2016-11-24] MEDS: ASPIRIN 300 MG SUPP.RECT PR SCH (09:15)
[2016-11-24 12:21] LABS: UR PROTEIN RD 217.4 mg/dL (Not Estab.)
--- NOTE | 2016-11-24 12:29 | PDOC ---
SUBJECTIVE ROS CKD III/ ? WARNER Doign well overall, did not pass Swallow CVS: no Orthopnea, no CP RESP: no SOB, no COLÓN GI: no Nausea, no Vomiting : no Dysuria, no Urgency OBJECTIVE Vital Signs Vital Signs Date Time Temp Pulse Resp B/P Pulse Ox O2 Delivery O2 Flow Rate FiO2 11/24/16 10:59 97.6 63 17 163/74 94 Room Air 97.6 I & 0 Intake and Output 11/24/16 07:00 Intake Total 956 ml Output Total 250 ml Balance 706 ml Intake Oral 0 ml Other 956 ml Output Urine Total 250 ml # Voids 2 PHYSICAL EXAM Physical Exam GEN: Awake, Oriented x 3, In no distress EYES: Vision Unchanged, Conjunctiva Normal; nya-orbital ecchymosis improved EN: No EN Drainage, Mucous Membranes moist NECK: no JVD, no JVP, Supple, no Thyromegaly CVS: S1S2, + Murmur, No Gallop, No Rub,no Edema RESP: no Rales, no Rhonchi,no Acc. Muscle Use GI: BS + ve, NO Bruit, Non Tender, Non Distended : no CVA tenderness, no Suprapubic Tenderness DIAGNOSIS/ASSESSMENT Assessment & Plan ARF/ ATN: I suspect this has resolved off of CAITLYN-i and HCTZ, cannot r/o a renovascular component to the same. RAD with ^ Velocities on the Rt. Will get Split function + CAITLYN-i ? CKD III - Creat was ^ when he came in too - ? Due to HCTZ + CAITLYN-i (currently off) ; ? Asso with PHAM HTN: remains uncontrolled on IV meds but suspectedly due to NPO status. See orders for changes. ct Catapress patch until able to take PO. added IV Hydralazine for now. ? Renovascular - await Nuc Med renal scan Proteinuria - re- Quantitate with ratio; cannot believe there was no creat in Urine. non obstructing ? kidney stone: currently asymptomatic, informed pt re s/s to look for Marginal Anemia - watch trend COMMENT/RELEVANT DATA Meds Current Medications Medications (Trade) Dose Ordered Sig/Mamta Start Time Stop Time Status Last Admin Dose Admin Acetaminophen (Tylenol) 650 mg PRN Q4HRS PRN 11/16/16 04:53 11/17/16 20:40 650 MG Adenosine (Adenocard) 12 mg 1X ONCE 11/14/16 18:45 11/14/16 18:46 DC Adenosine (Adenoscan) 90 mg STK-MED ONCE 11/16/16 14:19 11/16/16 14:20 DC Adenosine/Sodium Chloride (Adenoscan/Iv Sodium Chloride 0.9% 50ml) 120 ml @ 200 mls/hr 1X ONCE 11/16/16 14:45 11/16/16 15:21 DC 11/16/16 14:45 200 MLS/HR Albuterol Sulfate (Ventolin Neb Soln) 2.5 mg PRN Q6HRS PRN 11/16/16 22:15 11/16/16 22:27 2.5 MG Amino Acids/ Electrolytes/ Dextrose (Clinimix E 4.25%-5% Solution) 1,000 ml @ 80 mls/hr [id number] 11/20/16 11:00 11/21/16 21:59 DC 11/21/16 17:00 80 MLS/HR Amiodarone HCl (Cordarone) 200 mg DAILY 11/15/16 17:45 11/20/16 10:50 DC 11/19/16 08:11 200 MG Amiodarone HCl 900 mg/Dextrose 518 ml @ 0 mls/hr CONT PRN 11/22/16 19:15 11/22/16 20:40 16.7 MLS/HR Amiodarone HCl/ Dextrose (Cordarone) 518 ml @ 0 mls/hr CONT PRN 11/21/16 19:30 11/21/16 20:12 DC 11/21/16 20:11 16.7 MLS/HR Amlodipine Besylate (Norvasc) 10 mg DAILY 11/19/16 09:00 11/19/16 08:10 10 MG Amlodipine Besylate 5 mg 5 mg DAILY 11/18/16 09:00 11/18/16 16:17 DC 11/18/16 09:00 5 MG Aspirin (Aspirin) 300 mg DAILY 11/20/16 11:00 11/24/16 09:15 300 MG Aspirin (Children'S Aspirin) 81 mg [id number] 11/16/16 08:00 11/20/16 10:50 DC 11/19/16 08:11 81 MG Aspirin 81 mg 81 mg DAILYWBKFT 11/15/16 09:15 11/16/16 04:53 DC 11/15/16 10:22 81 MG Atropine Sulfate 0.5 mg 0.5 mg STK-MED ONCE 11/16/16 14:32 11/16/16 14:33 DC Bacitracin/Sodium Chloride (Bacitracin/Iv Sodium Chloride 0.9% 250ml) 250 ml @ 0 mls/hr 1X ONCE 11/17/16 09:00 11/17/16 09:01 DC 11/17/16 11:36 250 MLS/HR Barium Sulfate (Varibar Thin Liquid Apple) 148 gm 1X ONCE 11/19/16 10:30 11/19/16 10:31 DC 11/19/16 11:02 148 GM Barium Sulfate 148 gm 148 gm 1X ONCE 11/22/16 14:30 11/22/16 14:31 DC 11/22/16 14:56 148 GM Calcium Carbonate/ Glycine (Tums) 500 mg 1X ONCE 11/17/16 04:00 11/17/16 04:01 DC 11/17/16 03:55 500 MG Cefazolin Sodium/ Dextrose (Ancef 2gm Premix) 50 ml @ 100 mls/hr 1X ONCE 11/17/16 18:00 11/17/16 18:29 DC 11/17/16 17:49 100 MLS/HR Clonidine HCl 1 patch 1 patch Tu 11/21/16 12:00 11/21/16 12:16 1 PATCH Clopidogrel Bisulfate (Plavix) 75 mg DAILYWBKFT 11/15/16 08:00 11/21/16 16:02 DC 11/19/16 08:09 75 MG Epinephrine (S2 Racepinephrine) 0.5 ml 1X ONCE 11/16/16 23:00 11/16/16 23:01 DC 11/16/16 22:33 0.5 ML Fentanyl Citrate (Fentanyl 2ml Vial) 50 mcg PRN Q2HR PRN 11/21/16 19:45 11/22/16 16:44 50 MCG Fentanyl Citrate 25 mcg 25 mcg PRN Q15MIN PRN 11/14/16 13:30 11/16/16 04:55 DC 11/14/16 13:40 25 MCG Heparin Sodium (Porcine) 2,500 unit 1X ONCE 11/16/16 14:15 11/16/16 14:16 DC 11/16/16 15:05 2,500 UNIT Heparin Sodium (Porcine) 4000 unit 4,000 unit 1X ONCE 11/15/16 09:45 11/15/16 09:46 DC 11/15/16 11:21 4,000 UNIT Heparin Sodium/ Dextrose 500 ml @ 0 mls/hr CONT PRN 11/15/16 09:15 11/17/16 08:28 DC 11/15/16 11:18 19.9 MLS/HR Heparin Sodium/ Sodium Chloride 500 ml @ As Directed STK-MED ONCE 11/20/16 16:43 11/21/16 11:25 DC Hydralazine HCl (Apresoline) 10 mg PRN Q4HRS PRN 11/14/16 16:30 11/20/16 10:50 DC 11/20/16 06:21 10 MG Hydralazine HCl 20 mg 20 mg PRN Q4HRS PRN 11/22/16 12:15 UNV Info 1 each PRN DAILY PRN 11/20/16 19:30 11/23/16 10:10 1 EACH Info (Do NOT chart on this entry -- for MONITORING) 1 each PRN DAILY PRN 11/19/16 14:00 11/21/16 13:59 DC Iodixanol (Visipaque 320) 100 ml 1X ONCE 11/16/16 14:15 11/16/16 14:16 DC 11/16/16 14:59 98 ML Iohexol (Omnipaque 300 Mg/ml) 75 ml 1X ONCE 11/19/16 13:45 11/19/16 13:46 DC 11/19/16 13:45 75 ML Lidocaine HCl 20 ml 1X ONCE 11/16/16 14:15 11/16/16 14:16 DC 11/16/16 15:01 2 ML Lidocaine HCl 100 mg 100 mg STK-MED ONCE 11/17/16 10:01 11/17/16 10:02 DC Lidocaine/ Epinephrine (Xylocaine 2%-Epi 1:100,000) 20 ml STK-MED ONCE 11/17/16 10:14 11/17/16 10:15 DC Lidocaine/ Epinephrine 20 ml 20 ml 1X ONCE 11/17/16 11:00 11/17/16 11:05 DC 11/17/16 11:36 30 ML Lidocaine/Sodium Bicarbonate (Buffered Lidocaine 1%) 20 ml 1X ONCE 11/20/16 17:00 11/20/16 17:04 DC 11/20/16 17:15 20 ML Lidocaine/Sodium Bicarbonate 20 ml 20 ml STK-MED ONCE 11/20/16 16:43 11/21/16 11:25 DC Magnesium Sulfate/ Dextrose (Magnesium Sulfate PREMIX 2GM) 50 ml @ 25 mls/hr PRN DAILY PRN 11/18/16 16:15 Metoprolol Tartrate (Lopressor) 25 mg 1X ONCE 11/16/16 16:00 11/16/16 16:01 DC 11/16/16 16:23 25 MG Metoprolol Tartrate 5 mg 5 mg Q6H 11/20/16 10:00 11/24/16 09:15 5 MG Metoprolol Tartrate 50 mg 50 mg BID 11/17/16 09:00 11/20/16 09:21 DC 11/19/16 08:10 50 MG Midazolam HCl (Versed) 2 mg 1X ONCE 11/16/16 14:15 11/16/16 14:16 DC 11/16/16 15:03 3 MG Nitroglycerin (Nitro-Bid Oint) 1.5 inch Q6HRS 11/19/16 13:00 11/20/16 10:50 DC 11/20/16 06:16 1.5 INCH Nitroglycerin (Nitroglycerin) 200 mcg 1X ONCE 11/16/16 14:15 11/16/16 14:16 DC 11/16/16 15:04 200 MCG Ondansetron HCl (Zofran) 4 mg PRN Q8HRS PRN 11/14/16 15:15 11/15/16 15:14 DC Propofol (Diprivan) 0 ml @ As Directed STK-MED ONCE 11/17/16 10:02 11/17/16 10:03 DC Sodium Acetate/ Potassium Chloride/ Potassium Acetate/ Potassium Phosphate/ Magnesium Sulfate/ Calcium Gluconate/ Multivitamins/ Chromium/Copper/ Manganese/Seleni/ Zn/Total Parenteral Nutrition/Amino Acids/Dextrose/ Fat Emulsion Intravenous (Potassium Phosphate/Calc... 1,512 ml @ 63 mls/hr TPN CONT 11/23/16 22:00 11/24/16 21:59 11/23/16 22:31 63 MLS/HR Sodium Chloride (Iv Sodium Chloride 0.9% 500ml Bag) 500 ml @ 500 mls/hr 1X ONCE 11/14/16 14:00 11/14/16 14:59 DC 11/14/16 16:02 500 MLS/HR Sodium Chloride (Iv Sodium Chloride 0.9% 1000ml Bag) 1,000 ml @ 75 mls/hr [id number] 11/15/16 11:15 11/20/16 10:50 DC 11/20/16 06:27 75 MLS/HR Sodium Chloride 75 meq/Potassium Chloride 50 meq/ Potassium Phosphate 13.6 mmol/Magnesium Sulfate 10 meq/ Calcium Gluconate 10 meq/ Multivitamins 10 ml/Chromium/ Copper/Manganese/ Seleni/Zn 1 ml/ Total Parenteral Nutrition/Amino Acids/Dextrose/ Fat Emulsion Intravenous 1,512 ml @ 63 mls/hr TPN CONT 11/21/16 22:00 11/22/16 21:59 DC 11/21/16 21:40 63 MLS/HR Sodium Chloride/ Potassium Chloride/ Potassium Phosphate/ Magnesium Sulfate/ Calcium Gluconate/ Multivitamins/ Chromium/Copper/ Manganese/Seleni/ Zn/Total Parenteral Nutrition/Amino Acids/Dextrose/ Fat Emulsion Intravenous (Sodium Chloride/ Potassium Phosphate/Calc... 1,512 ml @ 63 mls/hr TPN CONT 11/22/16 22:00 11/23/16 21:59 DC 11/22/16 20:41 63 MLS/HR Throat Lozenges (Chloraseptic) 1 spray PRN Q2HR PRN 11/16/16 22:15 11/17/16 00:04 1 SPRAY Verapamil HCl (Verapamil) 2.5 mg 1X ONCE 11/16/16 14:15 11/16/16 14:16 DC 11/16/16 15:04 2.5 MG GORDO HARRISON MD Nov 24, 2016 12:29
--- NOTE | 2016-11-24 13:07 | PDOC ---
CARDIO Progress Notes Date and Time Date of Service 11/24/2016 Time of Evaluation 1302 Subjective Subjective: Other (sleeping ) Vitals Vitals Vital Signs Date Time Temp Pulse Resp B/P Pulse Ox O2 Delivery O2 Flow Rate FiO2 11/24/16 10:59 97.6 63 17 163/74 94 Room Air 97.6 Weight Weight [ ] Input and Output Intake and Output Intake and Output 11/24/16 07:00 Intake Total 956 ml Output Total 250 ml Balance 706 ml Intake Oral 0 ml Other 956 ml Output Urine Total 250 ml # Voids 2 Laboratory Labs Laboratory Tests Test 11/23/16 18:20 Urine Protein 217.4mg/dL (Not Estab.) Urine Creatinine 82.1mg/dL (Not Estab.) Urine Protein/Creatinine Ratio 2648mg/g creat (0-200) Microbiology Micro Microbiology 11/19/16 Urine Culture - Final, Complete 11/19/16 Urine Culture Result 1 (DARNELL) - Final, Complete Physical Exam HEENT: Neck Supple W Full Motion Chest: Other (left pectoral incision c/d/i - no evidence of erythema, edema, steri-strips intact; truncal ecchymosis) Heart: murmurs (2/6 systolic murmur to LLS border), other (tele: V paced) Abdomen: Soft N/T Extremities: No Edema Neurology: alert, oriented, follow commands Diagnostic Tests Chest X-ray: Other (no pneumothorax) Assessment Assessment 1. Sustained VT; symptomatic s/p dual chamber Biotronik ICD for prevention of SCD anti-arrhythmic therapy converted to IV as currently NPO after failed video swallow remains on amiodarone gtt; resume amiodarone 400 mg daily when able to swallow ICD site healing well - will not need wound check in office 2. CAD PCI/ORQUIDEA 11/2015 to OM1 and LCx cardiac cath demonstrating patent stents hold clopidogrel as NPO and convert ASA to suppository; resume clopidogrel 75 mg daily and ASA 81 mg daily when able to swallow 3. chronic diastolic CHF, preserved LVEF of 55-60% compensated with medical management BB now IV while NPO - resume metoprolol tartrate 50 mg BID when taking oral 4. HTN control with meds 5. hyperlipidemia LDLs controlled with statin therapy 6. dysphagia failed video swallow remains NPO -- ? PEG soon RICHARD CON[employer] REPRESENTATIVE Nov 24, 2016 13:07
[2016-11-24 13:08] LABS: ALBUMIN 2.6 g/dL (3.4-5.0); CALCIUM 8.4 mg/dL (8.5-10.1); CREATININE 1.8 mg/dL (0.7-1.3); GFR 35.9; PHOSPHORUS 4.1 mg/dL (2.6-4.7); POTASSIUM 4.4 mmol/L (3.5-5.1)
[2016-11-24] MEDS: TPN PER PHARMACY MC PRN (13:27)
[2016-11-24] MEDS: hydrALAZINE 20 MG/ML VIAL. IVP PRN (16:38)
[2016-11-24] MEDS ORDERED: TOTAL PARENTERAL NUTRITION IV SCH ×11 (22:00)
[2016-11-24] MEDS ORDERED: AMINO ACIDS IV SCH ×11 (22:00)
[2016-11-24] MEDS ORDERED: [UNRECOGNIZED DRUG - OTHER] IV SCH ×11 (22:00)
[2016-11-24] MEDS ORDERED: DEXTROSE 70% IV SCH ×11 (22:00)
[2016-11-25 01:26] VITALS: BP 171/84
[2016-11-25] MEDS: hydrALAZINE 20 MG/ML VIAL. IVP PRN (01:27)
[2016-11-25 03:30] VITALS: BP 164/76
[2016-11-25] MEDS: METOPROLOL TARTRATE 5 MG/5 ML VIAL. IVP SCH ×2 (03:57→11:24)
[2016-11-25] MEDS: AMIODARONE 900 MG in IV DEXTROSE 5% 500 ML IV PRN (05:02)
[2016-11-25 05:56] LABS: ALBUMIN 2.5 g/dL (3.4-5.0); CALCIUM 8.8 mg/dL (8.5-10.1); CREATININE 1.7 mg/dL (0.7-1.3); GFR 38.3; PHOSPHORUS 4.1 mg/dL (2.6-4.7); POTASSIUM 4.2 mmol/L (3.5-5.1)
[2016-11-25 07:00] VITALS: BP 179/75
[2016-11-25] MEDS: AMLODIPINE BESYLATE 10 MG TABLET. PO SCH (07:56)
[2016-11-25] MEDS ORDERED: ENALAPRILAT 2.5 MG/2 ML VIAL. IV ONE (09:00)
[2016-11-25] MEDS: ASPIRIN 300 MG SUPP.RECT PR SCH (09:25)
--- NOTE | 2016-11-25 09:56 | PDOC ---
GENERAL General: vss and afebrile. blood pressures remain elevated and renal scan ongoing for stenosis. rest exam stable. [facility] verification. will transfer when renal feels ok. Problems: VITAL SIGNS Vital Signs: Vital Signs Date Time Temp Pulse Resp B/P Pulse Ox O2 Delivery O2 Flow Rate FiO2 11/25/16 09:19 69 184/76 11/25/16 08:00 Room Air 11/25/16 07:00 97.4 17 97 97.4 I & O I & O Intake and Output 11/25/16 07:00 Intake Total 956 ml Output Total 550 ml Balance 406 ml Intake Oral 0 ml Other 956 ml Output Urine Total 550 ml # Bowel Movements 2 ALLERGIES Allergies: Allergies Coded Allergies Type Severity Reaction Last Updated Verified No Known Drug Allergies 11/14/16 No MEDS Medications: Current Medications Medications (Trade) Dose Ordered Sig/Mamta Start Time Stop Time Status Last Admin Dose Admin Acetaminophen (Tylenol) 650 mg PRN Q4HRS PRN 11/16/16 04:53 11/17/16 20:40 650 MG Adenosine (Adenocard) 12 mg 1X ONCE 11/14/16 18:45 11/14/16 18:46 DC Adenosine (Adenoscan) 90 mg STK-MED ONCE 11/16/16 14:19 11/16/16 14:20 DC Adenosine/Sodium Chloride (Adenoscan/Iv Sodium Chloride 0.9% 50ml) 120 ml @ 200 mls/hr 1X ONCE 11/16/16 14:45 11/16/16 15:21 DC 11/16/16 14:45 200 MLS/HR Albuterol Sulfate (Ventolin Neb Soln) 2.5 mg PRN Q6HRS PRN 11/16/16 22:15 11/16/16 22:27 2.5 MG Amino Acids/ Electrolytes/ Dextrose (Clinimix E 4.25%-5% Solution) 1,000 ml @ 80 mls/hr [id number] 11/20/16 11:00 11/21/16 21:59 DC 11/21/16 17:00 80 MLS/HR Amiodarone HCl (Cordarone) 200 mg DAILY 11/15/16 17:45 11/20/16 10:50 DC 11/19/16 08:11 200 MG Amiodarone HCl 900 mg/Dextrose 518 ml @ 0 mls/hr CONT PRN 11/22/16 19:15 11/25/16 05:02 16.7 MLS/HR Amiodarone HCl/ Dextrose (Cordarone) 518 ml @ 0 mls/hr CONT PRN 11/21/16 19:30 11/21/16 20:12 DC 11/21/16 20:11 16.7 MLS/HR Amlodipine Besylate (Norvasc) 10 mg DAILY 11/19/16 09:00 11/19/16 08:10 10 MG Amlodipine Besylate 5 mg 5 mg DAILY 11/18/16 09:00 11/18/16 16:17 DC 11/18/16 09:00 5 MG Aspirin (Aspirin) 300 mg DAILY 11/20/16 11:00 11/25/16 09:25 300 MG Aspirin (Children'S Aspirin) 81 mg DAILYWBKFT 11/16/16 08:00 11/20/16 10:50 DC 11/19/16 08:11 81 MG Aspirin 81 mg 81 mg DAILYWBKFT 11/15/16 09:15 11/16/16 04:53 DC 11/15/16 10:22 81 MG Atropine Sulfate 0.5 mg 0.5 mg STK-MED ONCE 11/16/16 14:32 11/16/16 14:33 DC Bacitracin/Sodium Chloride (Bacitracin/Iv Sodium Chloride 0.9% 250ml) 250 ml @ 0 mls/hr 1X ONCE 11/17/16 09:00 11/17/16 09:01 DC 11/17/16 11:36 250 MLS/HR Barium Sulfate (Varibar Thin Liquid Apple) 148 gm 1X ONCE 11/19/16 10:30 11/19/16 10:31 DC 11/19/16 11:02 148 GM Barium Sulfate 148 gm 148 gm 1X ONCE 11/22/16 14:30 11/22/16 14:31 DC 11/22/16 14:56 148 GM Calcium Carbonate/ Glycine (Tums) 500 mg 1X ONCE 11/17/16 04:00 11/17/16 04:01 DC 11/17/16 03:55 500 MG Cefazolin Sodium/ Dextrose (Ancef 2gm Premix) 50 ml @ 100 mls/hr 1X ONCE 11/17/16 18:00 11/17/16 18:29 DC 11/17/16 17:49 100 MLS/HR Clonidine HCl 1 patch 1 patch Tu 11/21/16 12:00 11/21/16 12:16 1 PATCH Clopidogrel Bisulfate (Plavix) 75 mg DAILYWBKFT 11/15/16 08:00 11/21/16 16:02 DC 11/19/16 08:09 75 MG Enalaprilat (Vasotec) 2.5 mg 1X ONCE 11/25/16 09:00 11/25/16 09:03 DC 11/25/16 09:19 2.5 MG Epinephrine (S2 Racepinephrine) 0.5 ml 1X ONCE 11/16/16 23:00 11/16/16 23:01 DC 11/16/16 22:33 0.5 ML Fentanyl Citrate (Fentanyl 2ml Vial) 50 mcg PRN Q2HR PRN 11/21/16 19:45 11/22/16 16:44 50 MCG Fentanyl Citrate 25 mcg 25 mcg PRN Q15MIN PRN 11/14/16 13:30 11/16/16 04:55 DC 11/14/16 13:40 25 MCG Heparin Sodium (Porcine) 2,500 unit 1X ONCE 11/16/16 14:15 11/16/16 14:16 DC 11/16/16 15:05 2,500 UNIT Heparin Sodium (Porcine) 4000 unit 4,000 unit 1X ONCE 11/15/16 09:45 11/15/16 09:46 DC 11/15/16 11:21 4,000 UNIT Heparin Sodium/ Dextrose 500 ml @ 0 mls/hr CONT PRN 11/15/16 09:15 11/17/16 08:28 DC 11/15/16 11:18 19.9 MLS/HR Heparin Sodium/ Sodium Chloride 500 ml @ As Directed STK-MED ONCE 11/20/16 16:43 11/21/16 11:25 DC Hydralazine HCl (Apresoline) 10 mg PRN Q4HRS PRN 11/14/16 16:30 11/20/16 10:50 DC 11/20/16 06:21 10 MG Hydralazine HCl 20 mg 20 mg PRN Q4HRS PRN 11/22/16 12:15 UNV Info 1 each PRN DAILY PRN 11/20/16 19:30 11/24/16 13:27 1 EACH Info (Do NOT chart on this entry -- for MONITORING) 1 each PRN DAILY PRN 11/19/16 14:00 11/21/16 13:59 DC Iodixanol (Visipaque 320) 100 ml 1X ONCE 11/16/16 14:15 11/16/16 14:16 DC 11/16/16 14:59 98 ML Iohexol (Omnipaque 300 Mg/ml) 75 ml 1X ONCE 11/19/16 13:45 11/19/16 13:46 DC 11/19/16 13:45 75 ML Lidocaine HCl 20 ml 1X ONCE 11/16/16 14:15 11/16/16 14:16 DC 11/16/16 15:01 2 ML Lidocaine HCl 100 mg 100 mg STK-MED ONCE 11/17/16 10:01 11/17/16 10:02 DC Lidocaine/ Epinephrine (Xylocaine 2%-Epi 1:100,000) 20 ml STK-MED ONCE 11/17/16 10:14 11/17/16 10:15 DC Lidocaine/ Epinephrine 20 ml 20 ml 1X ONCE 11/17/16 11:00 11/17/16 11:05 DC 11/17/16 11:36 30 ML Lidocaine/Sodium Bicarbonate (Buffered Lidocaine 1%) 20 ml 1X ONCE 11/20/16 17:00 11/20/16 17:04 DC 11/20/16 17:15 20 ML Lidocaine/Sodium Bicarbonate 20 ml 20 ml STK-MED ONCE 11/20/16 16:43 11/21/16 11:25 DC Magnesium Sulfate/ Dextrose (Magnesium Sulfate PREMIX 2GM) 50 ml @ 25 mls/hr PRN DAILY PRN 11/18/16 16:15 Metoprolol Tartrate (Lopressor) 25 mg 1X ONCE 11/16/16 16:00 11/16/16 16:01 DC 11/16/16 16:23 25 MG Metoprolol Tartrate 5 mg 5 mg Q6H 11/20/16 10:00 11/25/16 03:57 5 MG Metoprolol Tartrate 50 mg 50 mg BID 11/17/16 09:00 11/20/16 09:21 DC 11/19/16 08:10 50 MG Midazolam HCl (Versed) 2 mg 1X ONCE 11/16/16 14:15 11/16/16 14:16 DC 11/16/16 15:03 3 MG Nitroglycerin (Nitro-Bid Oint) 1.5 inch Q6HRS 11/19/16 13:00 11/20/16 10:50 DC 11/20/16 06:16 1.5 INCH Nitroglycerin (Nitroglycerin) 200 mcg 1X ONCE 11/16/16 14:15 11/16/16 14:16 DC 11/16/16 15:04 200 MCG Ondansetron HCl (Zofran) 4 mg PRN Q8HRS PRN 11/14/16 15:15 11/15/16 15:14 DC Propofol (Diprivan) 0 ml @ As Directed STK-MED ONCE 11/17/16 10:02 11/17/16 10:03 DC Sodium Acetate 60 meq/Potassium Chloride 25 meq/ Potassium Acetate 25 meq/Potassium Phosphate 13.6 mmol/Magnesium Sulfate 10 meq/ Calcium Gluconate 10 meq/ Multivitamins 10 ml/Chromium/ Copper/Manganese/ Seleni/Zn 1 ml/ Total Parenteral Nutrition/Amino Acids/Dextrose/ Fat Emulsion Intravenous 1,512 ml @ 63 mls/hr TPN CONT 11/23/16 22:00 11/24/16 21:59 DC 11/23/16 22:31 63 MLS/HR Sodium Acetate/ Potassium Chloride/ Potassium Acetate/ Potassium Phosphate/ Magnesium Sulfate/ Calcium Gluconate/ Multivitamins/ Chromium/Copper/ Manganese/Seleni/ Zn/Total Parenteral Nutrition/Amino Acids/Dextrose/ Fat Emulsion Intravenous (Potassium Phosphate/Calc... 1,512 ml @ 63 mls/hr TPN CONT 11/24/16 22:00 11/25/16 21:59 11/25/16 01:11 63 MLS/HR Sodium Chloride (Iv Sodium Chloride 0.9% 500ml Bag) 500 ml @ 500 mls/hr 1X ONCE 11/14/16 14:00 11/14/16 14:59 DC 11/14/16 16:02 500 MLS/HR Sodium Chloride (Iv Sodium Chloride 0.9% 1000ml Bag) 1,000 ml @ 75 mls/hr [id number] 11/15/16 11:15 11/20/16 10:50 DC 11/20/16 06:27 75 MLS/HR Sodium Chloride 75 meq/Potassium Chloride 50 meq/ Potassium Phosphate 13.6 mmol/Magnesium Sulfate 10 meq/ Calcium Gluconate 10 meq/ Multivitamins 10 ml/Chromium/ Copper/Manganese/ Seleni/Zn 1 ml/ Total Parenteral Nutrition/Amino Acids/Dextrose/ Fat Emulsion Intravenous 1,512 ml @ 63 mls/hr TPN CONT 11/21/16 22:00 11/22/16 21:59 DC 11/21/16 21:40 63 MLS/HR Sodium Chloride/ Potassium Chloride/ Potassium Phosphate/ Magnesium Sulfate/ Calcium Gluconate/ Multivitamins/ Chromium/Copper/ Manganese/Seleni/ Zn/Total Parenteral Nutrition/Amino Acids/Dextrose/ Fat Emulsion Intravenous (Sodium Chloride/ Potassium Phosphate/Calc... 1,512 ml @ 63 mls/hr TPN CONT 11/22/16 22:00 11/23/16 21:59 DC 11/22/16 20:41 63 MLS/HR Throat Lozenges (Chloraseptic) 1 spray PRN Q2HR PRN 11/16/16 22:15 11/17/16 00:04 1 SPRAY Verapamil HCl (Verapamil) 2.5 mg 1X ONCE 11/16/16 14:15 11/16/16 14:16 DC 11/16/16 15:04 2.5 MG LAB Lab: Laboratory Tests Test 11/24/16 12:00 11/25/16 04:55 Sodium Level 141mmol/L (136-145) 142mmol/L (136-145) Potassium Level 4.4mmol/L (3.5-5.1) 4.2mmol/L (3.5-5.1) Chloride Level 107mmol/L (98-107) 109mmol/L (98-107) Carbon Dioxide Level 24mmol/L (21-32) 24mmol/L (21-32) Anion Gap 10 (6-14) 9 (6-14) Blood Urea Nitrogen 42mg/dL (8-26) 40mg/dL (8-26) Creatinine 1.8mg/dL (0.7-1.3) 1.7mg/dL (0.7-1.3) Estimated GFR (Cockcroft-Gault) 35.9 38.3 Glucose Level 164mg/dL (70-99) 105mg/dL (70-99) Calcium Level 8.4mg/dL (8.5-10.1) 8.8mg/dL (8.5-10.1) Phosphorus Level 4.1mg/dL (2.6-4.7) 4.1mg/dL (2.6-4.7) Albumin 2.6g/dL (3.4-5.0) 2.5g/dL (3.4-5.0) LAKHWINDER AMAYA MD Nov 25, 2016 09:56
[2016-11-25 11:24] VITALS: BP 177/82
--- NOTE | 2016-11-26 12:49 | RAD ---
Renal nuclear medicine study pre and post CAITLYN inhibitor Indications: Uncontrolled hypertension. Duplex sonogram demonstrated possible right renal arterial stenosis. Right kidney measured 10.8 cm in length and left kidney measured 12.2 cm in length. 5.5 cm cyst was seen arising from the upper pole of the left kidney. Technique: Study was performed on 2 separate days. The pre-CAITLYN inhibitor baseline study was performed on November 24, 2016 and the post CAITLYN inhibitor study was performed on November 25, 2016. Baseline study: After IV infusion of 11 mCi of technetium 99m MAG3, posterior planar images of both kidneys were performed in a dynamic and static fashion and a time/activity curve was generated and split function of both kidneys was measured and calculated along with other additional parameters. Post CAITLYN inhibitor study: The patient was given 2.5 mg of enalapril intravenously due to swallowing precautions. After 15 minutes, another dose of 11 mCi of technetium 99m MAG3 was given intravenously and repeat posterior planar images of both kidneys were performed in a dynamic and static fashion and a time/activity curve was generated and split function of both kidneys was measured and calculated along with other additional parameters. Comparison: No previous renal nuclear medicine study. Baseline study findings: Split function is 24 % on the left and 76 % on the right. Some of the decreased function of the left kidney is due to the large 5.5 cm cyst seen by sonography. In addition, the left kidney is smaller than the right kidney. Time to peak is 5 minutes on the left and 4 minutes on the right. Half time clearance is about 30 minutes on the left and 23 minutes on the right; both of which are elevated. Percentage of cortical activity with respect to the maximum cortical activity at 20 minutes is elevated on both sides measuring 60% on the left and 51% on the right. Post CAITLYN inhibitor study findings: Split function is 26% on the left and 74% on the right. No change. Time to peak on the left is 6 minutes and time to peak on the right is 5 minutes. No change. Half-time clearance is about 30 minutes on the left and 23 minutes on the right. No change. At 20 minutes, the percentage of cortical activity counts relative to the cortical activity maximum counts is 60% on the left and 51% on the right on the baseline study and 68% on the left and 56% on the right on the post CAITLYN inhibitor study. Therefore, there is an increase in 8 percent on the left and an increase in 5% on the right. Typically, a definite positive study qualifies if there is at least a 10% increase. If there is a 5-10% change, the finding is considered suspicious. Therefore, CTA of the renal arteries may be helpful for further evaluation. IMPRESSION: Relative decrease in renal function on the left kidney in comparison to the right. Some of this is due to the smaller size of the left kidney and a 5.5 cm cyst of the left kidney. Overall, there is decreased renal function of both kidneys with an increase in the half-time clearance of both kidneys. No hydronephrosis was seen on the renal sonogram study. 8% increase on the left and 5% increase on the right between baseline and post CAITLYN inhibitor studies for percent cortical activity at 20 minutes. This is an indeterminate finding and is considered suspicious but not definite for renal arterial stenosis. Therefore, renal CTA may be helpful for further evaluation especially given the finding of possible right renal arterial stenosis on duplex sonography.
== END 2016-11-25 13:50 | DRG 222 ==
LOC: ER 12:30 → 2 NORTH 14:15
PROVIDERS: ADMIT Family Medicine; ATTEND Family Medicine
PROC: 4A023N7 Measurement of Cardiac Sampling and Pressure, Left Heart, Percutaneous Approach (ICD-10-PCS; principal; 2016-11-16)
PROC: B2111ZZ Fluoroscopy of Multiple Coronary Arteries using Low Osmolar Contrast (ICD-10-PCS; 2016-11-16)
PROC: 4A033BC Measurement of Arterial Pressure, Coronary, Percutaneous Approach (ICD-10-PCS; 2016-11-16)
PROC: B2151ZZ Fluoroscopy of Left Heart using Low Osmolar Contrast (ICD-10-PCS; 2016-11-16)
PROC: 0JH608Z Insertion of Defibrillator Generator into Chest Subcutaneous Tissue and Fascia, Open Approach (ICD-10-PCS; 2016-11-17)
PROC: 02HK3KZ Insertion of Defibrillator Lead into Right Ventricle, Percutaneous Approach (ICD-10-PCS; 2016-11-17)
PROC: 0JH60PZ Insertion of Cardiac Rhythm Related Device into Chest Subcutaneous Tissue and Fascia, Open Approach (ICD-10-PCS; 2016-11-17)
PROC: 02H63KZ Insertion of Defibrillator Lead into Right Atrium, Percutaneous Approach (ICD-10-PCS; 2016-11-17)
PROC: 02H633Z Insertion of Infusion Device into Right Atrium, Percutaneous Approach (ICD-10-PCS; 2016-11-20)
PROC: B2141ZZ Fluoroscopy of Right Heart using Low Osmolar Contrast (ICD-10-PCS; 2016-11-20)
DX: I13.0 Hypertensive heart and chronic kidney disease with heart failure and stage 1 through stage 4 chronic kidney disease, or unspecified chronic kidney disease (principal); N17.0 Acute kidney failure with tubular necrosis; I47.2 Ventricular tachycardia; I50.32 Chronic diastolic (congestive) heart failure; N18.4 Chronic kidney disease, stage 4 (severe); N39.0 Urinary tract infection, site not specified; S01.81XA Laceration without foreign body of other part of head, initial encounter; E78.00 Pure hypercholesterolemia, unspecified; E78.5 Hyperlipidemia, unspecified; E86.0 Dehydration; I49.3 Ventricular premature depolarization; M19.90 Unspecified osteoarthritis, unspecified site; I25.10 Atherosclerotic heart disease of native coronary artery without angina pectoris; I25.2 Old myocardial infarction; Z79.82 Long term (current) use of aspirin; Z86.74 Personal history of sudden cardiac arrest; Z86.79 Personal history of other diseases of the circulatory system; Z95.5 Presence of coronary angioplasty implant and graft; Z95.810 Presence of automatic (implantable) cardiac defibrillator
CPT/HCPCS: 33230; 36415; 36569; 70450; 70491; 71010; 72125; 74230; 76770; 76937; 77001; 78707; 78708; 80048; 80053; 80061; 80069; 81001; 82550; 82570; 83735; 83880; 84156; 84443; 84484; 85018; 85027; 85347; 85520; 87086; 93005; 93306; 93458; 93571; 93641; 94250; 94640; 94760; 96374; A9562; C1721; C1751; C1769; C1887; C1892; C1895; C1898; J0153; J0282; J0360; J0610; J0690; J2250; J2704; J3010; J3475; J3490; J7030; J7040; J7050; Q9967; 92526; 92611; 97110; 97116; 97530; 97535; 99285-25

== ENCOUNTER → 2017-01-09 | Outpatient (CLI) | payer MEDICARE, OTHER ==
[~2017-01-09] MED LIST: ATOR40TA59 PO; CLOP75TA PO; LISI1TAB5 PO; NIFE60TA16 PO
--- NOTE | 2017-01-09 16:54 | CARD ---
APPROVED REPORT EXAM: Two-dimensional and M-mode echocardiogram with Doppler and color Doppler. Other Information Quality : Good INDICATION Congestive Heart Failure 2D DIMENSIONS RVDd3.6 (2.9-3.5cm)Left Atrium(2D)4.5 (1.6-4.0cm) IVSd1.1 (0.7-1.1cm)Aortic Root(2D)3.1 (2.0-3.7cm) LVDd4.4 (3.9-5.9cm)LVOT Diameter2.3 (1.8-2.4cm) PWd1.2 (0.7-1.1cm)LVDs3.1 (2.5-4.0cm) FS (%) 29.6 %SV49.4 ml LVEF(%)56.9 (>50%) M-Mode DIMENSIONS Aortic Cusp Exc1.32 (1.5-2.0cm) Aortic Valve AoV Peak Samuel.165.4cm/sAoV VTI34.9cm AO Peak GR.10.9mmHgLVOT Peak Samuel.158.9cm/s LVOT VTI 31.11cmAO Mean GR.6mmHg KALINA (VMAX)3.15ks1PCS (VTI)3.65cm2 Mitral Valve MV E Fehvtoas27.4cm/sMV DECEL [id number] MV A Pushellr86.3cm/sMV [id number] E/A Ratio0.9MVA (PHT)3.43cm2 TDI E/Lateral E'13.5E/Medial E'16.6 Tricuspid Valve TR P. Lnwposnu785wa/sRAP [id number] TR Peak Gr.29onUxCESB44uuPm Pulmonary Vein S1 Grpovajw09.9cm/sD2 Uluyolkl13.3cm/s PVa [id number] LEFT VENTRICLE The left ventricle is normal size. There is mild concentric left ventricular hypertrophy. The left ve ntricular systolic function is normal and the ejection fraction is within normal range. The Ejection Fraction is 55-60%. There is normal LV segmental wall motion. Transmitral Doppler flow pattern is Gra de I-abnormal relaxation pattern. RIGHT VENTRICLE The right ventricle is normal size. The right ventricular systolic function is normal. There is a pac emaker/ICD lead in the right ventricle. ATRIA The left atrium is mildly dilated. The right atrium is mildly dilated. A pacemake/ICD is seen in the right atrium consistent with history. The interatrial septum is intact with no evidence for an atrial septal defect or patent foramen ovale as noted on 2-D or Doppler imaging. AORTIC VALVE The aortic valve is mildly thickened but opens well. Doppler and Color Flow revealed trace to mild ao rtic regurgitation. There is no significant aortic valvular stenosis. MITRAL VALVE The mitral valve is calcified but opens well. There is no evidence of mitral valve prolapse. There is no mitral valve stenosis. Doppler and Color-flow revealed mild mitral regurgitation. TRICUSPID VALVE The tricuspid valve is normal in structure and function. Doppler and Color Flow revealed mild to mode rate tricuspid regurgitation. The PA pressure was estimated at 51 mmHg. There is no tricuspid valve s tenosis. PULMONIC VALVE The pulmonary valve is normal in structure and function. Doppler and Color Flow revealed mild pulmoni c valvular regurgitation. There is no pulmonic valvular stenosis. GREAT VESSELS The aortic root is normal in size. The ascending aorta is normal in size. The IVC is normal in size a nd collapses <50% with inspiration. PERICARDIAL EFFUSION There is no evidence of significant pericardial effusion. Critical Notification Critical Value: No <Conclusion> The left ventricle is normal size. The left ventricular systolic function is normal and the ejection fraction is within normal range. The Ejection Fraction is 55-60%. There is mild concentric left ventricular hypertrophy. The right atrium is mildly dilated. A pacemake/ICD is seen in the right atrium consistent with history. There is no significant aortic valvular stenosis. Doppler and Color Flow revealed trace to mild aortic regurgitation. Doppler and Color-flow revealed mild mitral regurgitation. Doppler and Color Flow revealed mild to moderate tricuspid regurgitation. The PA pressure was estimated at 51 mmHg.
== END | disposition home or self-care (01) ==
LOC: ECHO 12:51
PROVIDERS: ATTEND Internal Medicine Cardiovascular Disease
DX: I08.3 Combined rheumatic disorders of mitral, aortic and tricuspid valves (principal)
CPT/HCPCS: 93306

== ENCOUNTER → 2017-02-27 | Outpatient (CLI) | payer MEDICARE, OTHER ==
[2017-02-27 13:37] LABS: BASO # 0.1 x10^3/uL (0.0-0.2); BASO % 1 % (0-3); EOS % 2 % (0-3); HEMATOCRIT 37.6 % (39.0-53.0); HEMOGLOBIN 12.5 g/dL (13.0-17.5); LYMPH # 1.9 x10^3/uL (1.0-4.8); LYMPH % 28 % (24-48); MEAN CORPUSCULAR HEMOGLOBIN 29 pg (25-35); MEAN CORPUSCULAR HGB CONC 33 g/dL (31-37); MEAN CORPUSCULAR VOLUME 88 fL (79-100); MONO % 15 % (0-9); NEUT % 55 % (31-73); PLATELET COUNT 166 x10^3/uL (140-400); RED BLOOD COUNT 4.25 x10^6/uL (4.30-5.70); RED CELL DISTRIBUTION WIDTH 15.5 % (11.5-14.5); WHITE BLOOD COUNT 6.9 x10^3/uL (4.0-11.0)
[2017-02-27 14:06] LABS: CALCIUM 8.1 mg/dL (8.5-10.1); CREATININE 2.2 mg/dL (0.7-1.3); GFR 28.5; MAGNESIUM 2.1 mg/dL (1.8-2.4); PHOSPHORUS 4.1 mg/dL (2.6-4.7); POTASSIUM 4.2 mmol/L (3.5-5.1)
[2017-02-28 05:17] LABS: PTH INTACT 141 pg/mL (15-65)
== END | disposition home or self-care (01) ==
LOC: LAB 13:08
PROVIDERS: ATTEND Nurse Practitioner Family
DX: N17.9 Acute kidney failure, unspecified (principal); Z68.26 Body mass index [BMI] 26.0-26.9, adult
CPT/HCPCS: 36415; 80069; 83735; 83970; 85027

== ENCOUNTER → 2017-03-07 | Outpatient (CLI) | payer MEDICARE, OTHER ==
[~2017-03-07] MED LIST changes: +REGADENOSON 0.4 MG/5 ML DISP.SYRIN. IV ONE
--- NOTE | 2017-03-07 15:08 | RAD ---
APPROVED REPORT Test Type: Pharmacological Stress Nurse/Tech: DUSTY DAVISON Test Indications: CAD Cardiac History: HTN, CARDIAC STENTS, PACEMAKER/DEFIBRILATOR, SEE EHR Medications: SEE EHR Medical History: SEE EHR Resting ECG: SR WITH PAC'S Resting Heart Rate: 63 bpm Resting Blood Pressure: 199/92mmHg Pretest Chest Pain: No chest pain Nurse/Tech Notes LUNG SOUNDS CLEAR, S1S2 WNL. Consent: The procedure was explained to the patient in lay terms. Informed consent was witnessed. Bebeto eout was entered into 1bib. History and Stress Test performed by TIMOTHY Fernandes Pharm. Details Pharmacologic stress testing was performed using 0.4mg per 5ml of regadenoson given intravenously ove r 7-10 seconds. Stress Symptoms NONE STATED. POST EXERCISE Reason for Termination: Infusion complete Max HR: 77 bpm Max Blood Pressure: 199/92mmHg Chest Pain: No. Arrhythmia: No. ST Change: No. INTERPRETATION Stress EKG Conclusion: Baseline EKG showed sinus rhythm. No ischemic changes at peak stress. No arr hythmias. Imaging Protocol IMAGE PROTOCOL: Rest Tc-99m/stress Tc-99m 1 day Rest: Stress: Viability: Radiopharm.Tc99m DcoilwpmxJo45o Sestamibi Dose10.5mCi 34.5mCi Duration 15min. 10min. Img Date 03/07/2017 03/07/2017 Inj-Img Pfzh59xkg. 60min. Rest Admin Site:IV - Left ForearmAdministrator:RT Surjit (R)(N) Stress Admin Site: IV - Left ForearmAdministrator: TIMOTHY Fernandes STRESS DATA End Diast. Vol.120.0mlAv. Heart Rate72.0bpm End Syst. Vol.68.0mlCO Index BSA0.0L/min Myocardial Sgur220.0gEject. Uenxurwv73.0% Stress Rates Pk. Fill Rate2.55EDV/secLVtime Pk. Fill 201.17msec Pk. Empty Rate3.06ESV/secLVtime Pk. Cpzes245.89msec 08/22 Pk. Fill0.38EDV/sec Stress Scores Regional WT3.00Summed WT27.00 Regional WM0.00Summed WM14.00 Lung uptake was Normal. Left Ventricular ejection fraction is 43%. LV Perfusion Scintigraphic images did not show any significant fixed or reversible defects. Wall Motion Mild left ventricle systolic dysfunction. LV Perf. Quant 17 Seg. SSS2.00 17 Seg. SRS0.00 17 Seg. SDS2.00 Stress Defect Extent (% LAD)0.00Rest Defect Extent (% LAD)0.00Rev. Defect Extent (% LAD)0.00 Stress Defect Extent (% LCX) 17.50Rest Defect Extent (% LCX)0.00Rev. Defect Extent (% LCX)11.30 Stress Defect Extent (% RCA)0.00Rest Defect Extent (% RCA)0.00Rev. Defect Extent (% RCA)0.00 Stress Defect Extent (% JUAN)3.00Rest Defect Extent (% JUAN)0.00Rev. Defect Extent (% JUAN)2.00 Conclusion 1. Regadenoson cardioisotope stress test did not show any evidence of ischemia or infarct. 2. Mild left ventricle systolic dysfunction with ejection fraction calculated at 43%. 3. Low to intermediate risk for cardiac events.
== END ==
LOC: NM 09:07
PROVIDERS: ATTEND Internal Medicine Cardiovascular Disease
DX: I25.10 Atherosclerotic heart disease of native coronary artery without angina pectoris (principal)
CPT/HCPCS: 78452; 93017; 96374; 96375; 96376; A9500; J2785